=== PATIENT | male | born 1945 | race Caucasian/White ===

== ENCOUNTER 2019-03-24 15:24 | Outpatient (RCR) | payer MEDICAID, SELFPAY | END 2019-04-07 00:01 | LOC: WOUND 15:24 | PROVIDERS: Family Provider Family Medicine; Visit Provider Thoracic Surgery (Cardiothoracic Vascular Surgery) | DX: Z09 Encounter for follow-up examination after completed treatment for conditions other than malignant neoplasm (principal) | CPT/HCPCS: 29581; 99212 ×2 ==

== ENCOUNTER 2020-04-05 08:42 | Outpatient (CLI) | payer MEDICAID, SELFPAY | END 2020-04-05 08:43 | disposition home or self-care (01) | LOC: WOUND 08:43 | PROVIDERS: Visit Provider Nurse Practitioner Family | DX: I87.2 Venous insufficiency (chronic) (peripheral) (principal); L97.312 Non-pressure chronic ulcer of right ankle with fat layer exposed; L97.812 Non-pressure chronic ulcer of other part of right lower leg with fat layer exposed | CPT/HCPCS: 87070; 87077; 87176; 87186; 87205; 99214 ==

== ENCOUNTER 2020-04-07 13:03 | Outpatient (CLI) | payer MEDICAID, SELFPAY | END 2020-04-07 13:04 | disposition home or self-care (01) | LOC: WOUND 13:03 | PROVIDERS: Visit Provider Nurse Practitioner Family | DX: I87.2 Venous insufficiency (chronic) (peripheral) (principal); L97.822 Non-pressure chronic ulcer of other part of left lower leg with fat layer exposed; L97.312 Non-pressure chronic ulcer of right ankle with fat layer exposed | CPT/HCPCS: 29581 ==

== ENCOUNTER 2020-04-12 13:10 | Outpatient (CLI) | payer MEDICAID, SELFPAY | END 2020-04-12 13:11 | disposition home or self-care (01) | LOC: WOUND 13:10 | PROVIDERS: Visit Provider Thoracic Surgery (Cardiothoracic Vascular Surgery) | DX: I87.2 Venous insufficiency (chronic) (peripheral) (principal); L97.312 Non-pressure chronic ulcer of right ankle with fat layer exposed; L97.812 Non-pressure chronic ulcer of other part of right lower leg with fat layer exposed | CPT/HCPCS: 11042 ==

== ENCOUNTER 2020-04-13 13:35 | Outpatient (CLI) | payer MEDICAID, SELFPAY ==
--- NOTE | 2020-04-13 13:43 | USCV_ITS ---
Jose Weldon Age: 74 Gender: M : 1945 Exam Date: 04/13/2020 14:10 Ordering Phys: Nikolas Harris MD (Andy) ([email or web address]) Technologist: Luis Mast [place] [facility] [place]: SWELLING HISTORY: Lower extremity swelling. PROCEDURES: Venous duplex imaging was performed in only the right lower extremity. The following venous structures were evaluated: common femoral vein, profunda vein, proximal portion of the greater saphenous vein, superficial femoral vein, and the popliteal vein. In addition, the posterior tibial and peroneal trunk were evaluated. Serial compression, augmentation maneuvers, and spectral Doppler flow evaluation were performed. FINDINGS: Normal 2-D Doppler and augmentation and compressibility throughout the lower extremity venous structures. Additional imaging through the proximal calf veins also reveals no thrombus. Limited evaluation of the greater saphenous vein is patent with no thrombus. CONCLUSIONS No DVT right lower extremity. Dr. Elida Ruiz DO (Electronically Signed) Final Date: 14 April 2020 08:01 S
== END 2020-04-13 13:36 | disposition home or self-care (01) ==
LOC: RAD 13:37
PROVIDERS: Visit Provider Thoracic Surgery (Cardiothoracic Vascular Surgery)
DX: M79.89 Other specified soft tissue disorders (principal)
CPT/HCPCS: 93971

== ENCOUNTER 2020-04-13 14:54 | Outpatient (CLI) | payer MEDICAID, SELFPAY | END 2020-04-13 14:55 | disposition home or self-care (01) | LOC: WOUND 14:54 | PROVIDERS: Visit Provider Nurse Practitioner Family | DX: I87.2 Venous insufficiency (chronic) (peripheral) (principal); L97.312 Non-pressure chronic ulcer of right ankle with fat layer exposed; L97.822 Non-pressure chronic ulcer of other part of left lower leg with fat layer exposed | CPT/HCPCS: 29581 ==

== ENCOUNTER 2020-04-17 16:47 | Emergency (ER) | payer MEDICAID, SELFPAY ==
[2020-04-17 16:59] VITALS: BP 107/70; PULSE 75; RESP 14; TEMP 36.9; O2SAT 99; BMI 20.9
[2020-04-17 18:26] VITALS: BP 156/87; PULSE 82; RESP 18; O2SAT 100
--- NOTE | 2020-04-17 18:53 | CTR_ITS ---
PROCEDURE INFORMATION: Exam: CT Abdomen And Pelvis With Contrast Exam date and time: 04/17/2020 7:05 PM Age: 74 years old Clinical indication: Abdominal pain; Prior surgery; Surgery type: Hernia; Additional info: Rlq pain TECHNIQUE: Imaging protocol: Computed tomography of the abdomen and pelvis with intravenous contrast. Total images: 212 Radiation optimization: All CT scans at this facility use at least one of these dose optimization techniques: automated exposure control; mA and/or kV adjustment per patient size (includes targeted exams where dose is matched to clinical indication); or iterative reconstruction. Contrast material: OMNI 300; Contrast volume: 95 ml; Contrast route: INTRAVENOUS (IV); COMPARISON: No relevant prior studies available. RADIATION DOSE METRICS: Total DLP (mGy-cm): 328.91 FINDINGS: Lungs: Limited assessment of the lung bases fails to reveal evidence for active cardiopulmonary process. Liver: Rare hepatic calcified granuloma. No visible hepatic mass or cystic structure. Gallbladder and bile ducts: Gallbladder is partially contracted. No visible cholelithiasis. No visible intra or extrahepatic biliary ectasia. Pancreas: Unremarkable for age. No ductal dilation. Spleen: Normal. No splenomegaly. Adrenal glands: Unremarkable. No mass. Kidneys and ureters: Bilateral small simple renal cortical cysts. No follow-up recommended. No hydronephrosis or perinephric fluid. No visible nephrolithiasis. No visible ureterolithiasis. Stomach and bowel: Heavy fecal residue consistent with constipation. Nonobstructive bowel pattern. No visible significant adynamic or reactive ileus. Appendix: No evidence of appendicitis. Intraperitoneal space: No visible pneumoperitoneum. No visible intraperitoneal ascites. No visible evidence of mesenteric lymphadenitis or active mesenteritis/panniculitis. Vasculature: The abdominal aorta is nonaneurysmal. Mild arterial sclerotic disease. Lymph nodes: No current visible evidence of active mesenteric or retroperitoneal lymphadenopathy. Urinary bladder: Large right lateral bladder diverticulum measuring 51 mm x 31 mm x 49 mm. Within the diverticulum is a 5 mm bladder stone. Distended urinary bladder. Reproductive: Prostate hypertrophy. Bones/joints: No visible active or acute osseous abnormality. Degenerative disc disease L4/5 and L5/S1. Mild spondylosis deformans. Facet arthrosis. Dysplastic right hip. Soft tissues: Unremarkable. CT/CT abdomen pelvis w con* [id number] IMPRESSION: 1. Currently no visible evidence of acute abdominal or pelvic pathologic process. 2. Heavy fecal residue consistent with constipation. 3. Large right lateral bladder diverticulum containing a 5 mm bladder stone. 4. Other nonurgent, nonemergent, chronic, and age related findings as detailed in text above. COMMENTS: Consistent with the [employer]'s Incidental Findings Committee white paper (J Am Elizabeth Radiol 2018): Any incidental renal lesion less than 1 cm or classified as too small to characterize, or any incidental cystic renal lesion characterized as simple-appearing, is likely benign. No follow-up imaging is recommended for these lesions per consensus recommendations based on imaging criteria. Radiation Dose CTDIVOL = (mGy): DLP = 328.91 (mGy-cm)
[2020-04-17] MEDS: sodium chloride 0.9% 1,000 ML 999 ML IV (18:56)
[2020-04-17 19:08] VITALS: BP 150/72; PULSE 61; RESP 16; O2SAT 100
[2020-04-17 19:08] LABS: Add Urine Microscopic? NO
[2020-04-17 19:08] LABS: Basophils # 0.1 10^3/uL (0.0-0.1); Eosinophils # 0.5 10^3/uL (0.0-0.8); Hematocrit 41.1 % (42.0-52.0); Hemoglobin 13.3 g/dL (11.7-16.6); Lymphocytes # 1.7 10^3/uL (0.8-4.8); Lymphocytes % 24.2 %; Mean Corpuscular HGB Conc 32.4 g/dL (30.0-36.0); Mean Corpuscular Hemoglobin 31.4 pg (28.0-34.0); Mean Corpuscular Volume 96.9 fL (80-94); Mean Platelet Volume 10.2 fL (7.4-10.4); Monocytes # 0.7 10^3/uL (0.2-0.9); Monocytes % 9.8 %; Neutrophils # 4.15 10^3/uL (1.8-7.7); Neutrophils % 57.9 %; Nucleated Red Blood Cells % 0 %; Platelet Count 238 10^3/cmm (130-400); Red Blood Count 4.24 10^6/uL (4.1-5.3); Red Cell Distribution Width 13.9 % (12.1-15.1); White Blood Count 7.2 10^3/uL (4.0-10.0)
[2020-04-17 19:23] LABS: Bilirubin Urine Neg (Negative); Blood Urine Neg (Negative); Glucose Urine UA Norm (Normal); Ketones Urine Negative (Negative); Nitrate Urine Negative (Negative); Protein Urine Neg (Negative); Specific Gravity, Urine 1.015 (1.005-1.030); Urine Appearance Clear (CLEAR); Urine Color Yellow (Yellow); pH Urine 7 (5-7)
[2020-04-17 19:23] LABS: Lactate (Lactic Acid level) 1.1 mmol/L (0.5-2.2)
[2020-04-17 19:24] LABS: Alanine Aminotransferase 12 U/L (0-41); Albumin Level 3.7 g/dL (3.5-5.2); Alkaline Phosphatase 115 IU/L (40-130); Anion Gap 10.9 (5-19); Blood Urea Nitrogen 14 mg/dL (8-23); C Reactive Protein 2.2 mg/L (0.0-4.9); Calcium 8.4 mg/dL (8.5-10.5); Carbon Dioxide 29 mmol/L (22-29); Chloride 106 mmol/L (98-107); Globulin 2.6 g/dL (1.3-4.6); Glucose 99 mg/dL (65-115); Lipase 15 U/L (13-60); Osmolality Calculated 295 mOsm/kg (285-295); Potassium 3.9 mmol/L (3.5-5.1); Sodium 142 mmol/L (136-145); Total Bilirubin 0.5 mg/dL (0.15-1.2); Total Protein 6.3 g/dL (6.6-8.7)
[2020-04-17 19:24] LABS: Leukocyte Esterase Urine Negative (Negative); Urobilinogen Urine Norm (Negative)
[2020-04-17 19:33] LABS: Aspartate Amino Transferase 19 U/L (0-40)
[2020-04-17] MEDS: iohexol 300 mg/mL 100 mL Btl IV (19:49)
[2020-04-17 20:40] VITALS: BP 124/69; PULSE 66; RESP 16; O2SAT 98
[2020-04-17 22:12] VITALS: BP 121/67; PULSE 60; RESP 18; O2SAT 99
--- NOTE | 2020-04-18 00:07 | ED_ITS ---
HPI - Abdominal Pain General: Chief Complaint: Abdominal Pain Stated Complaint: Rt side pain Time Seen by Provider: 04/17/20 18:36 History of Present Illness: HPI narrative: He 4-year-old gentleman complains of right-sided belly pain for the past couple of days. No fever, no vomiting. The pain is a sharp stabbing pain that is intermittent. He notes that he has not had a bowel movement in a couple of days despite taking stool softeners. He also complains of a rash to his forearms, neck, and legs. He has been using a vinegar, and alcohol on the rash without improvement. He has been on antibiotics for cellulitis to his right lower extremity under wound care. He was first on cephalexin, and then has been on clindamycin for a couple of weeks. The rash started while on Keflex, but has continued on the clindamycin. He notes that he may have had contact with someone with a similar rash from home health. MD elicited complaint: abdominal pain Onset (ago): day(s) Pain Consistency: intermittent Location: RUQ and RLQ Severity: moderate Quality: sharp Relieving factors: nothing Associated Symptoms: Reports constipation; Denies diarrhea, dysuria, fever(s) and hematemesis Review of Systems Const: Denies: fever(s) Card: Denies: chest pain or palpitations Resp: Denies: dyspnea, productive cough, non-productive cough or wheezing GI: Reports: constipation; Denies: hematemesis or diarrhea : Denies: dysuria Neuro: Denies: headache(s) or confusion PFS ED PFSH: Social History (Updated 03/22/20 @ 12:02 by Juany Gutierrez LPN) Smoking and tobacco status: former smoker Second hand smoke exposure: Yes Alcohol intake: never Physical Exam Const: COMMON NORMALS: no acute distress, patient oriented x3 and alert Eye: COMMON NORMALS: Equal, round and reactive pupils present and EOMs intact bilaterally PUPIL: Yes Equal, round and reactive pupils present Chest: COMMONS NORMALS: normal inspection of the chest Resp: COMMON NORMALS: normal respiratory effort, No retractions, No use of accessory muscles and clear to auscultation bilaterally AUSCULTATION: clear to auscultation bilaterally Cardio: COMMON NORMALS: regular rate and regular rhythm RATE: regular rate RHYTHM: regular rhythm GI: COMMON NORMALS: Normal to inspection, nondistended, normoactive bowel soun ds present PALPATION: Yes Tenderness to palpation present (GI) (mild) Details: RLQ PERCUSSION: normal to percussion Neuro: COMMON NORMALS: patient oriented x3 SENSORIUM/ORIENTATION: Yes alert Skin: NARRATIVE SKIN EXAM: Micropapular rash to extremities and neck with plaques and some lichenification to the forearms. Likely folliculitis but in the differential would be scabies type rash. Course Vital Signs: Vital signs: Vital Signs Temperature 98.4 F 04/17/20 16:59 Pulse Rate 60 04/17/20 22:12 Respiratory Rate 18 04/17/20 22:12 Blood Pressure 121/67 04/17/20 22:12 Pulse Oximetry 99 04/17/20 22:12 MDM - Abdominal Pain MDM Narrative: Medical decision making narrative: White blood cell count 7.2. Electrolytes are normal. Hemoglobin 13.3. CT is remarkable for constipation without acute changes. Rash appears to be folliculitis versus scabies he will be prescribed magnesium citrate for constipation, triamcinolone ointment for the rash, and permethrin ointment because scabies is in the differential. Lab Data: Labs: Lab Results 04/17/20 04/17/20 04/17/20 Range/Units 18:52 18:52 18:52 WBC 7.2 (4.0-10.0) 10^3/ uL RBC 4.24 (4.1-5.3) 10^6/u L Hgb 13.3 (11.7-16.6) g/dL Hct 41.1 L (42.0-52.0) % MCV 96.9 H (80-94) fL MCH 31.4 (28.0-34.0) pg MCHC 32.4 (30.0-36.0) g/dL RDW 13.9 (12.1-15.1) % Plt Count 238 (130-400) 10^3/c mm MPV 10.2 (7.4-10.4) fL Neut % (Auto) 57.9 % Lymph % (Auto) 24.2 % [place] % (Auto) 9.8 % Eos % (Auto) 7.0 % Baso % (Auto) 1.0 % Neut # (Auto) 4.15 (1.8-7.7) 10^3/u L Lymph # (Auto) 1.7 (0.8-4.8) 10^3/u L [place] # (Auto) 0.7 (0.2-0.9) 10^3/u L Eos # (Auto) 0.5 (0.0-0.8) 10^3/u L Baso # (Auto) 0.1 (0.0-0.1) 10^3/u L Nucleated RBC % (a uto) 0 % Nucleated RBCs # 0.0 /100WBC Sodium 142 (136-145) mmol/L Potassium 3.9 (3.5-5.1) mmol/L Chloride 106 (98-107) mmol/L Carbon Dioxide 29 (22-29) mmol/L Anion Gap 10.9 (5-19) BUN 14 (8-23) mg/dL Creatinine 0.7 (0.7-1.2) mg/dL GFR Calculation Not Reportable Glucose 99 (65-115) mg/dL Calculated Osmolal ity 295 (285-295) mOsm/k g Lactate 1.1 (0.5-2.2) mmol/L Calcium 8.4 L (8.5-10.5) mg/dL Total Bilirubin 0.5 (0.15-1.2) mg/dL AST 19 (0-40) U/L ALT 12 (0-41) U/L Alkaline Phosphata se 115 (40-130) IU/L C-Reactive Protein 2.2 (0.0-4.9) mg/L Total Protein 6.3 L (6.6-8.7) g/dL Albumin 3.7 (3.5-5.2) g/dL Globulin 2.6 (1.3-4.6) g/dL Lipase 15 (13-60) U/L Urine Color (Yellow) Urine Appearance (CLEAR) Urine pH (5-7) Ur Specific Gravit y (1.005-1.030) Urine Protein (Negative) Urine Glucose (UA) (Normal) Urine Ketones (Negative) Urine Blood (Negative) Urine Nitrate (Negative) Urine Bilirubin (Negative) Urine Urobilinogen (Negative) mg/dL Ur Leukocyte Elena ase (Negative) 04/17/20 Range/Units 18:56 WBC (4.0-10.0) 10^3/ uL RBC (4.1-5.3) 10^6/u L Hgb (11.7-16.6) g/dL Hct (42.0-52.0) % MCV (80-94) fL MCH (28.0-34.0) pg MCHC (30.0-36.0) g/dL RDW (12.1-15.1) % Plt Count (130-400) 10^3/c mm MPV (7.4-10.4) fL Neut % (Auto) % Lymph % (Auto) % [place] % (Auto) % Eos % (Auto) % Baso % (Auto) % Neut # (Auto) (1.8-7.7) 10^3/u L Lymph # (Auto) (0.8-4.8) 10^3/u L [place] # (Auto) (0.2-0.9) 10^3/u L Eos # (Auto) (0.0-0.8) 10^3/u L Baso # (Auto) (0.0-0.1) 10^3/u L Nucleated RBC % (a uto) % Nucleated RBCs # /100WBC Sodium (136-145) mmol/L Potassium (3.5-5.1) mmol/L Chloride (98-107) mmol/L Carbon Dioxide (22-29) mmol/L Anion Gap (5-19) BUN (8-23) mg/dL Creatinine (0.7-1.2) mg/dL GFR Calculation Glucose (65-115) mg/dL Calculated Osmolal ity (285-295) mOsm/k g Lactate (0.5-2.2) mmol/L Calcium (8.5-10.5) mg/dL Total Bilirubin (0.15-1.2) mg/dL AST (0-40) U/L ALT (0-41) U/L Alkaline Phosphata se (40-130) IU/L C-Reactive Protein (0.0-4.9) mg/L Total Protein (6.6-8.7) g/dL Albumin (3.5-5.2) g/dL Globulin (1.3-4.6) g/dL Lipase (13-60) U/L Urine Color Yellow (Yellow) Urine Appearance Clear (CLEAR) Urine pH 7 (5-7) Ur Specific Gravit y 1.015 (1.005-1.030) Urine Protein Neg (Negative) Urine Glucose (UA) Norm (Normal) Urine Ketones Negative (Negative) Urine Blood Neg (Negative) Urine Nitrate Negative (Negative) Urine Bilirubin Neg (Negative) Urine Urobilinogen Norm (Negative) mg/dL Ur Leukocyte Elena ase Negative (Negative) Discharge Plan Discharge Patient Disposition: Home Clinical Impression: Folliculitis Constipation Qualifiers: Constipation type: slow transit constipation Qualified Code(s): K59.01 - Slow transit constipation Condition: Stable Prescriptions: New triamcinolone acetonide 0.1 % ointment 1 applic topical BID Qty: 80 RF: 0 permethrin 5 % cream 1 applic topical Q14D Qty: 60 RF: 1 No Action aspirin 81 mg tablet,delayed release (DR/EC) 81 mg PO DAILY PRNRF: 0 cephalexin 500 mg capsule 500 mg PO QID 7 Days Qty: 28 RF: 0 mupirocin 2 % ointment 1 applic topical TID 7 Days Qty: 15 RF: 0 Discharge Orders: Discharge ED (Routine); Ordered 04/17/20 Ordered By: Bhupendra Forde Discharge Diet: Advance as tolerated Discharge Activity: Increase activity as tolerated Patient Instructions: Constipation (ED), Scabies (ED), Folliculitis (ED) Coding Level of 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
== END 2020-04-17 22:14 | disposition home or self-care (01) ==
PROVIDERS: Emergency Provider Emergency Medicine
DX: K59.01 Slow transit constipation (principal); L73.9 Follicular disorder, unspecified; Z79.82 Long term (current) use of aspirin; Z77.22 Contact with and (suspected) exposure to environmental tobacco smoke (acute) (chronic)
CPT/HCPCS: 12345; 74177; 80053; 81003; 83605; 83690; 85025; 86140; 96360; 99283; J7030; Q9967

== ENCOUNTER 2020-04-19 09:54 | Outpatient (CLI) | payer MEDICAID, SELFPAY | END 2020-04-19 09:55 | disposition home or self-care (01) | LOC: WOUND 09:55 | PROVIDERS: Visit Provider Thoracic Surgery (Cardiothoracic Vascular Surgery) | DX: I87.2 Venous insufficiency (chronic) (peripheral) (principal); L97.312 Non-pressure chronic ulcer of right ankle with fat layer exposed; L97.812 Non-pressure chronic ulcer of other part of right lower leg with fat layer exposed | CPT/HCPCS: 11042 ==

== ENCOUNTER 2020-04-26 13:33 | Outpatient (CLI) | payer MEDICAID, SELFPAY | END 2020-04-26 13:34 | disposition home or self-care (01) | LOC: WOUND 13:34 | PROVIDERS: Visit Provider Thoracic Surgery (Cardiothoracic Vascular Surgery) | DX: I87.2 Venous insufficiency (chronic) (peripheral) (principal); L97.312 Non-pressure chronic ulcer of right ankle with fat layer exposed | CPT/HCPCS: 11042 ==

== ENCOUNTER 2020-05-03 13:30 | Outpatient (CLI) | payer MEDICAID, SELFPAY | END 2020-05-03 13:31 | disposition home or self-care (01) | LOC: WOUND 13:31 | PROVIDERS: Visit Provider Thoracic Surgery (Cardiothoracic Vascular Surgery) | DX: I87.2 Venous insufficiency (chronic) (peripheral) (principal); L97.312 Non-pressure chronic ulcer of right ankle with fat layer exposed; E11.622 Type 2 diabetes mellitus with other skin ulcer | CPT/HCPCS: 11042 ==

== ENCOUNTER 2020-05-10 13:38 | Outpatient (CLI) | payer MEDICAID, SELFPAY | END 2020-05-10 13:39 | disposition home or self-care (01) | LOC: WOUND 13:38 | PROVIDERS: PCP Nurse Practitioner Family; Visit Provider Thoracic Surgery (Cardiothoracic Vascular Surgery) | DX: Z09 Encounter for follow-up examination after completed treatment for conditions other than malignant neoplasm (principal) | CPT/HCPCS: 99212; A6530; A6545 ==

== ENCOUNTER 2020-05-11 11:53 | Outpatient (CLI) | payer MEDICAID, SELFPAY ==
--- NOTE | 2020-05-11 12:06 | XR_ITS ---
WS: [id number] KUB, AP view, 05/11/2020 Clinical Data: Stones Comparison: CT abdomen and pelvis, 04/17/2020 Findings: No abnormal intraabdominal masses are seen. There is no dilatated small bowel or evidence of obstruct ion. There is air and fecal material obscuring detail over both kidneys. There are phleboliths in the true pelvis. There is a calcification on the right side of the true pelvis which may represent the calcul us in the bladder diverticulum. XR/XR KUB [id number] Impression: Possible right true pelvic calcification in a bladder diverticulum.
== END 2020-05-11 11:54 | disposition home or self-care (01) ==
PROVIDERS: PCP Nurse Practitioner Family; Visit Provider Urology
DX: N21.0 Calculus in bladder (principal)
CPT/HCPCS: 74018; 81003

== ENCOUNTER → 2020-05-24 12:45 | Outpatient (BNVA) | payer MEDICAID, SELFPAY | PROVIDERS: PCP Nurse Practitioner Family; Visit Provider Urology | DX: N40.1 Benign prostatic hyperplasia with lower urinary tract symptoms (principal) | CPT/HCPCS: 87635 ==

== ENCOUNTER 2020-05-30 15:44 | Observation (INO) | payer MEDICAID, SELFPAY ==
[2020-05-27 10:44] VITALS: BMI 21.4
[2020-05-30] VITALS (13 sets, daily range): BP systolic 111–157; BP diastolic 50–91; PULSE 69–84; RESP 15–20; TEMP 36.2–37; O2SAT 94–99
--- NOTE | 2020-05-30 12:18 | XR_ITS ---
WS: [id number] Exam: XR chest 2V* [id number] Date/Time of Exam: 05/30/2020 12:25 PM Reason For Exam: TURP. Comparison 11/18/2018. The lungs are hyperinflated and clear. Several small calcified pleural plaques on the left. Normal ca rdiomediastinal structures. Bilateral apical pleural thickening. XR/XR chest 2V* [id number] IMPRESSION: 1. Pulmonary hyperinflation which might indicate COPD. No acute cardiopulmonary process.
[2020-05-30] MEDS: sodium chloride 0.9% 1,000 ML 30 ML IV ×2 (13:13→18:33)
--- NOTE | 2020-05-30 13:26 | ANES.PREANE2 ---
Pre-Anesthetic Assessment Pre-Anesthetic Assessment: Height/Weight: Height 1.83 m Weight 71.668 kg Temp Pulse Resp BP Pulse Ox 98.6 F 69 18 144/91 98 05/30/20 12:33 05/30/20 12:33 05/30/20 12:33 05/30/20 12:33 05/30/20 12:33 Preop Diagnosis: Urinary retention secondary to BPHRefractory Proposed Procedure: Operation Date: 05/30/20 13:10 Proposed Procedures p TRANSURETHRAL RESECTION/VAPORIZATION OF PROSTATE 75509 n40.1(Not Applicable) - Major Wilder MD s Cystoscopy(Not Applicable) - Major Wilder MD Was Beta Andres taken within 24 hours: N/A Last intake: Intake Last Liquid Date 05/30/20 Last Liquid Time 08:00 Last Solid Date 05/29/20 Last Solid Time 11:30 Social: Social History: No alcohol (h/o smoking quit 20yrs/ago) and No tobacco Exam: Pre-Anes Outpt Exam: alert, oriented x 3 and regular rate & rhythm Airway: Submandibular: WNL Cervical ROM: WNL MP: 2 Dentition: False Pulmonary: Pulmonary: COPD CV/HEM: CV/HEM: CAD and HTN Anesthetic Plan: ASA status: 3 Anesthesia: General Risk of > 500 ml blood loss (7ml/kg in children): No Meds/Allergies Current Medications: Current Medications Generic Name Dose Route Start Last Admin Trade Name Freq PRN Reason Stop Dose Admin Sodium Chloride 1,000 mls @ 30 ml s/hr 05/30/20 12:30 05/30/20 13:13 Sodium Chloride 0.9% IV 05/31/20 12:29 30 mls/hr .Q24H GITA Administration PFSH Anesthesia PFSH: Medical History Bladder diverticulum Bladder stone Venous stasis of both lower extremities Family History Mother Cancer Father Cancer Other CAD (coronary artery disease) Diabetes Social History Smoking and tobacco status: former smoker Second hand smoke exposure: Yes Alcohol intake: never Data Anesthesia CBC & Chem 7: 05/30/20 13:09 Cardiac Studies: No Data to Display
[2020-05-30 13:35] LABS: Basophils # 0.1 10^3/uL (0.0-0.1); Basophils % 1.2 %; Eosinophils # 0.2 10^3/uL (0.0-0.8); Eosinophils % 3.2 %; Hematocrit 39.1 % (42.0-52.0); Hemoglobin 12.4 g/dL (11.7-16.6); Lymphocytes # 1.3 10^3/uL (0.8-4.8); Lymphocytes % 22.8 %; Mean Corpuscular HGB Conc 31.7 g/dL (30.0-36.0); Mean Corpuscular Hemoglobin 30.5 pg (28.0-34.0); Mean Corpuscular Volume 96.3 fL (80-94); Mean Platelet Volume 9.6 fL (7.4-10.4); Monocytes # 0.7 10^3/uL (0.2-0.9); Monocytes % 12.2 %; Neutrophils # 3.54 10^3/uL (1.8-7.7); Neutrophils % 60.3 %; Nucleated Red Blood Cells % 0 %; Platelet Count 299 10^3/cmm (130-400); Red Blood Count 4.06 10^6/uL (4.1-5.3); Red Cell Distribution Width 13.3 % (12.1-15.1); White Blood Count 5.9 10^3/uL (4.0-10.0)
--- NOTE | 2020-05-30 14:12 | P.OP_ITS ---
Operative Report Date of procedure: May 30, 2020 Pre-op Diagnosis: Urinary retention secondary to BPH, Refractory Post-op diagnosis: same Procedure Done: Cystoscopy, transurethral resection/vaporization of the prostate Pathology: none sent Surgeon: Tina Anesthesia: General Urine output: Not measured Complications: None Findings: Trilobar enlargement of the prostate. Large intravesically protruding median lobe. Moderate to severe trabeculation. Condition: stable Disposition: PACU Brief History: 74-year-old white male with chronic progressive lower urinary tract symptoms consistent with BPH/obstruction and corresponding cystoscopic findings including trilobar enlargement of the prostate with a large intravesically protruding median lobe acting as a ball-valve type effect. Severely trabeculated bladder with multiple cellules and diverticuli. Overall some decline in cognitive function making a trial of intermittent catheterization not a good choice and based on the chronic findings it was elected to proceed with TURP/TUVP. Procedure: After routine preoperative evaluation examination and obtaining of informed consent he was taken to the operating suite on 05/30/2020 where general anesthesia was administered without difficulty after appropriate timeout was performed, SCDs confirmed to be functioning, preoperative antibiotics administered, beta-pham protocol confirmed. Prepped and draped in usual sterile fashion in dorsolithotomy position paying careful attention to avoiding pressure points. 21 Italian cystoscope with 30 degree lens was introduced into urethral meatus and advanced into the bladder under videoscopy. Trilobar enlargement of the prostate with a very large intravesically protruding median lobe acting as a ball valve was identified. Bladder was carefully inspected. No mucosal abnormalities were identified. He did have severe trabeculation and multiple diverticuli. Urethra was then calibrated with Daly sounds and easily accommodated 30 Italian. 2% lidocaine jelly was instilled into the urethra then a 25 Italian continuous- flow resectoscope sheath with visual obturator in place was advanced into the bladder without difficulty. The bipolar gyrus system was utilized with supersect for resection and button probe for vaporization. Based on the friability of the bladder neck intravesically protruding median lobe it was decided to begin the procedure with the button probe. A large bulk of the median lobe was vaporized down to about half of its total mass and then at that point resection was conducted with the supersect extending the incision all the way down to the bladder wall and in through the bladder neck. Prior to completing this portion of the resection the orifices were identified and thankfully well away from the area of resection they were spared throughout. Attention was then directed to the left lateral lobe with initial resection with the supersect at the 12 o'clock position extending down to the 5 o'clock position and then the right lateral lobe and the same fashion from the 12:00 to the 7 o'clock position. There was a large portion of the posterior floor that remained with bulky adenoma and this was vaporized with the button probe. The resection was extended from the bladder neck out to the verumontanum but not distal to it. It is estimated that about 70% of the prostate was vaporized and the other 30% of treatment was with resection with a supersect loop. All chips were evacuated out of the bladder. The diverticuli were inspected to confirm no chips within them. The tissue distal to the verumontanum was undisturbed and the orifices were confirmed at the completion of the procedure to be not involved anywhere close to the resection. Hemostasis was visually confirmed. The bladder was then drained with a 22 Italian three-way Khan catheter with 40 cc placed in the balloon. The catheter was irrigated with clear reflux. It was placed to very slow flow CBI with normal saline. He tolerated the procedure well without complications and was awakened in the operating room and returned to the recovery in stable condition. PLANS: 1. Maintain overnight on observation status 2. Consider voiding trial tomorrow and if doing well consider discharge without catheter. If fails voiding trial replace catheter and consider voiding trial on follow-up in the clinic.
--- NOTE | 2020-05-30 14:12 | P.HPUD_ITS ---
Surgery/Procedure H&P Update DATE OF PROCEDURE: May 30, 2020 DATE H&P PERFORMED: 05/24/20 H&P UPDATE INFORMATION: I have reviewed H&P completed within last 30 days, I have examined patient prior to procedure, No changes to prior documentation and H&P is in [facility] [place] EMR on date indicated PREOP DIAGNOSIS: Urinary retention secondary to BPHRefractory PLANNED PROCEDURE: Operation Date: 05/30/20 13:10 Proposed Procedures p TRANSURETHRAL RESECTION/VAPORIZATION OF PROSTATE 85912 n40.1(Not Applicable) - Major Wilder MD s Cystoscopy(Not Applicable) - Major Wilder MD
[2020-05-30] MEDS: levofloxacin-dextrose 5 % 500 MG/100 ML PREMIX 100 MG IV (14:21)
[2020-05-30] MEDS: lidocaine 2% Urojet 20 mL TOPICAL (14:47)
--- NOTE | 2020-05-30 16:31 | SUR.PHASEI ---
PT AWAKE ALERT , ORAL AIRWAYOUT AT 1622 PT TAKING OCC ICE CHIPS WARM BLANKETS X 3 TO PT PER PT VERBAL REQUEST, PT HAS CAZARES CATH [address] WITH NS CBI AT SLOW RATE, CAZARES TO DD URINE CLEAR YELLOW. PT REQUESTS DR MONTOYA TO SIP ON, PT AWAKE ALERT ORIENTED X 3
--- NOTE | 2020-05-30 16:36 | ANE.PACU2 ---
Inpatient post-anesthesia follow up: Airway intact: Yes Vital signs: Temperature 97.2 F Pulse Rate 84 Respiratory Rate 20 Blood Pressure 148/66 Pulse Oximetry 99 Oxygen Delivery Me thod Room Air Oxygen Flow Rate 8 Fraction of Inspir ed Oxygen Hydration adequate: Yes Nausea and vomiting: No Pain level: 1 Mental status: Baseline
[2020-05-30] MEDS: tamsulosin 0.4 mg Capsule PO (18:33)
[2020-05-31] VITALS (7 sets, daily range): BP systolic 94–116; BP diastolic 52–65; PULSE 65–82; RESP 17–20; TEMP 36.6–37.8; O2SAT 94–97
[2020-05-31] MEDS: levoFLOXacin 250 mg Tablet PO (06:07)
[2020-05-31] MEDS: docusate sodium 100 mg Capsule PO (08:49)
--- NOTE | 2020-05-31 09:57 | PC.CHAP ---
Pastoral Care Encounter/Spiritual Assessment Type of Contact [] Declined guidance adviser visit [] Patient/Family/Request visit [] Outpatient visit [] Follow-up visit [] Physician referral [] Code/Alert [x] Routine visit [] Staff referral [] Actively dying [] Patient sleeping [] Family support [] [] Out of room [] Palliative care [] [] Receiving care in room [] Pre-surgical visit [] Trauma [] Long length of stay [] ICU visit [] Other: Relational/Emotional Strength [x] Patient feels connected with others/family/visitors/staff [] Distress [] Loneliness/isolation [] Abandonment Spirituality of Patient [x] Person of Hilda [x] Attends Religious of their Hilda [] Believes in Prayer [] Reads Bible or Restoration materials [] There are Spiritual issues to be addressed Nail Professional Interventions [x]x Prayer [x] Active listening [x] Non-anxious presence [] Spiritual/emotional support [] Crisis/trauma care [] Spiritual counseling [] Bereavement support [] Provided bereavement packet [] Provided Bible/devotional materials [] Provided toy/stuffed animal, coloring book to patient or family member [] Provided Communion [] Anointing/[place] [] Salvation [x] Completed spiritual assessment [] Other: Impact on Illness or Injury [] Angry [] Fearful [] Anxious [] Often cries [] Exhaustion [] Unable to work [] Unable to attend moravian [] Unable to walk/stand [] Unable to read [] Unable to drive [] Unable to eat/drink [] Unable to sleep [] Unable to be with family [] Patient intubated [] Other: Summary patient still little sore but says better Time spent with patient 10 min
[2020-05-31] MEDS: tamsulosin 0.4 mg Capsule PO (17:00)
--- NOTE | 2020-05-31 18:29 | PM.PN ---
Subjective Subjective: Interval history: Urology follow-up: Postop day #1 TURP Urine was clear this morning. Khan catheter was removed. Had delayed recovery of voiding but it appeared that he was emptying reasonably well. Over the day his urine has become slightly more bloody. Have recommended based on his rather frail status to change him to admit status for second overnight stay. We will check and out cath PVRs tonight to confirm adequate emptying and if he does well with that and his urine clears appropriately can be discharged tomorrow. Denies chest pain shortness of breath fever or chills. Vitals/I&O/Wt Last Vital Signs Temp 97.9 F 05/31/20 15:54 Pulse 82 05/31/20 15:54 Resp 18 05/31/20 15:54 BP 108/65 05/31/20 15:54 Pulse Ox 95 05/31/20 15:54 05/31/20 05/31/20 05/31/20 06:59 14:59 22:59 Intake Total 8392.5 / 8492.5 360 / 360 481.5 / 841.5 Output Total 300 / 1400 335 / 335 110 / 445 Balance 8092.5 / 7092.5 25 / 25 371.5 / 396.5 Physical Exam Const: COMMON NORMALS: no acute distress, alert and well nourished GENERAL APPEARANCE: well kempt and well developed ORIENTATION/CONSCIOUSNESS: not confused Resp: COMMON NORMALS: normal respiratory effort EFFORT & INSPECTION: No labored and No Actively coughing Extremity: COMMON NORMALS: no clubbing, cyanosis or edema Neuro: COMMON NORMALS: no focal motor deficits SENSORIUM/ORIENTATION: Yes alert Psych: APPEARANCE: Yes grossly normal and Yes well kempt ATTITUDE: Yes calm and Yes engaged Skin: COMMON NORMALS: no rashes or lesions noted and no jaundice GENERAL SKIN EXAM: no rashes or lesions noted Urinary Catheter Management^: Khan: Cath Placed During This Visit: yes, but has since been removed by the nurse Reason for Continuing Indwelling Catheter: Decision to DC Catheter Urinary Catheter Date of Insertion: 05/30/20 Urinary Catheter Time of Insertion: 16:08 Date Urinary Catheter Removed: 05/31/20 Time Urinary Catheter Discontinued: 10:01 Data : 05/30/20 13:09 A&P Assessment and plan (1) BPH loc w urin obs/LUTS: Status: Acute Attestations Medical Necessity Statement*: Maintain and house care overnight. Confirm adequate emptying. Watch closely for significant bleeding. Coding Level of Care Code Acute Transfer And Pumphouse Operator Chief for [facility] Fwd Diagnoses BPH loc w urin obs/LUTS N40.1
[2020-05-31] MEDS: sodium chloride 0.9% 1,000 ML 30 ML IV (18:32)
--- NOTE | 2020-05-31 23:09 | PC.NURSE ---
pt has been educated multiple times of the importance of straight cathing when he feels the urge to void. He has forgotten at his first void at beginning of shift. Will attempt to catch his second void by checking with the patient periodically.
[2020-06-01] VITALS: BP 128/73; PULSE 86; RESP 18; TEMP 37.2; O2SAT 95
--- NOTE | 2020-06-01 00:16 | PC.NURSE ---
was able to straight cath patient and 400ml light tanna urine was evacuated from bladder. Pt previous void was 100ml out. Pt tolerated catheter insertion well with mild discomfort and minimal bleeding. Pt abdomen still distended to sight and touch, without noted change after cath. Pt also states he has not had a bowel movement recently and feels he is stopped up .
[2020-06-01 03:45] VITALS: BP 123/68; PULSE 74; RESP 20; TEMP 37.8; O2SAT 96
[2020-06-01] MEDS: levoFLOXacin 250 mg Tablet PO (06:03)
--- NOTE | 2020-06-01 07:27 | PM.PN ---
Subjective Subjective: Interval history: Urology follow-up: Postop day #3 1 post void residual cath last night was about 400 cc. Has voided multiple times since that time and at times large volumes. We will check again with post void bladder scan and intermittent cath to confirm adequate emptying or replace the catheter. Complaining of left-sided hemiscrotal pain. Physical exam reveals evidence of epididymitis. He had a catheter in for prolonged period of time before the procedure I expect he had developed epididymitis. The symptoms have worsened while on LEVAQUIN so I will change that BACTRIM DS. We will send urine for culture via cath specimen from checking PVR with in and out cath Plan: 1. Observe over the morning. Reassess at noon to see if safe to go home. He did have a low-grade temperature this morning. We will need to make sure that that is not progressing. Vitals/I&O/Wt Last Vital Signs Temp 100.1 F H 06/01/20 03:45 Pulse 74 06/01/20 03:45 Resp 20 H 06/01/20 03:45 BP 123/68 06/01/20 03:45 Pulse Ox 96 06/01/20 03:45 05/31/20 06/01/20 06/01/20 22:59 06:59 14:59 Intake Total 527.0 / 887.0 100 / 987.0 Output Total 210 / 545 1000 / 1545 Balance 317.0 / 342.0 -900 / -558.0 Physical Exam GI: COMMON NORMALS: Soft to palpation and non-tender PALPATION: Yes Soft to palpation : MALE GROIN/PERINEUM EXAM: No ecchymosis and No hernia PENIS: normal penis MEATUS: meatus normal, no meatla discharge and No Blood at meatus present SCROTUM: Yes testes descended bilaterally TESTES: No absent testicle, No testicular tenderness, No testicular mass and Yes epididymal tenderness (Left consistent with epididymitis) Urinary Catheter Management^: Khan: Cath Placed During This Visit: yes, but has since been removed by the nurse Reason for Continuing Indwelling Catheter: Decision to DC Catheter Urinary Catheter Date of Insertion: 05/30/20 Urinary Catheter Time of Insertion: 16:08 Date Urinary Catheter Removed: 05/31/20 Time Urinary Catheter Discontinued: 10:01 Data : 05/30/20 13:09 A&P Assessment and plan (1) Left epididymitis: Presented to the hospital with indwelling Khan catheter. Likely source of epididymitis. Worsening on LEVAQUIN. We will stop it and start BACTRIM DS and send culture. Low-grade temperature last night. We will watch closely before making decision for discharge. Status: Acute (2) BPH loc w urin obs/LUTS: Status: Acute (3) Incomplete bladder emptyin PVR check with in and out cath last night was about 400 cc. Will confirm today by in and out cath where we stand now. Replace Khan catheter if persistently elevated. Status: Acute Attestations Medical Necessity Statement*: See above. Low-grade temperature, worsening of epididymitis, need to confirm bladder status as well as epididymitis status before discharge. Still may go home later today. Coding Level of Care Code Acute Computer Numerical Control Grinder for [facility] Fwd Diagnoses Left epididymitis N45.1 BPH loc w urin obs/LUTS N40.1 Incomplete bladder emptying R33.9
--- NOTE | 2020-06-01 07:48 | PC.NURSE ---
PATIENT VOIDED 250ML OF CLEAR URINE. THIS NURSE BLADDER SCANNED PATIENT AND PVR WAS 399ML THIS NURSE INSERTED AN IN AND OUT CATHETER AND RECEIVED 250ML. DR. SOTOMAYOR NOTIFIED.
[2020-06-01] MEDS: sulfamethoxazole-trimeth DS 160-800 mg Tablet 1 TAB PO (07:54)
[2020-06-01] MEDS: docusate sodium 100 mg Capsule PO (07:54)
[2020-06-01 08:00] VITALS: BP 131/73; PULSE 66; RESP 17; TEMP 36.8; O2SAT 95
[2020-06-01] MEDS: bisacodyl 10 mg Supp PR (10:06)
[2020-06-01 12:00] VITALS: BP 116/70; PULSE 80; RESP 18; TEMP 37; O2SAT 95
--- NOTE | 2020-06-01 12:41 | PM.DCS ---
Discharge Providers Date of Admission: 05/31/20 18:28 Date of Discharge: June 01, 2020 Attending Provider at Admission: Major Wilder MD Attending Provider at Discharge: Major Wilder MD Primary Care Provider: BLAKE Burgos Diagnoses at Discharge Discharge Diagnosis (1) BPH loc w urin obs/LUTS: Status: Acute (2) Incomplete bladder emptying: Status: Acute (3) Left epididymitis: Status: Acute Reason for Visit Reason for Visit: TRANSURETHRAL RESECTION/VAPORIZATION OF PROSTATE Hospital Course Hospital Course He was admitted on the day of the procedure. Catheter was removed and TURP/TUVP was performed. He did very well. On postoperative day #1 his Khan catheter was removed and he voided spontaneously with clearing urine. He was not emptying adequately for discharge on the evening of postoperative day #1 therefore he was admitted and observed overnight. Initially post void residual and out catheterization showed elevated PVRs but that improved over the next day and by postoperative day #2 he was deemed a good candidate for further convalescence at home. Did not require intermittent catheterization. Was noted to have epididymitis. Preoperatively he had had a catheter in for a while which probably was the source of that. Because his epididymitis got worse while taking Levaquin his antibiotic was switched to Bactrim DS. He had 1 mild temperature elevation on the evening of postoperative day #1 but had normalized by discharge. Pain was improving at time of discharge. Discharge on postoperative day #2 in stable condition. Physical Exam Const: COMMON NORMALS: no acute distress, alert and well nourished GENERAL APPEARANCE: well kempt and well developed ORIENTATION/CONSCIOUSNESS: not confused HENMT: COMMON NORMALS: normocephalic and atraumatic HEAD & SCALP: normocephalic and atraumatic Eye: COMMON NORMALS: conjunctivae normal and no scleral icterus CONJUNCTIVA: Yes conjunctivae normal Neck/C-Spine: COMMON NORMALS: full ROM GENERAL: Yes normal visual inspection Resp: COMMON NORMALS: normal respiratory effort EFFORT & INSPECTION: No labored and No Actively coughing : OTHER: Evidence of left epididymitis. No cellulitis. No abscess. Tender on exam. Neuro: COMMON NORMALS: no focal motor deficits SENSORIUM/ORIENTATION: Yes alert Psych: APPEARANCE: Yes grossly normal and Yes well kempt ATTITUDE: Yes calm and Yes engaged Skin: COMMON NORMALS: no rashes or lesions noted and no jaundice GENERAL SKIN EXAM: no rashes or lesions noted Urinary Catheter Management^: Khan: Cath Placed During This Visit: yes, but has since been removed by the nurse Reason for Continuing Indwelling Catheter: Decision to DC Catheter Urinary Catheter Date of Insertion: 05/30/20 Urinary Catheter Time of Insertion: 16:08 Date Urinary Catheter Removed: 05/31/20 Time Urinary Catheter Discontinued: 10:01 Discharge Data Data Completed and Pending: Completed Studies During Hospitalization Category Date Time Status XR chest 2V* 7104 6 Routine Exams 05/30/20 12:18 Completed Pending at discharge Category Date Time Status Urine Culture [facility] 06/01/20 07:45 Received Pathology: Surgic al [PTH] Routine Pth 05/30/20 16:28 Received Vitals: Last Vital Signs Temp 98.6 F 06/01/20 12:00 Pulse 80 06/01/20 12:00 Resp 18 06/01/20 12:00 BP 116/70 06/01/20 12:00 Pulse Ox 95 06/01/20 12:00 Discharge Plan Discharge Patient Disposition: Home Condition: Stable Prescriptions: [place] 5-325 mg tablet 1 tab PO Q8H PRN (Reason: pain) Qty: 8 RF: 0 sulfamethoxazole-trimethoprim 800-160 mg tablet 1 tab PO BID 14 Days Qty: 28 RF: 1 Continued mupirocin 2 % ointment 1 applic topical TID 7 Days Qty: 15 RF: 0 Complete Multivitamin Tablet 1 tab PO DAILY RF: 0 biotin 2,500 mcg capsule 2,500 mcg PO DAILY RF: 0 mecobalamin (vitamin B12) 5,000 mcg tablet,disintegrating 5,000 mcg PO DAILY RF: 0 acetaminophen [Tylenol Arthritis Pain] 650 mg tablet extended release 650 mg PO Q12H RF: 0 ascorbic acid (vitamin C) 1,000 mg tablet extended release 1,000 mg PO Q12H RF: 0 docusate sodium [Stool Softener] 100 mg capsule 100 mg PO DAILY RF: 0 omega-3 fatty acids [Fish Oil Concentrate] 1,000 mg capsule 1,000 mg PO BID RF: 0 tamsulosin 0.4 mg capsule 0.4 mg PO QDAY Qty: 30 RF: 12 triamcinolone acetonide 0.1 % ointment 1 applic topical BID Qty: 80 RF: 0 permethrin 5 % cream 1 applic topical Q14D Qty: 60 RF: 1 Held aspirin 81 mg tablet,delayed release (DR/EC) 81 mg PO DAILY RF: 0 Hold Instructions: Resume on 06/10/20. Discharge Orders: Discharge Order (Routine); Ordered 06/01/20 Ordered By: Major Wilder Referrals: Major Wilder MD [Physician] - 4-7 days (Flow rate PVR AUA symptom score.) Discharge Diet: Usual diet Discharge Activity: Limit activity as instructed Activity Restrictions/Additional Instructions: 1. No lifting >10 pounds for 3+ weeks. 2. We have changed your antibiotic. Stop taking the LEVAQUIN and begin SULFAMETHOXAZOLE trimethoprim. Prescription was called to [facility]. 3. Another prescription was also called in for pain medicine if needed. Discharge Attestations Time Spent in Discharge Care*: greater than 30 min Quality Metrics Clinical Quality Measures During this hospital stay, did patient experience: None Coding Level of Care Code Acute Senior Java Web Developer for [facility] Fwd Diagnoses BPH loc w urin obs/LUTS N40.1 Incomplete bladder emptying R33.9 Left epididymitis N45.1
[2020-06-01 13:58] VITALS: BP 116/70; PULSE 80; RESP 18; TEMP 37; O2SAT 95
== END 2020-06-01 13:59 | disposition home or self-care (01) ==
LOC: MEDSURG 15:45
PROVIDERS: Admitting Provider Urology; PCP Nurse Practitioner Family; Visit Provider Urology
PROC: 0VT08ZZ Resection of Prostate, Via Natural or Artificial Opening Endoscopic (ICD-10-PCS; CPT 52601; principal; 2020-05-30 13:10)
PROC: 0TJB8ZZ Inspection of Bladder, Via Natural or Artificial Opening Endoscopic (ICD-10-PCS; CPT 52000; 2020-05-30 13:10)
DX: N40.1 Benign prostatic hyperplasia with lower urinary tract symptoms (principal); R33.8 Other retention of urine; N45.1 Epididymitis; J44.9 Chronic obstructive pulmonary disease, unspecified; I25.10 Atherosclerotic heart disease of native coronary artery without angina pectoris; I10 Essential (primary) hypertension; Z87.891 Personal history of nicotine dependence
CPT/HCPCS: 52601; 36415; 51702; 51798; 71046; 85025; 87086; 88305; 96361; 96365; G0378; J1100; J1956; J2405; J2704; J3010; J3490; J7030

== ENCOUNTER → 2020-06-08 07:44 | Outpatient (BNVA) | payer MEDICAID, SELFPAY | PROVIDERS: PCP Nurse Practitioner Family; Visit Provider Urology | DX: R33.9 Retention of urine, unspecified (principal); N30.80 Other cystitis without hematuria; N39.9 Disorder of urinary system, unspecified; N45.1 Epididymitis | CPT/HCPCS: 81003; 87077; 87086; 87184 ==

== ENCOUNTER 2020-06-10 11:00 | Outpatient (CLI) | payer MEDICAID, SELFPAY | END 2020-06-10 11:01 | disposition home or self-care (01) | LOC: LAB 11:03 | PROVIDERS: PCP Nurse Practitioner Family; Visit Provider Urology | DX: N45.1 Epididymitis (principal) | CPT/HCPCS: 36415; 81003; 85025 ==

== ENCOUNTER 2020-06-17 10:06 | Outpatient (CLI) | payer MEDICAID, SELFPAY ==
--- NOTE | 2020-06-17 08:00 | US_ITS ---
WS: [id number] SCROTAL ULTRASOUND EXAMINATION CLINICAL INFORMATION: LEFT EPIDIDYMITIS COMPARISON: None. FINDINGS: TESTES Large cystic area in the left scrotum with marked vascularity likely represents a large cystic varico tan with hydrocele. Adjacent eccentric compressed left testicle measuring 5.0 x 1.8 x 2.6 CM. Suspec summer cystic varicocele measures 6.6 x 3.3 x 6.4 CCM with a few septations Right testicle is normal in appearance. Small right hydrocele. Incidental small right testicular cyst measuring 5 mm. Right testes size: 3.8 cm x 3.3 cm x 2.7 cm. Left testes size: 5.0 cm x 2.6 cm x 1.8 cm. EPIDIDYMIDES Normal in size and echotexture, without focal lesion. Color Doppler: Normal color Doppler flow pattern. Right epididymis size: 1.8 cm x cm x cm. Left epididymitis size: 1.6 cm x cm x cm. US/US scrotum [id number] IMPRESSION: 1. Large cystic area in the left scrotum with compression of the left testicle measuring 6.6 x 3.3 x 6.4 CM with a few internal septations. Marked increased internal venous flow. 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 Recommend urology consultation. 2. Incidental 5 mm cyst right testicle. 3. Compressed left testicle measures approximately 5.0 x 1.8 x 2.6 CM.
== END 2020-06-17 10:07 | disposition home or self-care (01) ==
PROVIDERS: PCP Nurse Practitioner Family; Visit Provider Urology
DX: N45.1 Epididymitis (principal); N44.2 Benign cyst of testis
CPT/HCPCS: 76870; 81003

== ENCOUNTER → 2020-07-05 15:38 | Outpatient (BNVA) | payer MEDICAID, SELFPAY | PROVIDERS: PCP Nurse Practitioner Family; Visit Provider Urology | DX: N45.1 Epididymitis (principal); R33.9 Retention of urine, unspecified | CPT/HCPCS: 81003 ==

== ENCOUNTER → 2020-08-04 10:27 | Outpatient (BNVA) | payer MEDICAID, SELFPAY | PROVIDERS: PCP Nurse Practitioner Family; Visit Provider Urology | DX: N45.1 Epididymitis (principal); R33.9 Retention of urine, unspecified | CPT/HCPCS: 81003 ==

== ENCOUNTER 2020-09-15 13:34 | Outpatient (CLI) | payer MEDICAID, SELFPAY | END 2020-09-15 13:35 | disposition home or self-care (01) | LOC: WOUND 13:35 | PROVIDERS: PCP Nurse Practitioner Family; Visit Provider Thoracic Surgery (Cardiothoracic Vascular Surgery) | DX: I87.2 Venous insufficiency (chronic) (peripheral) (principal); L97.822 Non-pressure chronic ulcer of other part of left lower leg with fat layer exposed | CPT/HCPCS: 11042; 11045; G0463 ==

== ENCOUNTER 2020-09-19 13:32 | Outpatient (CLI) | payer MEDICAID, SELFPAY | END 2020-09-19 13:33 | disposition home or self-care (01) | LOC: WOUND 13:34 | PROVIDERS: PCP Nurse Practitioner Family; Visit Provider Thoracic Surgery (Cardiothoracic Vascular Surgery) | DX: I87.2 Venous insufficiency (chronic) (peripheral) (principal); L97.822 Non-pressure chronic ulcer of other part of left lower leg with fat layer exposed | CPT/HCPCS: 29581 ==

== ENCOUNTER 2020-09-22 14:00 | Outpatient (CLI) | payer MEDICAID, SELFPAY | END 2020-09-22 14:01 | disposition home or self-care (01) | LOC: WOUND 09-26 11:45 | PROVIDERS: PCP Nurse Practitioner Family; Visit Provider Thoracic Surgery (Cardiothoracic Vascular Surgery) | DX: I87.2 Venous insufficiency (chronic) (peripheral) (principal); L97.822 Non-pressure chronic ulcer of other part of left lower leg with fat layer exposed | CPT/HCPCS: 11042; 11045 ==

== ENCOUNTER 2020-09-26 10:55 | Outpatient (CLI) | payer MEDICAID, SELFPAY | END 2020-09-26 10:56 | disposition home or self-care (01) | LOC: WOUND 10:58 | PROVIDERS: PCP Nurse Practitioner Family; Visit Provider Nurse Practitioner Family | DX: I87.2 Venous insufficiency (chronic) (peripheral) (principal); L97.822 Non-pressure chronic ulcer of other part of left lower leg with fat layer exposed | CPT/HCPCS: 11042; 11045; 87070; 87077; 87176; 87186; 87205 ==

== ENCOUNTER → 2020-09-27 16:45 | Outpatient (BNVA) | payer MEDICAID, SELFPAY | PROVIDERS: PCP Nurse Practitioner Family; Visit Provider Urology | DX: R33.9 Retention of urine, unspecified (principal); N45.1 Epididymitis; R39.15 Urgency of urination | CPT/HCPCS: 81003 ==

== ENCOUNTER 2020-09-28 14:30 | Outpatient (CLI) | payer MEDICAID, SELFPAY | END 2020-09-28 14:31 | disposition home or self-care (01) | LOC: WOUND 14:31 | PROVIDERS: PCP Nurse Practitioner Family; Visit Provider Thoracic Surgery (Cardiothoracic Vascular Surgery) | DX: I87.2 Venous insufficiency (chronic) (peripheral) (principal); L97.822 Non-pressure chronic ulcer of other part of left lower leg with fat layer exposed | CPT/HCPCS: 29581 ==

== ENCOUNTER 2020-09-30 15:50 | Outpatient (CLI) | payer MEDICAID, SELFPAY | END 2020-09-30 15:51 | disposition home or self-care (01) | LOC: WOUND 15:51 | PROVIDERS: PCP Nurse Practitioner Family; Visit Provider Surgery | DX: I87.2 Venous insufficiency (chronic) (peripheral) (principal); L97.822 Non-pressure chronic ulcer of other part of left lower leg with fat layer exposed | CPT/HCPCS: 29581 ==

== ENCOUNTER 2020-10-03 15:28 | Outpatient (CLI) | payer MEDICAID, SELFPAY | END 2020-10-03 15:29 | disposition home or self-care (01) | LOC: WOUND 15:32 | PROVIDERS: PCP Nurse Practitioner Family; Visit Provider Nurse Practitioner Family | DX: I87.2 Venous insufficiency (chronic) (peripheral) (principal); L97.822 Non-pressure chronic ulcer of other part of left lower leg with fat layer exposed | CPT/HCPCS: 11042; 11045 ==

== ENCOUNTER 2020-10-06 07:55 | Outpatient (CLI) | payer MEDICAID, SELFPAY | END 2020-10-06 07:56 | disposition home or self-care (01) | LOC: WOUND 07:56 | PROVIDERS: PCP Nurse Practitioner Family; Visit Provider Nurse Practitioner Family | DX: I87.2 Venous insufficiency (chronic) (peripheral) (principal); L97.822 Non-pressure chronic ulcer of other part of left lower leg with fat layer exposed | CPT/HCPCS: 29581 ==

== ENCOUNTER 2020-10-11 13:05 | Outpatient (CLI) | payer MEDICAID, SELFPAY | END 2020-10-11 13:06 | disposition home or self-care (01) | LOC: WOUND 13:06 | PROVIDERS: PCP Nurse Practitioner Family; Visit Provider Thoracic Surgery (Cardiothoracic Vascular Surgery) | DX: I87.2 Venous insufficiency (chronic) (peripheral) (principal); L97.822 Non-pressure chronic ulcer of other part of left lower leg with fat layer exposed | CPT/HCPCS: 11042; 11045 ==

== ENCOUNTER 2020-10-14 15:22 | Outpatient (CLI) | payer MEDICAID, SELFPAY | END 2020-10-14 15:23 | disposition home or self-care (01) | LOC: WOUND 15:23 | PROVIDERS: PCP Nurse Practitioner Family; Visit Provider Thoracic Surgery (Cardiothoracic Vascular Surgery) | DX: I87.2 Venous insufficiency (chronic) (peripheral) (principal); L97.822 Non-pressure chronic ulcer of other part of left lower leg with fat layer exposed | CPT/HCPCS: 29581 ==

== ENCOUNTER 2020-10-17 08:28 | Outpatient (CLI) | payer MEDICAID, SELFPAY | END 2020-10-17 08:29 | disposition home or self-care (01) | LOC: WOUND 08:29 | PROVIDERS: PCP Nurse Practitioner Family; Visit Provider Thoracic Surgery (Cardiothoracic Vascular Surgery) | DX: I87.2 Venous insufficiency (chronic) (peripheral) (principal); L97.822 Non-pressure chronic ulcer of other part of left lower leg with fat layer exposed | CPT/HCPCS: 11042; 11045 ==

== ENCOUNTER 2020-10-19 14:39 | Outpatient (CLI) | payer MEDICAID, SELFPAY | END 2020-10-19 14:40 | disposition home or self-care (01) | LOC: WOUND 14:39 | PROVIDERS: PCP Nurse Practitioner Family; Visit Provider Surgery | DX: I87.2 Venous insufficiency (chronic) (peripheral) (principal); L97.822 Non-pressure chronic ulcer of other part of left lower leg with fat layer exposed | CPT/HCPCS: 29581 ==

== ENCOUNTER 2020-10-21 15:20 | Outpatient (CLI) | payer MEDICAID, SELFPAY | END 2020-10-21 15:21 | disposition home or self-care (01) | LOC: WOUND 15:21 | PROVIDERS: PCP Nurse Practitioner Family; Visit Provider Surgery | DX: I87.2 Venous insufficiency (chronic) (peripheral) (principal); L97.822 Non-pressure chronic ulcer of other part of left lower leg with fat layer exposed | CPT/HCPCS: 29581 ==

== ENCOUNTER 2020-10-25 14:28 | Outpatient (CLI) | payer MEDICAID, SELFPAY | END 2020-10-25 14:29 | disposition home or self-care (01) | LOC: WOUND 14:29 | PROVIDERS: PCP Nurse Practitioner Family; Visit Provider Thoracic Surgery (Cardiothoracic Vascular Surgery) | DX: I87.2 Venous insufficiency (chronic) (peripheral) (principal); L97.822 Non-pressure chronic ulcer of other part of left lower leg with fat layer exposed | CPT/HCPCS: 11042; 11045 ==

== ENCOUNTER 2020-10-28 15:41 | Outpatient (CLI) | payer MEDICAID, SELFPAY | END 2020-10-28 15:42 | disposition home or self-care (01) | LOC: WOUND 15:42 | PROVIDERS: PCP Nurse Practitioner Family; Visit Provider Surgery | DX: I87.2 Venous insufficiency (chronic) (peripheral) (principal); L97.822 Non-pressure chronic ulcer of other part of left lower leg with fat layer exposed | CPT/HCPCS: 29581 ==

== ENCOUNTER 2020-11-01 14:28 | Outpatient (CLI) | payer MEDICAID, SELFPAY | END 2020-11-01 14:29 | disposition home or self-care (01) | LOC: WOUND 14:28 | PROVIDERS: PCP Nurse Practitioner Family; Visit Provider Nurse Practitioner Family | DX: I87.2 Venous insufficiency (chronic) (peripheral) (principal); L97.822 Non-pressure chronic ulcer of other part of left lower leg with fat layer exposed; L97.522 Non-pressure chronic ulcer of other part of left foot with fat layer exposed | CPT/HCPCS: 11042; 11045; 87070; 87077; 87176; 87186; 87205 ==

== ENCOUNTER 2020-11-08 13:39 | Outpatient (CLI) | payer MEDICAID, SELFPAY | END 2020-11-08 13:40 | disposition home or self-care (01) | LOC: WOUND 13:41 | PROVIDERS: PCP Nurse Practitioner Family; Visit Provider Thoracic Surgery (Cardiothoracic Vascular Surgery) | DX: I87.2 Venous insufficiency (chronic) (peripheral) (principal); L97.822 Non-pressure chronic ulcer of other part of left lower leg with fat layer exposed; Z87.891 Personal history of nicotine dependence | CPT/HCPCS: 11042; 11045 ==

== ENCOUNTER 2020-11-11 14:25 | Outpatient (CLI) | payer MEDICAID, SELFPAY | END 2020-11-11 14:26 | disposition home or self-care (01) | LOC: WOUND 14:25 | PROVIDERS: PCP Nurse Practitioner Family; Visit Provider Surgery | DX: I87.2 Venous insufficiency (chronic) (peripheral) (principal); L97.822 Non-pressure chronic ulcer of other part of left lower leg with fat layer exposed | CPT/HCPCS: 29581 ==

== ENCOUNTER 2020-11-15 11:14 | Outpatient (CLI) | payer MEDICAID, SELFPAY | END 2020-11-15 11:15 | disposition home or self-care (01) | LOC: WOUND 11:15 | PROVIDERS: PCP Nurse Practitioner Family; Visit Provider Emergency Medicine | DX: I87.2 Venous insufficiency (chronic) (peripheral) (principal); L97.822 Non-pressure chronic ulcer of other part of left lower leg with fat layer exposed; Z87.891 Personal history of nicotine dependence | CPT/HCPCS: 11042; 11045 ==

== ENCOUNTER 2020-11-22 13:42 | Outpatient (CLI) | payer MEDICAID, SELFPAY | END 2020-11-22 13:43 | disposition home or self-care (01) | LOC: WOUND 13:42 | PROVIDERS: PCP Nurse Practitioner Family; Visit Provider Thoracic Surgery (Cardiothoracic Vascular Surgery) | DX: I87.2 Venous insufficiency (chronic) (peripheral) (principal); L97.822 Non-pressure chronic ulcer of other part of left lower leg with fat layer exposed; Z87.891 Personal history of nicotine dependence | CPT/HCPCS: 11042; 11045 ==

== ENCOUNTER 2020-11-25 14:12 | Outpatient (CLI) | payer MEDICAID, SELFPAY | END 2020-11-25 14:13 | disposition home or self-care (01) | LOC: WOUND 14:14 | PROVIDERS: PCP Nurse Practitioner Family; Visit Provider Surgery | DX: I87.2 Venous insufficiency (chronic) (peripheral) (principal); L97.822 Non-pressure chronic ulcer of other part of left lower leg with fat layer exposed | CPT/HCPCS: 29581 ==

== ENCOUNTER 2020-11-28 13:40 | Outpatient (CLI) | payer MEDICAID, SELFPAY | END 2020-11-28 13:41 | disposition home or self-care (01) | LOC: WOUND 13:41 | PROVIDERS: PCP Nurse Practitioner Family; Visit Provider Thoracic Surgery (Cardiothoracic Vascular Surgery) | DX: I87.2 Venous insufficiency (chronic) (peripheral) (principal); L97.822 Non-pressure chronic ulcer of other part of left lower leg with fat layer exposed | CPT/HCPCS: 29581 ==

== ENCOUNTER 2020-11-30 13:44 | Outpatient (CLI) | payer MEDICAID, SELFPAY | END 2020-11-30 13:45 | disposition home or self-care (01) | LOC: WOUND 13:46 | PROVIDERS: PCP Nurse Practitioner Family; Visit Provider Nurse Practitioner Family | DX: I87.2 Venous insufficiency (chronic) (peripheral) (principal); L97.822 Non-pressure chronic ulcer of other part of left lower leg with fat layer exposed; Z87.891 Personal history of nicotine dependence | CPT/HCPCS: 11042; 11045 ==

== ENCOUNTER 2020-12-07 14:32 | Outpatient (CLI) | payer MEDICAID, SELFPAY | END 2020-12-07 14:33 | disposition home or self-care (01) | LOC: WOUND 14:32 | PROVIDERS: PCP Nurse Practitioner Family; Visit Provider Thoracic Surgery (Cardiothoracic Vascular Surgery) | DX: I87.2 Venous insufficiency (chronic) (peripheral) (principal); L97.822 Non-pressure chronic ulcer of other part of left lower leg with fat layer exposed; Z87.891 Personal history of nicotine dependence | CPT/HCPCS: 11042; 11045; 87070; 87077; 87176; 87186; 87205 ==

== ENCOUNTER 2020-12-14 13:43 | Outpatient (CLI) | payer MEDICAID, SELFPAY | END 2020-12-14 13:44 | disposition home or self-care (01) | LOC: WOUND 13:44 | PROVIDERS: PCP Nurse Practitioner Family; Visit Provider Thoracic Surgery (Cardiothoracic Vascular Surgery) | DX: I87.2 Venous insufficiency (chronic) (peripheral) (principal); L97.822 Non-pressure chronic ulcer of other part of left lower leg with fat layer exposed; Z87.891 Personal history of nicotine dependence | CPT/HCPCS: 11042; 11045 ==

== ENCOUNTER 2020-12-28 13:25 | Outpatient (CLI) | payer MEDICAID, SELFPAY | END 2020-12-28 13:26 | disposition home or self-care (01) | LOC: WOUND 13:25 | PROVIDERS: PCP Nurse Practitioner Family; Visit Provider Thoracic Surgery (Cardiothoracic Vascular Surgery) | DX: I87.2 Venous insufficiency (chronic) (peripheral) (principal); L97.822 Non-pressure chronic ulcer of other part of left lower leg with fat layer exposed; Z87.891 Personal history of nicotine dependence | CPT/HCPCS: 11042; 11045 ==

== ENCOUNTER 2021-01-04 13:25 | Outpatient (CLI) | payer MEDICAID, SELFPAY | END 2021-01-04 13:26 | disposition home or self-care (01) | LOC: WOUND 13:25 | PROVIDERS: PCP Nurse Practitioner Family; Visit Provider Thoracic Surgery (Cardiothoracic Vascular Surgery) | DX: I96 Gangrene, not elsewhere classified (principal); I87.2 Venous insufficiency (chronic) (peripheral); L97.822 Non-pressure chronic ulcer of other part of left lower leg with fat layer exposed; Z87.891 Personal history of nicotine dependence | CPT/HCPCS: 97597; 97598 ==

== ENCOUNTER 2021-01-11 13:04 | Outpatient (CLI) | payer MEDICAID, SELFPAY | END 2021-01-11 13:05 | disposition home or self-care (01) | LOC: WOUND 13:04 | PROVIDERS: PCP Nurse Practitioner Family; Visit Provider Thoracic Surgery (Cardiothoracic Vascular Surgery) | DX: I87.2 Venous insufficiency (chronic) (peripheral) (principal); L97.322 Non-pressure chronic ulcer of left ankle with fat layer exposed; Z87.891 Personal history of nicotine dependence | CPT/HCPCS: 11042; 11045 ==

== ENCOUNTER 2021-01-18 13:05 | Outpatient (CLI) | payer MEDICAID, SELFPAY | END 2021-01-18 13:06 | disposition home or self-care (01) | LOC: WOUND 13:05 | PROVIDERS: PCP Nurse Practitioner Family; Visit Provider Thoracic Surgery (Cardiothoracic Vascular Surgery) | DX: I87.2 Venous insufficiency (chronic) (peripheral) (principal); L97.822 Non-pressure chronic ulcer of other part of left lower leg with fat layer exposed; Z87.891 Personal history of nicotine dependence | CPT/HCPCS: 15271; 15272; A6250; Q4186 ==

== ENCOUNTER 2021-01-25 13:20 | Outpatient (CLI) | payer MEDICAID, SELFPAY | END 2021-01-25 13:21 | disposition home or self-care (01) | LOC: WOUND 13:21 | PROVIDERS: PCP Nurse Practitioner Family; Visit Provider Nurse Practitioner Family | DX: I87.2 Venous insufficiency (chronic) (peripheral) (principal); L97.822 Non-pressure chronic ulcer of other part of left lower leg with fat layer exposed; Z87.891 Personal history of nicotine dependence | CPT/HCPCS: 15271; 15272; A6250; A6253; Q4186 ==

== ENCOUNTER → 2021-01-31 16:17 | Outpatient (BNVA) | payer MEDICAID, SELFPAY | PROVIDERS: PCP Nurse Practitioner Family; Visit Provider Urology | DX: R39.15 Urgency of urination (principal) | CPT/HCPCS: 81003; 87086 ==

== ENCOUNTER 2021-02-01 13:09 | Outpatient (CLI) | payer MEDICAID, SELFPAY | END 2021-02-01 13:10 | disposition home or self-care (01) | LOC: WOUND 13:09 | PROVIDERS: PCP Nurse Practitioner Family; Visit Provider Thoracic Surgery (Cardiothoracic Vascular Surgery) | DX: I87.2 Venous insufficiency (chronic) (peripheral) (principal); L97.822 Non-pressure chronic ulcer of other part of left lower leg with fat layer exposed; Z87.891 Personal history of nicotine dependence | CPT/HCPCS: 15271; 15272; A6250; A6253; Q4186 ==

== ENCOUNTER 2021-02-08 13:14 | Outpatient (CLI) | payer MEDICAID, SELFPAY | END 2021-02-08 13:15 | disposition home or self-care (01) | LOC: WOUND 13:15 | PROVIDERS: PCP Nurse Practitioner Family; Visit Provider Thoracic Surgery (Cardiothoracic Vascular Surgery) | DX: I96 Gangrene, not elsewhere classified (principal); I87.2 Venous insufficiency (chronic) (peripheral); L97.822 Non-pressure chronic ulcer of other part of left lower leg with fat layer exposed; I10 Essential (primary) hypertension; Z87.891 Personal history of nicotine dependence | CPT/HCPCS: 97597; 97598; A6253 ==

== ENCOUNTER 2021-02-15 13:14 | Outpatient (CLI) | payer MEDICAID, SELFPAY | END 2021-02-15 13:15 | disposition home or self-care (01) | LOC: WOUND 13:15 | PROVIDERS: PCP Nurse Practitioner Family; Visit Provider Thoracic Surgery (Cardiothoracic Vascular Surgery) | DX: I87.2 Venous insufficiency (chronic) (peripheral) (principal); L97.822 Non-pressure chronic ulcer of other part of left lower leg with fat layer exposed; Z87.891 Personal history of nicotine dependence | CPT/HCPCS: 11042; 11045; A6253 ==

== ENCOUNTER 2021-02-22 13:05 | Outpatient (CLI) | payer MEDICAID, SELFPAY | END 2021-02-22 13:06 | disposition home or self-care (01) | LOC: WOUND 13:06 | PROVIDERS: PCP Nurse Practitioner Family; Visit Provider Nurse Practitioner Family | DX: I96 Gangrene, not elsewhere classified (principal); I87.2 Venous insufficiency (chronic) (peripheral); L97.822 Non-pressure chronic ulcer of other part of left lower leg with fat layer exposed; I10 Essential (primary) hypertension; Z87.891 Personal history of nicotine dependence | CPT/HCPCS: 11042; 11045; A6253 ==

== ENCOUNTER 2021-03-01 13:06 | Outpatient (CLI) | payer MEDICAID, SELFPAY | END 2021-03-01 13:07 | disposition home or self-care (01) | LOC: WOUND 13:06 | PROVIDERS: PCP Nurse Practitioner Family; Visit Provider Nurse Practitioner Family | DX: I87.2 Venous insufficiency (chronic) (peripheral) (principal); L97.822 Non-pressure chronic ulcer of other part of left lower leg with fat layer exposed; I10 Essential (primary) hypertension; Z87.891 Personal history of nicotine dependence | CPT/HCPCS: 11042; A6253 ==

== ENCOUNTER 2021-03-08 13:31 | Outpatient (CLI) | payer MEDICAID, SELFPAY | END 2021-03-08 13:32 | disposition home or self-care (01) | LOC: WOUND 13:32 | PROVIDERS: PCP Nurse Practitioner Family; Visit Provider Nurse Practitioner Family | DX: I87.2 Venous insufficiency (chronic) (peripheral) (principal); L97.822 Non-pressure chronic ulcer of other part of left lower leg with fat layer exposed; I10 Essential (primary) hypertension; Z87.891 Personal history of nicotine dependence | CPT/HCPCS: 11042 ==

== ENCOUNTER 2021-03-15 15:08 | Outpatient (CLI) | payer MEDICAID, SELFPAY | END 2021-03-15 15:09 | disposition home or self-care (01) | LOC: WOUND 15:09 | PROVIDERS: PCP Nurse Practitioner Family; Visit Provider Thoracic Surgery (Cardiothoracic Vascular Surgery) | DX: I96 Gangrene, not elsewhere classified (principal); I87.2 Venous insufficiency (chronic) (peripheral); L97.822 Non-pressure chronic ulcer of other part of left lower leg with fat layer exposed; Z87.891 Personal history of nicotine dependence | CPT/HCPCS: 11042; A6253 ==

== ENCOUNTER 2021-03-22 13:39 | Outpatient (CLI) | payer MEDICAID, SELFPAY | END 2021-03-22 13:40 | disposition home or self-care (01) | LOC: WOUND 13:40 | PROVIDERS: PCP Nurse Practitioner Family; Visit Provider Thoracic Surgery (Cardiothoracic Vascular Surgery) | DX: I87.2 Venous insufficiency (chronic) (peripheral) (principal); L97.822 Non-pressure chronic ulcer of other part of left lower leg with fat layer exposed; Z87.891 Personal history of nicotine dependence | CPT/HCPCS: 97597; 97598; A6253 ==

== ENCOUNTER 2021-03-29 13:29 | Outpatient (CLI) | payer MEDICAID, SELFPAY | END 2021-03-29 13:30 | disposition home or self-care (01) | LOC: WOUND 13:30 | PROVIDERS: PCP Nurse Practitioner Family; Visit Provider Nurse Practitioner Family | DX: I96 Gangrene, not elsewhere classified (principal); I87.2 Venous insufficiency (chronic) (peripheral); L97.822 Non-pressure chronic ulcer of other part of left lower leg with fat layer exposed; Z87.891 Personal history of nicotine dependence | CPT/HCPCS: 11042; 11045; A6252 ==

== ENCOUNTER 2021-04-05 13:19 | Outpatient (CLI) | payer MEDICAID, SELFPAY | END 2021-04-05 13:20 | disposition home or self-care (01) | LOC: WOUND 13:22 | PROVIDERS: PCP Nurse Practitioner Family; Visit Provider Nurse Practitioner Family | DX: I96 Gangrene, not elsewhere classified (principal); I87.2 Venous insufficiency (chronic) (peripheral); L97.822 Non-pressure chronic ulcer of other part of left lower leg with fat layer exposed; Z87.891 Personal history of nicotine dependence | CPT/HCPCS: 11042; 11045; A6252 ==

== ENCOUNTER 2021-04-19 13:22 | Outpatient (CLI) | payer MEDICAID, SELFPAY | END 2021-04-19 13:23 | disposition home or self-care (01) | LOC: WOUND 13:22 | PROVIDERS: PCP Nurse Practitioner Family; Visit Provider Thoracic Surgery (Cardiothoracic Vascular Surgery) | DX: I96 Gangrene, not elsewhere classified (principal); I87.2 Venous insufficiency (chronic) (peripheral); L97.822 Non-pressure chronic ulcer of other part of left lower leg with fat layer exposed; Z87.891 Personal history of nicotine dependence | CPT/HCPCS: 97597; A6253 ==

== ENCOUNTER 2021-04-26 13:29 | Outpatient (CLI) | payer MEDICAID, SELFPAY | END 2021-04-26 13:30 | disposition home or self-care (01) | LOC: WOUND 13:29 | PROVIDERS: PCP Nurse Practitioner Family; Visit Provider Nurse Practitioner Family | DX: I96 Gangrene, not elsewhere classified (principal); I87.2 Venous insufficiency (chronic) (peripheral); L97.822 Non-pressure chronic ulcer of other part of left lower leg with fat layer exposed; Z87.891 Personal history of nicotine dependence | CPT/HCPCS: 11042; A6253 ==

== ENCOUNTER 2021-05-03 14:15 | Outpatient (CLI) | payer MEDICAID, SELFPAY | END 2021-05-03 14:16 | disposition home or self-care (01) | LOC: WOUND 14:16 | PROVIDERS: PCP Nurse Practitioner Family; Visit Provider Thoracic Surgery (Cardiothoracic Vascular Surgery) | DX: I96 Gangrene, not elsewhere classified (principal); I87.2 Venous insufficiency (chronic) (peripheral); L97.822 Non-pressure chronic ulcer of other part of left lower leg with fat layer exposed; Z87.891 Personal history of nicotine dependence | CPT/HCPCS: 97597; A6252 ==

== ENCOUNTER → 2021-05-09 16:10 | Outpatient (BNVA) | payer MEDICAID, SELFPAY | PROVIDERS: PCP Nurse Practitioner Family; Visit Provider Urology | DX: R39.15 Urgency of urination (principal); R33.9 Retention of urine, unspecified | CPT/HCPCS: 81003 ==

== ENCOUNTER 2021-05-10 11:07 | Outpatient (CLI) | payer MEDICAID, SELFPAY | END 2021-05-10 11:08 | disposition home or self-care (01) | LOC: WOUND 11:08 | PROVIDERS: PCP Nurse Practitioner Family; Visit Provider Thoracic Surgery (Cardiothoracic Vascular Surgery) | DX: I96 Gangrene, not elsewhere classified (principal); I87.2 Venous insufficiency (chronic) (peripheral); L97.822 Non-pressure chronic ulcer of other part of left lower leg with fat layer exposed; Z87.891 Personal history of nicotine dependence | CPT/HCPCS: 29581; 97597; A6253 ==

== ENCOUNTER 2021-05-17 15:02 | Outpatient (CLI) | payer MEDICAID, SELFPAY | END 2021-05-17 15:03 | disposition home or self-care (01) | LOC: WOUND 15:03 | PROVIDERS: PCP Nurse Practitioner Family; Visit Provider Thoracic Surgery (Cardiothoracic Vascular Surgery) | DX: I96 Gangrene, not elsewhere classified (principal); I87.2 Venous insufficiency (chronic) (peripheral); L97.822 Non-pressure chronic ulcer of other part of left lower leg with fat layer exposed; Z87.891 Personal history of nicotine dependence | CPT/HCPCS: 97597 ==

== ENCOUNTER 2021-05-31 11:01 | Outpatient (CLI) | payer MEDICAID, SELFPAY | END 2021-05-31 11:02 | disposition home or self-care (01) | LOC: WOUND 11:02 | PROVIDERS: PCP Nurse Practitioner Family; Visit Provider Thoracic Surgery (Cardiothoracic Vascular Surgery) | DX: I96 Gangrene, not elsewhere classified (principal); I87.2 Venous insufficiency (chronic) (peripheral); L97.822 Non-pressure chronic ulcer of other part of left lower leg with fat layer exposed; Z87.891 Personal history of nicotine dependence | CPT/HCPCS: 97597; A6252 ==

== ENCOUNTER 2021-06-07 13:40 | Outpatient (CLI) | payer MEDICAID, SELFPAY | END 2021-06-07 13:41 | disposition home or self-care (01) | LOC: WOUND 13:40 | PROVIDERS: PCP Nurse Practitioner Family; Visit Provider Thoracic Surgery (Cardiothoracic Vascular Surgery) | DX: I96 Gangrene, not elsewhere classified (principal); L97.822 Non-pressure chronic ulcer of other part of left lower leg with fat layer exposed; I87.2 Venous insufficiency (chronic) (peripheral); Z87.891 Personal history of nicotine dependence | CPT/HCPCS: 97597; A6252 ==

== ENCOUNTER 2021-06-14 14:36 | Outpatient (CLI) | payer MEDICAID, SELFPAY | END 2021-06-14 14:37 | disposition home or self-care (01) | LOC: WOUND 14:36 | PROVIDERS: PCP Nurse Practitioner Family; Visit Provider Thoracic Surgery (Cardiothoracic Vascular Surgery) | DX: I87.2 Venous insufficiency (chronic) (peripheral) (principal); I96 Gangrene, not elsewhere classified; L97.822 Non-pressure chronic ulcer of other part of left lower leg with fat layer exposed; Z87.891 Personal history of nicotine dependence | CPT/HCPCS: 97597; A6251 ==

== ENCOUNTER 2021-06-21 14:35 | Outpatient (CLI) | payer MEDICAID, SELFPAY | END 2021-06-21 14:36 | disposition home or self-care (01) | LOC: WOUND 14:36 | PROVIDERS: PCP Nurse Practitioner Family; Visit Provider Thoracic Surgery (Cardiothoracic Vascular Surgery) | DX: I87.2 Venous insufficiency (chronic) (peripheral) (principal); L97.822 Non-pressure chronic ulcer of other part of left lower leg with fat layer exposed; I96 Gangrene, not elsewhere classified; Z87.891 Personal history of nicotine dependence | CPT/HCPCS: 97597 ==

== ENCOUNTER → 2021-06-28 15:26 | Outpatient (BNVA) | payer MEDICAID, SELFPAY | PROVIDERS: PCP Nurse Practitioner Family; Visit Provider Thoracic Surgery (Cardiothoracic Vascular Surgery) | DX: I87.2 Venous insufficiency (chronic) (peripheral) (principal); I96 Gangrene, not elsewhere classified; L97.822 Non-pressure chronic ulcer of other part of left lower leg with fat layer exposed; Z87.891 Personal history of nicotine dependence | CPT/HCPCS: 97597; A6252 ==

== ENCOUNTER → 2021-07-03 13:00 | Outpatient (BNVA) | payer MEDICAID, SELFPAY | PROVIDERS: PCP Nurse Practitioner Family; Visit Provider Nurse Practitioner Family | DX: I87.2 Venous insufficiency (chronic) (peripheral) (principal); I96 Gangrene, not elsewhere classified; L97.822 Non-pressure chronic ulcer of other part of left lower leg with fat layer exposed; Z87.891 Personal history of nicotine dependence | CPT/HCPCS: 11042; A6252 ==

== ENCOUNTER → 2021-07-10 10:12 | Outpatient (BNVA) | payer MEDICAID, SELFPAY | PROVIDERS: PCP Nurse Practitioner Family; Visit Provider Thoracic Surgery (Cardiothoracic Vascular Surgery) | DX: I87.2 Venous insufficiency (chronic) (peripheral) (principal); I96 Gangrene, not elsewhere classified; L97.822 Non-pressure chronic ulcer of other part of left lower leg with fat layer exposed; Z87.891 Personal history of nicotine dependence | CPT/HCPCS: 15271; 29581; A6250; A6252; Q4186 ==

== ENCOUNTER → 2021-07-17 14:07 | Outpatient (BNVA) | payer MEDICAID, SELFPAY | PROVIDERS: PCP Nurse Practitioner Family; Visit Provider Thoracic Surgery (Cardiothoracic Vascular Surgery) | DX: I96 Gangrene, not elsewhere classified (principal); L97.822 Non-pressure chronic ulcer of other part of left lower leg with fat layer exposed; Z87.891 Personal history of nicotine dependence; I87.2 Venous insufficiency (chronic) (peripheral) | CPT/HCPCS: 15271; A6250; A6251; Q4186 ==

== ENCOUNTER → 2021-07-24 15:28 | Outpatient (BNVA) | payer MEDICAID, SELFPAY | PROVIDERS: PCP Nurse Practitioner Family; Visit Provider Thoracic Surgery (Cardiothoracic Vascular Surgery) | DX: I87.2 Venous insufficiency (chronic) (peripheral) (principal); I96 Gangrene, not elsewhere classified; L97.822 Non-pressure chronic ulcer of other part of left lower leg with fat layer exposed; Z87.891 Personal history of nicotine dependence | CPT/HCPCS: 15275; A6252; Q4186 ==

== ENCOUNTER → 2021-07-31 15:08 | Outpatient (BNVA) | payer MEDICAID, SELFPAY | PROVIDERS: PCP Nurse Practitioner Family; Visit Provider Thoracic Surgery (Cardiothoracic Vascular Surgery) | DX: I87.2 Venous insufficiency (chronic) (peripheral) (principal); L97.822 Non-pressure chronic ulcer of other part of left lower leg with fat layer exposed; I96 Gangrene, not elsewhere classified; Z87.891 Personal history of nicotine dependence | CPT/HCPCS: 97597; A6252 ==

== ENCOUNTER → 2021-08-07 15:34 | Outpatient (BNVA) | payer MEDICAID, SELFPAY | PROVIDERS: PCP Nurse Practitioner Family; Visit Provider Thoracic Surgery (Cardiothoracic Vascular Surgery) | DX: I87.2 Venous insufficiency (chronic) (peripheral) (principal); Z87.891 Personal history of nicotine dependence; L97.822 Non-pressure chronic ulcer of other part of left lower leg with fat layer exposed; I96 Gangrene, not elsewhere classified | CPT/HCPCS: 97597 ==

== ENCOUNTER → 2021-08-14 15:15 | Outpatient (BNVA) | payer MEDICAID, SELFPAY | PROVIDERS: PCP Nurse Practitioner Family; Visit Provider Thoracic Surgery (Cardiothoracic Vascular Surgery) | DX: I87.2 Venous insufficiency (chronic) (peripheral) (principal); L97.822 Non-pressure chronic ulcer of other part of left lower leg with fat layer exposed; I96 Gangrene, not elsewhere classified | CPT/HCPCS: 97597; A6252 ==

== ENCOUNTER → 2021-08-21 15:26 | Outpatient (BNVA) | payer MEDICAID, SELFPAY | PROVIDERS: PCP Nurse Practitioner Family; Visit Provider Thoracic Surgery (Cardiothoracic Vascular Surgery) | DX: I87.2 Venous insufficiency (chronic) (peripheral) (principal); L97.822 Non-pressure chronic ulcer of other part of left lower leg with fat layer exposed; I96 Gangrene, not elsewhere classified | CPT/HCPCS: 97597; A6252 ==

== ENCOUNTER → 2021-08-28 15:24 | Outpatient (BNVA) | payer MEDICAID, SELFPAY | PROVIDERS: PCP Nurse Practitioner Family; Visit Provider Thoracic Surgery (Cardiothoracic Vascular Surgery) | DX: I87.2 Venous insufficiency (chronic) (peripheral) (principal); L97.822 Non-pressure chronic ulcer of other part of left lower leg with fat layer exposed; I96 Gangrene, not elsewhere classified | CPT/HCPCS: 97597; A6252 ==

== ENCOUNTER → 2021-09-05 14:27 | Outpatient (BNVA) | payer MEDICAID, SELFPAY | PROVIDERS: PCP Nurse Practitioner Family; Visit Provider Nurse Practitioner Family | DX: I87.2 Venous insufficiency (chronic) (peripheral) (principal); L97.822 Non-pressure chronic ulcer of other part of left lower leg with fat layer exposed; I96 Gangrene, not elsewhere classified | CPT/HCPCS: 11042 ==

== ENCOUNTER → 2021-09-11 14:22 | Outpatient (BNVA) | payer MEDICAID, SELFPAY | PROVIDERS: PCP Nurse Practitioner Family; Visit Provider Thoracic Surgery (Cardiothoracic Vascular Surgery) | DX: I87.2 Venous insufficiency (chronic) (peripheral) (principal); L97.822 Non-pressure chronic ulcer of other part of left lower leg with fat layer exposed; I96 Gangrene, not elsewhere classified | CPT/HCPCS: 97597; A6252 ==

== ENCOUNTER → 2021-09-18 13:38 | Outpatient (BNVA) | payer MEDICAID, SELFPAY | PROVIDERS: PCP Nurse Practitioner Family; Visit Provider Thoracic Surgery (Cardiothoracic Vascular Surgery) | DX: I87.2 Venous insufficiency (chronic) (peripheral) (principal); L97.822 Non-pressure chronic ulcer of other part of left lower leg with fat layer exposed; I96 Gangrene, not elsewhere classified | CPT/HCPCS: 97597 ==

== ENCOUNTER → 2021-09-25 14:00 | Outpatient (BNVA) | payer MEDICAID, SELFPAY | PROVIDERS: PCP Nurse Practitioner Family; Visit Provider Nurse Practitioner Family | DX: I87.2 Venous insufficiency (chronic) (peripheral) (principal); L97.822 Non-pressure chronic ulcer of other part of left lower leg with fat layer exposed; I96 Gangrene, not elsewhere classified | CPT/HCPCS: 11042; 29581; A6252 ==

== ENCOUNTER → 2021-10-02 15:08 | Outpatient (BNVA) | payer MEDICAID, SELFPAY | PROVIDERS: PCP Nurse Practitioner Family; Visit Provider Thoracic Surgery (Cardiothoracic Vascular Surgery) | DX: I96 Gangrene, not elsewhere classified (principal); I87.2 Venous insufficiency (chronic) (peripheral); L97.822 Non-pressure chronic ulcer of other part of left lower leg with fat layer exposed | CPT/HCPCS: 97597; A6252 ==

== ENCOUNTER → 2021-10-18 10:42 | Outpatient (BNVA) | payer MEDICAID, SELFPAY | PROVIDERS: PCP Nurse Practitioner Family; Visit Provider Thoracic Surgery (Cardiothoracic Vascular Surgery) | DX: I87.2 Venous insufficiency (chronic) (peripheral) (principal); L97.822 Non-pressure chronic ulcer of other part of left lower leg with fat layer exposed; I96 Gangrene, not elsewhere classified | CPT/HCPCS: 97597; 97598; A6252 ==

== ENCOUNTER 2021-10-19 08:26 | Outpatient (CLI) | payer MEDICAID, SELFPAY ==
--- NOTE | 2021-10-19 09:30 | USCV_ITS ---
Jose Weldon Age: 76 Gender: M : 1945 Exam Date: 10/19/2021 08:45 Ordering Phys: Nikolas Harris MD (Andy) ([email or web address]) Technologist: Luis Mast Exam Location: [facility] [place] Indication: PAIN IN LEFT LEG PROCEDURES: Venous duplex imaging was performed in only the left lower extremity. The following venous structures were evaluated: common femoral vein, profunda vein, proximal portion of the greater saphenous vein, superficial femoral vein, and the popliteal vein. In addition, the posterior tibial and peroneal trunk were evaluated. Serial compression, augmentation maneuvers, and spectral Doppler flow evaluation were performed. FINDINGS: Normal 2-D Doppler and augmentation and compressibility throughout the lower extremity venous structures. Additional imaging through the proximal calf veins also reveals no thrombus. Limited evaluation of the greater saphenous vein is patent with no thrombus. CONCLUSIONS No DVT left lower extremity. Dr. Elida Ruiz DO (Electronically Signed) Final Date: 19 October 2021 09:51 S
== END 2021-10-19 08:27 | disposition home or self-care (01) ==
PROVIDERS: PCP Nurse Practitioner Family; Visit Provider Thoracic Surgery (Cardiothoracic Vascular Surgery)
DX: M79.605 Pain in left leg (principal)
CPT/HCPCS: 93971

== ENCOUNTER → 2021-10-23 13:18 | Outpatient (BNVA) | payer MEDICAID, SELFPAY | PROVIDERS: PCP Nurse Practitioner Family; Visit Provider Thoracic Surgery (Cardiothoracic Vascular Surgery) | DX: I87.2 Venous insufficiency (chronic) (peripheral) (principal); L97.822 Non-pressure chronic ulcer of other part of left lower leg with fat layer exposed; I96 Gangrene, not elsewhere classified | CPT/HCPCS: 11042; 11045; A6252 ==

== ENCOUNTER → 2021-10-30 14:07 | Outpatient (BNVA) | payer MEDICAID, SELFPAY | PROVIDERS: PCP Nurse Practitioner Family; Visit Provider Thoracic Surgery (Cardiothoracic Vascular Surgery) | DX: I87.2 Venous insufficiency (chronic) (peripheral) (principal); L97.822 Non-pressure chronic ulcer of other part of left lower leg with fat layer exposed; I96 Gangrene, not elsewhere classified | CPT/HCPCS: 97597; 97598; A6252 ==

== ENCOUNTER → 2021-11-06 13:35 | Outpatient (BNVA) | payer MEDICAID, SELFPAY | PROVIDERS: PCP Nurse Practitioner Family; Visit Provider Nurse Practitioner Family | DX: I87.2 Venous insufficiency (chronic) (peripheral) (principal); L97.822 Non-pressure chronic ulcer of other part of left lower leg with fat layer exposed | CPT/HCPCS: 11042; 11045; 87070; 87077; 87176; 87186; 87205; A6252 ==

== ENCOUNTER → 2021-11-13 14:22 | Outpatient (BNVA) | payer MEDICAID, SELFPAY | PROVIDERS: PCP Nurse Practitioner Family; Visit Provider Thoracic Surgery (Cardiothoracic Vascular Surgery) | DX: I87.2 Venous insufficiency (chronic) (peripheral) (principal); L97.822 Non-pressure chronic ulcer of other part of left lower leg with fat layer exposed; I96 Gangrene, not elsewhere classified | CPT/HCPCS: 11042; 11045; A6252 ==

== ENCOUNTER → 2021-11-17 13:56 | Outpatient (BNVA) | payer MEDICAID, SELFPAY | PROVIDERS: PCP Nurse Practitioner Family; Visit Provider Surgery | DX: I87.2 Venous insufficiency (chronic) (peripheral) (principal); L97.822 Non-pressure chronic ulcer of other part of left lower leg with fat layer exposed | CPT/HCPCS: 29581; A6252 ==

== ENCOUNTER → 2021-11-20 13:58 | Outpatient (BNVA) | payer MEDICAID, SELFPAY | PROVIDERS: PCP Nurse Practitioner Family; Visit Provider Thoracic Surgery (Cardiothoracic Vascular Surgery) | DX: I96 Gangrene, not elsewhere classified (principal); I87.2 Venous insufficiency (chronic) (peripheral); L97.822 Non-pressure chronic ulcer of other part of left lower leg with fat layer exposed | CPT/HCPCS: 97597; 97598; A6252 ==

== ENCOUNTER → 2021-11-24 10:21 | Outpatient (BNVA) | payer MEDICAID, SELFPAY | PROVIDERS: PCP Nurse Practitioner Family; Visit Provider Nurse Practitioner Family | DX: I87.2 Venous insufficiency (chronic) (peripheral) (principal); L97.822 Non-pressure chronic ulcer of other part of left lower leg with fat layer exposed | CPT/HCPCS: 29581; A6252 ==

== ENCOUNTER → 2021-11-27 13:26 | Outpatient (BNVA) | payer MEDICAID, SELFPAY | PROVIDERS: PCP Nurse Practitioner Family; Visit Provider Thoracic Surgery (Cardiothoracic Vascular Surgery) | DX: I87.2 Venous insufficiency (chronic) (peripheral) (principal); L97.822 Non-pressure chronic ulcer of other part of left lower leg with fat layer exposed; I96 Gangrene, not elsewhere classified | CPT/HCPCS: 97597; 97598; A6252 ==

== ENCOUNTER → 2021-12-01 15:24 | Outpatient (BNVA) | payer MEDICAID, SELFPAY | PROVIDERS: PCP Nurse Practitioner Family; Visit Provider Surgery | DX: I87.2 Venous insufficiency (chronic) (peripheral) (principal); L97.822 Non-pressure chronic ulcer of other part of left lower leg with fat layer exposed | CPT/HCPCS: 29581; A6210; A6252 ==

== ENCOUNTER → 2021-12-04 14:03 | Outpatient (BNVA) | payer MEDICAID, SELFPAY | PROVIDERS: PCP Nurse Practitioner Family; Visit Provider Thoracic Surgery (Cardiothoracic Vascular Surgery) | DX: I87.2 Venous insufficiency (chronic) (peripheral) (principal); L97.822 Non-pressure chronic ulcer of other part of left lower leg with fat layer exposed; I96 Gangrene, not elsewhere classified | CPT/HCPCS: 97597; 97598; A6252 ==

== ENCOUNTER → 2021-12-08 14:22 | Outpatient (BNVA) | payer MEDICAID, SELFPAY | PROVIDERS: PCP Nurse Practitioner Family; Visit Provider Surgery | DX: I87.2 Venous insufficiency (chronic) (peripheral) (principal); L97.822 Non-pressure chronic ulcer of other part of left lower leg with fat layer exposed; I96 Gangrene, not elsewhere classified | CPT/HCPCS: 11042; 11045 ==

== ENCOUNTER → 2021-12-12 14:00 | Outpatient (BNVA) | payer MEDICAID, SELFPAY | PROVIDERS: PCP Nurse Practitioner Family; Visit Provider Nurse Practitioner Family | DX: I87.2 Venous insufficiency (chronic) (peripheral) (principal); L97.822 Non-pressure chronic ulcer of other part of left lower leg with fat layer exposed; I96 Gangrene, not elsewhere classified | CPT/HCPCS: 11042; 11045; 87070; 87077; 87176; 87186; 87205; A6253 ==

== ENCOUNTER → 2021-12-14 13:37 | Outpatient (BNVA) | payer MEDICAID, SELFPAY | PROVIDERS: PCP Nurse Practitioner Family; Visit Provider Nurse Practitioner Family | DX: I87.2 Venous insufficiency (chronic) (peripheral) (principal); L97.822 Non-pressure chronic ulcer of other part of left lower leg with fat layer exposed | CPT/HCPCS: 29581; A6210; A6252 ==

== ENCOUNTER → 2021-12-18 13:57 | Outpatient (BNVA) | payer MEDICAID, SELFPAY | PROVIDERS: PCP Nurse Practitioner Family; Visit Provider Nurse Practitioner Family | DX: I96 Gangrene, not elsewhere classified (principal); I87.2 Venous insufficiency (chronic) (peripheral); L97.822 Non-pressure chronic ulcer of other part of left lower leg with fat layer exposed | CPT/HCPCS: 11042; 11045 ==

== ENCOUNTER → 2021-12-25 13:12 | Outpatient (BNVA) | payer MEDICAID, SELFPAY | PROVIDERS: PCP Nurse Practitioner Family; Visit Provider Nurse Practitioner Family | DX: I96 Gangrene, not elsewhere classified (principal); I87.2 Venous insufficiency (chronic) (peripheral); L97.822 Non-pressure chronic ulcer of other part of left lower leg with fat layer exposed | CPT/HCPCS: 11042; 11045; A6252 ==

== ENCOUNTER → 2022-01-01 14:17 | Outpatient (BNVA) | payer MEDICAID, SELFPAY | PROVIDERS: PCP Nurse Practitioner Family; Visit Provider Thoracic Surgery (Cardiothoracic Vascular Surgery) | DX: I96 Gangrene, not elsewhere classified (principal); I87.2 Venous insufficiency (chronic) (peripheral); L97.822 Non-pressure chronic ulcer of other part of left lower leg with fat layer exposed | CPT/HCPCS: 11042; 11045 ==

== ENCOUNTER → 2022-01-04 15:17 | Outpatient (BNVA) | payer MEDICAID, SELFPAY | PROVIDERS: PCP Nurse Practitioner Family; Visit Provider Surgery | DX: K43.9 Ventral hernia without obstruction or gangrene (principal); R59.9 Enlarged lymph nodes, unspecified; R19.09 Other intra-abdominal and pelvic swelling, mass and lump | CPT/HCPCS: 99213 ==

== ENCOUNTER → 2022-01-08 15:04 | Outpatient (BNVA) | payer MEDICAID, SELFPAY | PROVIDERS: PCP Nurse Practitioner Family; Visit Provider Thoracic Surgery (Cardiothoracic Vascular Surgery) | DX: I96 Gangrene, not elsewhere classified (principal); I87.2 Venous insufficiency (chronic) (peripheral); L97.822 Non-pressure chronic ulcer of other part of left lower leg with fat layer exposed | CPT/HCPCS: 11042; 11045; A6252 ==

== ENCOUNTER → 2022-01-22 13:33 | Outpatient (BNVA) | payer MEDICAID, SELFPAY | PROVIDERS: PCP Nurse Practitioner Family; Visit Provider Thoracic Surgery (Cardiothoracic Vascular Surgery) | DX: I96 Gangrene, not elsewhere classified (principal); I87.2 Venous insufficiency (chronic) (peripheral); L97.822 Non-pressure chronic ulcer of other part of left lower leg with fat layer exposed | CPT/HCPCS: 11042; 11045; A6253 ==

== ENCOUNTER → 2022-01-26 14:19 | Outpatient (BNVA) | payer MEDICAID, SELFPAY | PROVIDERS: PCP Nurse Practitioner Family; Visit Provider Nurse Practitioner Family | DX: I96 Gangrene, not elsewhere classified (principal); I87.2 Venous insufficiency (chronic) (peripheral); L97.822 Non-pressure chronic ulcer of other part of left lower leg with fat layer exposed | CPT/HCPCS: 29581; A6252 ==

== ENCOUNTER 2022-01-29 11:06 | Outpatient (CLI) | payer MEDICAID, SELFPAY ==
[2022-01-29 12:29] LABS: Blood Urea Nitrogen 14 mg/dL (8-23)
--- NOTE | 2022-01-29 12:30 | CT_ITS ---
WS: [id number] CT ABDOMEN AND PELVIS WITH CONTRAST HISTORY: ventral abdominal hernia left groin TECHNIQUE: Imaging performed of the abdomen and pelvis with IV contrast. Single phase imaging of the abdomen. Coronal and sagittal reformats are submitted. All CT scans at [facility] use at [address] one of these dose optimization techniques: automated exposure control; mA and/or kV adjustment per patient size (includes targeted exams where dose is matched to clinical indication); or iterative re construction. IV CONTRAST: Omnipaque 350; 95 mL IV. Oral contrast: Yes. DLP: 835.03 mGy.cm COMPARISON: 04/17/2020 Lower thorax: Significant breathing motion artifact at the lung bases. 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 No hiatal hernia. Liver/biliary system: Normal size with no intrahepatic dilatation. Gallbladder: Normal. No gallstones or wall thickening. No pericholecystic fluid. Pancreas: Mild pancreatic atrophy. Pancreatic duct does not appear dilated. Spleen: Pancreatic head is difficult to visualize without oral contrast outlining the duodenum but it appears similar configuration to the prior study. Adrenal glands: Normal. Right kidney: Multiple too small to characterize hypodensities scattered throughout the cortex. The l arger hypodensities were present on the prior study. No solid mass or obstruction. Left kidney: Normal size kidney with several cortical hypodensities. No obstruction. Aorta: Mild atherosclerosis with no aneurysm. Lymphadenopathy: Small LEFT iliac chain lymph nodes. Larger lymph nodes in the LEFT inguinal region. The largest lymph node measures up to 2.0 cm. The inguinal lymph node measures 1.4 cm. Very small RIG HT inguinal lymph nodes. Free fluid: None. GI tract: Nondistended stomach. No small bowel obstruction. Diffuse fecal retention and constipation. Abdominal wall: Thinning of the anterior abdominal wall but no hernia identified. Pelvis: Prostate gland is enlarged encroaching into the urinary bladder. There is mild heterogeneity in enhancement within the prostate. Diffuse bladder wall thickening measuring up to 7 mm. Bladder div erticulum on the RIGHT measures 5.0 x 2.4 cm. The previously described calculi within the diverticulu m is not evident today. There is a calcification near the prosthetic urethra which may be the calcifi cation that was previously seen in the bladder diverticulum. This calcification measures 5 mm. Bones: Degenerative disc disease. Deformity and flattening of the RIGHT femoral head. CT/CT abdomen pelvis w con* [id number] IMPRESSION: 1. Mildly prominent but indeterminate LEFT inguinal lymph nodes measuring up t o 2.0 cm. These could be reactive. 2. Marked enlargement of the prostate gland encroaching into the bladder and b ladder wall hypertrophy. Bladder wall hypertrophy due to chronic outlet obstruc tion. 3. RIGHT lateral bladder diverticulum. Previously described calcification with in the bladder diverticulum is no longer present. There is a new calcification in the base of the bladder near the prostatic urethra measuring 5 mm. This may be the same calcification which has changed locations. 4. No ascites. 5. Atherosclerosis aorta. 6. No abdominal wall hernia.
== END 2022-01-29 11:07 | disposition home or self-care (01) ==
LOC: RAD 11:08
PROVIDERS: PCP Nurse Practitioner Family; Visit Provider Surgery
DX: K43.9 Ventral hernia without obstruction or gangrene (principal); R59.9 Enlarged lymph nodes, unspecified; I25.10 Atherosclerotic heart disease of native coronary artery without angina pectoris; I96 Gangrene, not elsewhere classified; L97.822 Non-pressure chronic ulcer of other part of left lower leg with fat layer exposed; I87.2 Venous insufficiency (chronic) (peripheral)
CPT/HCPCS: 11042; 11045; 74177; 82565; 84520; A6253; Q9967

== ENCOUNTER → 2022-02-05 13:24 | Outpatient (BNVA) | payer MEDICAID, SELFPAY | PROVIDERS: PCP Nurse Practitioner Family; Visit Provider Thoracic Surgery (Cardiothoracic Vascular Surgery) | DX: I96 Gangrene, not elsewhere classified (principal); I87.2 Venous insufficiency (chronic) (peripheral); L97.822 Non-pressure chronic ulcer of other part of left lower leg with fat layer exposed | CPT/HCPCS: 11043; 11046 ==

== ENCOUNTER → 2022-02-12 14:12 | Outpatient (BNVA) | payer MEDICAID, SELFPAY | PROVIDERS: PCP Nurse Practitioner Family; Visit Provider Thoracic Surgery (Cardiothoracic Vascular Surgery) | DX: I96 Gangrene, not elsewhere classified (principal); I87.2 Venous insufficiency (chronic) (peripheral); L97.822 Non-pressure chronic ulcer of other part of left lower leg with fat layer exposed; Z09 Encounter for follow-up examination after completed treatment for conditions other than malignant neoplasm; R19.09 Other intra-abdominal and pelvic swelling, mass and lump | CPT/HCPCS: 11042; 11045; 99212; A6252 ==

== ENCOUNTER 2022-02-14 15:00 | Outpatient (CLI) | payer MEDICAID, SELFPAY ==
[2022-02-14 15:06] LABS: Basophils # 0.1 10^3/uL (0.0-0.1); Eosinophils # 0.2 10^3/uL (0.0-0.8); Eosinophils % 3.6 %; Hematocrit 40.3 % (42.0-52.0); Lymphocytes # 1.3 10^3/uL (0.8-4.8); Lymphocytes % 22.3 %; Mean Corpuscular HGB Conc 32.3 g/dL (30.0-36.0); Mean Corpuscular Hemoglobin 30.6 pg (28.0-34.0); Mean Corpuscular Volume 94.8 fl (80-94); Mean Platelet Volume 10.7 fL (7.4-10.4); Monocytes # 0.7 10^3/uL (0.2-0.9); Monocytes % 12.3 %; Neutrophils # 3.49 10^3/uL (1.8-7.7); Neutrophils % 60.5 %; Nucleated Red Blood Cells % 0 %; Platelet Count 312 10^3/cmm (130-400); Red Blood Count 4.25 10^6/uL (4.1-5.3); Red Cell Distribution Width 13.7 % (12.1-15.1); White Blood Count 5.8 10^3/uL (4.0-10.0)
[2022-02-14 15:07] LABS: Erythrocyte Sedimentation Rate 35 mm/hr (0-10)
[2022-02-14 15:40] LABS: Alanine Aminotransferase 11 U/L (0-41); Albumin Level 3.6 g/dL (3.5-5.2); Alkaline Phosphatase 144 U/L (40-130); Anion Gap 17.8 (5-19); Aspartate Amino Transferase 16 U/L (0-40); Blood Urea Nitrogen 13 mg/dL (8-23); C Reactive Protein 25.7 mg/L (0.0-4.9); Carbon Dioxide 26 mmol/L (22-29); Chloride 102 mmol/L (98-107); Globulin 3.6 g/dL (1.3-4.6); Glucose 78 mg/dL (65-115); Osmolality Calculated 293 mOsm/kg (285-295); Potassium 3.8 mmol/L (3.5-5.1); Sodium 142 mmol/L (136-145); Total Bilirubin 0.6 mg/dL (0.15-1.2); Total Protein 7.2 g/dL (6.6-8.7)
== END 2022-02-14 15:01 | disposition home or self-care (01) ==
LOC: LAB 15:01
PROVIDERS: PCP Nurse Practitioner Family; Visit Provider Thoracic Surgery (Cardiothoracic Vascular Surgery)
DX: N40.0 Benign prostatic hyperplasia without lower urinary tract symptoms (principal); L97.822 Non-pressure chronic ulcer of other part of left lower leg with fat layer exposed
CPT/HCPCS: 80053; 84153; 85025; 85651; 86140

== ENCOUNTER → 2022-02-19 13:56 | Outpatient (BNVA) | payer MEDICAID, SELFPAY | PROVIDERS: PCP Nurse Practitioner Family; Visit Provider Thoracic Surgery (Cardiothoracic Vascular Surgery) | DX: I96 Gangrene, not elsewhere classified (principal); I87.2 Venous insufficiency (chronic) (peripheral); L97.822 Non-pressure chronic ulcer of other part of left lower leg with fat layer exposed | CPT/HCPCS: 11042; 11045 ==

== ENCOUNTER → 2022-02-26 14:31 | Outpatient (BNVA) | payer MEDICAID, SELFPAY | PROVIDERS: PCP Nurse Practitioner Family; Visit Provider Nurse Practitioner Family | DX: I96 Gangrene, not elsewhere classified (principal); I87.2 Venous insufficiency (chronic) (peripheral); L97.822 Non-pressure chronic ulcer of other part of left lower leg with fat layer exposed | CPT/HCPCS: 29581; A6252 ==

== ENCOUNTER → 2022-03-05 14:59 | Outpatient (BNVA) | payer MEDICAID, SELFPAY | PROVIDERS: PCP Nurse Practitioner Family; Visit Provider Nurse Practitioner Family | DX: I96 Gangrene, not elsewhere classified (principal); I87.2 Venous insufficiency (chronic) (peripheral); L97.822 Non-pressure chronic ulcer of other part of left lower leg with fat layer exposed | CPT/HCPCS: 11042; 11045; 87070; 87077; 87176; 87186; 87205; A6253 ==

== ENCOUNTER → 2022-03-12 14:38 | Outpatient (BNVA) | payer MEDICAID, SELFPAY | PROVIDERS: PCP Nurse Practitioner Family; Visit Provider Nurse Practitioner Family | DX: I96 Gangrene, not elsewhere classified (principal); I87.2 Venous insufficiency (chronic) (peripheral); L97.822 Non-pressure chronic ulcer of other part of left lower leg with fat layer exposed | CPT/HCPCS: 11042; 11045; A6252 ==

== ENCOUNTER 2022-03-19 14:36 | Inpatient (IN) | payer MEDICAID, SELFPAY ==
[2022-03-19] VITALS (7 sets, daily range): BP systolic 143–164; BP diastolic 66–89; PULSE 50–62; RESP 14–17; TEMP 36.4; O2SAT 96–100; BMI 20.9
--- NOTE | 2022-03-19 16:26 | ED_ITS ---
HPI - Extremity Problem General: Chief complaint: Extremity Problem,Nontraumatic Stated complaint: left leg pain Time Seen by Provider: 03/19/22 16:26 History of Present Illness: Mr. Weldon is a 76-year-old gentleman with history of peripheral vascular disease and chronic wounds presenting to the emergency department due to concern over wound. He follows closely with wound care and [facility] home health wound care services. He recently has been on an empiric course of antibiotics for E. coli culture positive however starting yesterday developed increased drainage, heat, redness, pain. Intensity symptoms is progressed to the point that it is severe. He presented to wound care today and the wound appeared significantly worse than they have seen recently. Given the patient is already on antibiotics they recommended ED are evaluation for likely admission for IV antibiotics. No other specific changes in health, exacerbating, or alleviating factors identified. Onset (ago): day(s) Pain Consistency: constant Location: left and lower extremity Severity scale (1-10): 9 Quality: aching and sharp Radiation: none Relieving factors: nothing Exacerbating factors: weight bearing and palpation Associated symptoms: Reports no associated symptoms Review of Systems General: Reports: 10 or more systems reviewed and unremarkable except in HPI and below PFSH ED PFSH: Medical History (Updated 03/25/22 @ 00:00 by ) Abdominal wall hernia Bladder diverticulum Bladder stone History of MRSA infection Lipodermatosclerosis of left lower extremity Venous stasis of both lower extremities Surgical History (Updated 03/19/22 @ 18:16 by To Ayers MD) History of surgery on arm Hx of cataract extraction RIGHT EYE Hx of hernia repair Hx of tonsillectomy Status post transurethral resection of prostate Family History Mother Cancer Father Cancer Other CAD (coronary artery disease) Diabetes Social History Smoking and tobacco status: former smoker Second hand smoke exposure: Yes Alcohol intake: never History of recent travel: No Physical Exam Const: COMMON NORMALS: alert GENERAL APPEARANCE: cooperative and well developed HENMT: COMMON NORMALS: normocephalic and atraumatic HEAD & SCALP: normocephalic and atraumatic Eye: COMMON NORMALS: conjunctivae normal CONJUNCTIVA: Yes conjunctivae normal SCLERA: sclerae normal Neck/C-Spine: COMMON NORMALS: supple GENERAL: Yes trachea midline Resp: COMMON NORMALS: clear to auscultation bilaterally EFFORT & INS PECTION: Yes able to speak in complete sentences AUSCULTATION: clear to auscultation bilaterally Cardio: COMMON NORMALS: regular rate and regular rhythm RATE: regular rate RHYTHM: regular rhythm GI: COMMON NORMALS: Soft to palpation PALPATION: Yes Soft to palpation and No Tenderness to palpation present (GI) PERCUSSION: normal to percussion Extremity: NARRATIVE EXTREMITY EXAM: Large soft tissue defect with drainage about the left medial lower leg and ankle region. Surrounding erythema, significant tenderness palpation. GENERAL: Yes normal exam except as noted and No edema Neuro: COMMON NORMALS: moves all extremities SENSORIUM/ORIENTATION: Yes alert and No Orientation impaired Psych: COMMON NORMALS: mental status grossly normal and Normal thought process present THOUGHT PROCESS: Normal thought process present Course Vital Signs: Vital signs: Vital Signs Temperature 97.4 F L 03/24/22 12:00 Pulse Rate 80 03/24/22 12:00 Respiratory Rate 16 03/24/22 12:00 Blood Pressure 115/74 03/24/22 12:00 Pulse Oximetry 96 03/24/22 12:00 Oxygen Delivery Me thod 03/24/22 12:00 MDM - Extremity (Nontraumatic) Medical Decision Making 76-year-old gentleman with peripheral vascular disease presenting with worsening lower extremity wound in the context of currently being on antibiotics. Exam as above. Labs notable for no leukocytosis, hemoglobin is normal. Metabolic panel unremarkable. CRP is mildly elevated. No UTI. X-ray negative for bony abnormality underlying wound. Given worsening symptoms despite outpatient antibiotics believe that inpatient antibiotics is appropriate. During ED course patient treated with antibiotics and analgesia. Most likely etiology of symptoms is acute infection of chronic wound The results of ED evaluation were discussed with the patient including plan for admission due to requirement for level of care not available if discharged to prevent significant worsening/deterioration. Patient agreeable with plan. Discussed with hospitalist service who was agreeable to admit patient. Medical Records I reviewed the patient's medical records. Lab Data I reviewed the patient's lab results. 03/19/22 16:10 03/19/22 16:10 Radiology Impressions Ankle X-Ray 03/19/22 16:36 IMPRESSION: Soft tissue abnormality otherwise negative left ankle. Laboratory Results WBC 6.6 10^3/uL (4.0-10.0) 03/19/22 16:10 RBC 3.88 10^6/uL (4.1-5.3) L 03/19/22 16:10 Hgb 11.9 g/dL (11.7-16.6) 03/19/22 16:10 Hct 36.6 % (42.0-52.0) L 03/19/22 16:10 MCV 94.3 fl (80-94) H 03/19/22 16:10 MCH 30.7 pg (28.0-34.0) 03/19/22 16:10 MCHC 32.5 g/dL (30.0-36.0) 03/19/22 16:10 RDW 14.2 % (12.1-15.1) 03/19/22 16:10 Plt Count 295 10^3/cmm (130-400) 03/19/22 16:10 MPV 10.0 fL (7.4-10.4) 03/19/22 16:10 Neut % (Auto) 62.3 % 03/19/22 16:10 Lymph % (Auto) 19.0 % 03/19/22 16:10 [place] % (Auto) 11.4 % 03/19/22 16:10 Eos % (Auto) 5.9 % 03/19/22 16:10 Baso % (Auto) 1.1 % 03/19/22 16:10 Neut # (Auto) 4.09 10^3/uL (1.8-7.7) 03/19/22 16:10 Lymph # (Auto) 1.3 10^3/uL (0.8-4.8) 03/19/22 16:10 [place] # (Auto) 0.8 10^3/uL (0.2-0.9) 03/19/22 16:10 Eos # (Auto) 0.4 10^3/uL (0.0-0.8) 03/19/22 16:10 Baso # (Auto) 0.1 10^3/uL (0.0-0.1) 03/19/22 16:10 Nucleated RBC % (auto) 0 % 03/19/22 16:10 Nucleated RBCs # 0.0 /100WBC 03/19/22 16:10 ESR 7 mm/hr (0-10) 03/19/22 16:10 Sodium 136 mmol/L (136-145) 03/19/22 16:10 Potassium 3.9 mmol/L (3.5-5.1) 03/19/22 16:10 Chloride 101 mmol/L (98-107) 03/19/22 16:10 Carbon Dioxide 27 mmol/L (22-29) 03/19/22 16:10 Anion Gap 11.9 (5-19) 03/19/22 16:10 BUN 13 mg/dL (8-23) 03/19/22 16:10 Creatinine 0.7 mg/dL (0.7-1.2) 03/19/22 16:10 GFR Calculation Not Reportable 03/19/22 16:10 Glucose 95 mg/dL (65-115) 03/19/22 16:10 Calculated Osmolality 282 mOsm/kg (285-295) L 03/19/22 16:10 Lactic Acid 1.2 mmol/L (0.5-2.2) 03/19/22 16:10 Calcium 8.8 mg/dL (8.5-10.5) 03/19/22 16:10 Total Bilirubin 0.4 mg/dL (0.15-1.2) 03/19/22 16:10 AST 18 U/L (0-40) 03/19/22 16:10 ALT 9 U/L (0-41) 03/19/22 16:10 Alkaline Phosphatase 149 U/L (40-130) H 03/19/22 16:10 C-Reactive Protein 22.6 mg/L (0.0-4.9) H 03/19/22 16:10 Total Protein 6.7 g/dL (6.6-8.7) 03/19/22 16:10 Albumin 3.5 g/dL (3.5-5.2) 03/19/22 16:10 Globulin 3.2 g/dL (1.3-4.6) 03/19/22 16:10 Discharge Plan Discharge Patient Disposition: Placed in Observation Admit Provider: To Ayers Clinical Impression: Cellulitis, Vascular insufficiency of extremity, Chronic wound of extremity Discharge Diet: Usual diet Discharge Activity: Resume usual activity and Increase activity as tolerated Coding Level of Care Code ED Fire And Explosion Investigator for Chg Fwd Exam Comprehensive
[2022-03-19 16:30] LABS: Basophils # 0.1 10^3/uL (0.0-0.1); Basophils % 1.1 %; Eosinophils # 0.4 10^3/uL (0.0-0.8); Eosinophils % 5.9 %; Hematocrit 36.6 % (42.0-52.0); Hemoglobin 11.9 g/dL (11.7-16.6); Lymphocytes # 1.3 10^3/uL (0.8-4.8); Mean Corpuscular HGB Conc 32.5 g/dL (30.0-36.0); Mean Corpuscular Hemoglobin 30.7 pg (28.0-34.0); Mean Corpuscular Volume 94.3 fl (80-94); Monocytes # 0.8 10^3/uL (0.2-0.9); Monocytes % 11.4 %; Neutrophils # 4.09 10^3/uL (1.8-7.7); Neutrophils % 62.3 %; Nucleated Red Blood Cells % 0 %; Platelet Count 295 10^3/cmm (130-400); Red Blood Count 3.88 10^6/uL (4.1-5.3); Red Cell Distribution Width 14.2 % (12.1-15.1); White Blood Count 6.6 10^3/uL (4.0-10.0)
--- NOTE | 2022-03-19 16:36 | XRR_ITS ---
PROCEDURE INFORMATION: Exam: XR Left Ankle Exam date and time: 03/19/2022 4:45 PM Age: 76 years old Clinical indication: Pain; Patient HX: Left medial ankle wound; Additional info: Wound, increased pain TECHNIQUE: Imaging protocol: Radiologic exam of the Left ankle. Views: 3 or more views. COMPARISON: No relevant prior studies available. FINDINGS: Bones/joints: Osseous structures are intact. No fracture or malalignment. Visualized joint surfaces are preserved. Soft tissues: There is a soft tissue defect adjacent to the medial malleolus consistent with history of medial ankle wound. XR/XR ankle LT min 3V* [id number] IMPRESSION: Soft tissue abnormality otherwise negative left ankle.
[2022-03-19 16:37] LABS: Erythrocyte Sedimentation Rate 7 mm/hr (0-10)
[2022-03-19 16:53] LABS: Alanine Aminotransferase 9 U/L (0-41); Albumin Level 3.5 g/dL (3.5-5.2); Alkaline Phosphatase 149 U/L (40-130); Anion Gap 11.9 (5-19); Aspartate Amino Transferase 18 U/L (0-40); Blood Urea Nitrogen 13 mg/dL (8-23); C Reactive Protein 22.6 mg/L (0.0-4.9); Calcium 8.8 mg/dL (8.5-10.5); Carbon Dioxide 27 mmol/L (22-29); Chloride 101 mmol/L (98-107); Globulin 3.2 g/dL (1.3-4.6); Glucose 95 mg/dL (65-115); Osmolality Calculated 282 mOsm/kg (285-295); Potassium 3.9 mmol/L (3.5-5.1); Sodium 136 mmol/L (136-145); Total Bilirubin 0.4 mg/dL (0.15-1.2); Total Protein 6.7 g/dL (6.6-8.7)
[2022-03-19 16:54] LABS: Lactic Sepsis W/Reflex 1.2 mmol/L (0.5-2.2)
[2022-03-19] MEDS: morphine 4 mg/mL SDV 1 mL IVP (17:49)
[2022-03-19] MEDS: piperacillin-tazobactam 4.5 GM in sodium chloride 0.9% (plus) 50 ML IV (17:49)
--- NOTE | 2022-03-19 18:12 | P.HP_ITS ---
Providers/Chief Complaint Primary Care Provider: BLAKE Burgos Chief Complaint: left leg pain History of Present Illness Jose Weldon is a 76 year old male with past medical history of chronic lower limb cellulitis because of peripheral artery disease who follows up at wound care clinic was sent in today from wound care clinic because of failure of outpatient treatment with ciprofloxacin. As per the patient his wound was stable until 10 days ago when he started noticing more drainage along with redness of the leg for which he when he went to wound care services he underwent debridement and was started on ciprofloxacin. Today when he went for follow-up because of no improvement and worsening of redness he was sent back to the ER for further evaluation. Patient otherwise denies any purulent discharge, bloody discharge, fever, nausea or vomiting, headache, recent injury to the foot. Review of Systems General: Reports: 10 or more systems reviewed and unremarkable except in HPI and below Const: Denies: fever(s), chills, body aches, change in appetite, change in weight, malaise, night sweats, diaphoresis, change in sleep pattern, daytime sleepiness or snoring Eyes: Denies: change in vision, blurry vision, photophobia, eye discomfort or eye discharge ENMT: Denies: throat pain, enlarged tonsils, hoarseness, mouth pain, oral sores, dry mouth, tinnitus, nasal congestion or post nasal drip Card: Denies: chest pain, palpitations, irregular heart rhythm, edema, swelling of feet/ankles, lightheadedness, syncope, pre-syncope, dyspnea on exertion, orthopnea, leg pain with exertion or acrocyanosis Resp: Denies: dyspnea, productive cough, non-productive cough, wheezing, stridor, pain on inspiration, change in phlegm color, hemoptysis or chest congestion GI: Denies: abdominal pain, nausea, vomiting, hematemesis, coffee ground emesis, dysphagia, heartburn, diarrhea, constipation, bloating, GI cramping, change in bowel habits, pain on defecation, hematochezia or melena : Denies: flank pain, difficulty urinating, dysuria, urinary frequency, urinary urgency, urinary hesitancy, urinary dribbling, difficulty starting urination, change in urine stream, nocturia or hematuria Musc: Denies: neck pain, back pain, extremity pain, joint pain, joint swelling, joint redness, joint stiffness or limited range of motion Neuro: Denies: headache(s), numbness in extremities, weakness in extremities, sensory changes, lack of coordination, difficulty walking, frequent falls, dizziness, vertigo, confusion, Slurred speech present, difficulty communicating thoughts or seizure-like activity Psych: Denies: anxiety, depression, mood swings, panic attacks, hopelessness or irritability Endo: Denies: polyuria, polydipsia, tired all the time, cold intolerance, excessive sweating, flushing or heat intolerance [place]/Lymph: Denies: easy bruising or easy bleeding All/Imm: Denies: tongue swelling, facial swelling or acute wheezing Medications/Allergies Home Medications Medication Instructions Recorded Confirmed Last Taken Type acetaminophen 650 mg 650 mg PO Q12H 05/11/20 03/19/22 Unknown History tablet,extended release (Tylenol Arthritis Pain) aspirin 81 mg tablet,delayed 81 mg PO DAILY 05/11/20 03/19/22 03/19/22 History release docusate sodium 100 mg capsule 100 mg PO DAILY PRN Constipation 05/11/20 03/19/22 Unknown History (Stool Softener) mecobalamin (vitamin B12) 5,000 5,000 mcg PO DAILY 05/11/20 03/19/22 03/19/22 History mcg disintegrating tablet omega-3 fatty acids 1,000 mg 1,000 mg PO BID 05/11/20 03/19/22 03/19/22 History capsule (Fish Oil Concentrate) hydrocodone 5 mg-acetaminophen 325 1 tab PO Q8H PRN pain #8 tabs 06/01/20 1 05/20/21 Unknown Rx mg tablet (Stonewall) Bacillus subtilis 1.5 billion 1 tab PO DAILY #30 tabs 12/14/20 03/19/22 03/19/22 Rx cell-inulin 1 gram chewable tablet (Culturelle Gummy) multivitamin 1 tab PO DAILY 05/09/21 03/19/22 03/19/22 History ciprofloxacin HCl 500 mg tablet 500 mg PO BID wound infection 21 03/09/22 03/19/22 03/19/22 Rx (Cipro) days #42 tabs fluconazole 150 mg tablet 150 mg PO .COMPLEX yeast infection 03/09/22 03/19/22 03/16/22 Rx (Diflucan) 3 weeks #3 tabs saw palm 50 mg-pyg 20 mg-nettl 25 1 cap PO DAILY 03/19/22 03/19/22 03/19/22 History mg-pump 100 [id number] capsule (Prostate Control) vitamin E 670 mg (1,000 unit) 670 mg PO DAILY 03/19/22 03/19/22 03/19/22 History capsule Allergies Allergy/AdvReac Type Severity Reaction Status Date / Time chlorpromazine Allergy ADR-Muscle Verified 02/14/22 14:26 [From Thorazine] Pain diazepam [From Valium] Allergy ALGY-Difficulty Verified 02/14/22 14:26 Swallowing zinc oxide Allergy RED/SWETS/SKIN Verified 02/14/22 14:26 IRRITATION Valium Allergy Unknown unknown Uncoded 02/14/22 14:26 PFSH Acute PFSH: Medical History (Updated 03/19/22 @ 18:21 by To Ayers MD) Abdominal wall hernia Bladder diverticulum Bladder stone History of MRSA infection Venous stasis of both lower extremities Surgical History (Updated 03/19/22 @ 18:16 by To Ayers MD) History of surgery on arm Hx of cataract extraction RIGHT EYE Hx of hernia repair Hx of tonsillectomy Status post transurethral resection of prostate Family History Mother Cancer Father Cancer Other CAD (coronary artery disease) Diabetes Social History Smoking and tobacco status: former smoker Second hand smoke exposure: Yes Alcohol intake: never History of recent travel: No Vitals/I&O/Wt Last Vital Signs Temp 97.6 F 03/19/22 15:02 Pulse 61 03/19/22 15:02 Resp 16 03/19/22 17:49 BP 155/73 03/19/22 15:02 Pulse Ox 98 03/19/22 15:02 O2 Del Method 03/19/22 15:02 Weight last 48 hrs Weight 70.307 kg Physical Exam Narrative: General: No acute distress, AO x3 HEENT: PERRLA, pupils bilaterally equal and reactive Chest: Normal vesicular breath sounds, no added sounds, equal good air entry bilaterally CVS: S1-S2 regular, no murmurs, no tachycardia, no gallops, no rubs Abdomen: Soft, nontender, no organomegaly, bowel sounds present Neuro: No focal deficits, no facial deformity, AO x3, power 5/5 in all limbs Extremity: Left lower leg and foot erythematous, warm to touch, nonhealing ulcer present on medial ankle elliptical in shape with pink to white color base with serosanguineous discharge Data 03/19/22 16:10 03/19/22 16:10 Micro: Microbiology 03/19/22 16:20 Blood Culture - Preliminary Blood SPECIMEN COLLECTED 03/19/22 16:10 Blood Culture - Preliminary Blood SPECIMEN COLLECTED A&P Assessment and plan (1) Cellulitis: Along with nonhealing chronic ulcer of left lower leg around the ankle. Most likely chronic venous stasis. Failure of outpatient treatment with oral ciprofloxacin. Check lower limb arterial duplex to rule out PAD. History of MRSA infection in the past. Check blood culture, MRSA swab, urinalysis, urine culture. Wound cultures have chronically grown Pseudomonas. Sensitivities noted. For now start on vancomycin and Zosyn. Check CRP. If elevated will do lower limb CT scan. X-ray negative for any osteomyelitis. (2) Nonhealing ulcer of left lower extremity: (3) Vascular insufficiency of extremity: (4) History of MRSA infection: (5) Failure of outpatient treatment: Plan Continue other chronic medication. Full code. Famotidine for PUD prophylaxis. Heparin 5000 every 12 hourly for DVT prophylaxis Cardiac diet. Attestations Medical Necessity Statement*: Admission for more than 2 midnights for cellulitis along with nonhealing ulcer of left lower limb with a history of MRSA in the past Time Spent in Patient Care: Greater than 35 minutes Coding Level of Care Code Acute Container Finishing Inspector for [facility] Fwd Diagnoses Cellulitis L03.90 Nonhealing ulcer of left lower extremity L97.929 Vascular insufficiency of extremity I99.8 History of MRSA infection Z86.14 Failure of outpatient treatment Z78.9
[2022-03-19] MEDS: vancomycin 1,500 MG/300 ML PIGGYBACK 200 MG IV (19:00)
[2022-03-19 19:27] LABS: Thyroid Stimulating Hormone 1.31 uIU/mL (0.27-4.20)
[2022-03-19 21:48] LABS: Iron 37 ug/dL (59-158); Percent Saturation 15.4 % (20-50); Total Iron Binding Capacity 239 mcg/dl; Unsaturated Iron Binding 202 ug/dL (112-347)
--- NOTE | 2022-03-19 21:53 | PC.NURSE ---
Patient arrived via wheelchair from ED approximately 1929. Patient A&O, VSS. Patient states that he came to the hospital due to open wound on left ankle. Patient resting in bed, locked in lowest position with call light within reach.
[2022-03-19 22:03] LABS: Procalcitonin 0.03 ng/mL (0-0.5); Vitamin B12 682 pg/mL (232-1245)
[2022-03-19 22:04] LABS: Folate Level 5.6 ng/mL (4.5-32.2)
--- NOTE | 2022-03-19 22:28 | PC.NURSE ---
Patient stated that he was exposed to Covid by his friend Brian earlier today. Patient now in private room, droplet and airborne precautions in place.
[2022-03-19 23:19] LABS: Add Urine Microscopic? NO; Charge for UA Resulting for Rev
[2022-03-19] MEDS: heparin 5,000 unit/mL INJ 1 mL 5000 UNIT SUBCUT (23:19)
--- NOTE | 2022-03-19 23:32 | PC.NURSE ---
Patient had two separate collections of money. Money was counted with this nurse and patient, as well as charge nurse and this nurse. First collection of money was the followin $20, 1 $10, 1 $5, and 1 $1. The other collection of money was 4 $100, 2 $50, 4 $20, 7 $10 and 3 $5. Patient money was placed in plastic bag with patient label intact and bag secured in pixis, witnessed by charge nurse. Patient was informed patient money was placed in Pixis and patient verbalized understanding.
--- NOTE | 2022-03-19 23:35 | PC.NURSE ---
Patient's bag of clothes remained at bedside by patient.
[2022-03-19 23:43] LABS: Specific Gravity, Urine 1.015 (1.005-1.030); Urine Appearance Clear (CLEAR); Urine Color Yellow (Yellow); pH Urine 6.5 (5-7)
[2022-03-19 23:44] LABS: Bilirubin Urine Neg (Negative); Blood Urine Neg (Negative); Glucose Urine UA Norm (Normal); Ketones Urine Negative (Negative); Leukocyte Esterase Urine Negative (Negative); Nitrate Urine Negative (Negative); Protein Urine Neg (Negative); Urobilinogen Urine Norm (Negative)
[2022-03-20] VITALS (8 sets, daily range): BP systolic 108–130; BP diastolic 61–76; PULSE 54–68; RESP 16–18; TEMP 36.3–36.8; O2SAT 96–99
--- NOTE | 2022-03-20 00:10 | PC.NURSE ---
Dr Zuniga notified of patient running jesus.
[2022-03-20] MEDS: piperacillin-tazobactam 3.375 GM in sodium chloride 0.9% (plus) 50 ML IV ×3 (00:16→17:01)
[2022-03-20 00:59] LABS: Adenovirus Detected (NOT DETECT); Chlamydia Pneumoniae Not Detected (NOT DETECT); Coronavirus 229E,HKU1,NL63,OC4 Not Detected (NOT DETECT); Human Metapneumovirus Not Detected (NOT DETECT); Human Rhinovirus/Enterovirus Not Detected (NOT DETECT); Influenza A Not Detected (NOT DETECT); Influenza A H1 Not Detected (NOT DETECT); Influenza A H1-2009 Not Detected (NOT DETECT); Influenza A H3 Not Detected (NOT DETECT); Influenza B Not Detected (NOT DETECT); Mycoplasma Pneumoniae Not Detected (NOT DETECT); Parainfluenza Virus Type 1 Not Detected (NOT DETECT); Parainfluenza Virus Type 2 Not Detected (NOT DETECT); Parainfluenza Virus Type 3 Not Detected (NOT DETECT); Parainfluenza Virus Type 4 Not Detected (NOT DETECT); Respiratory Syncytial Virus A Not Detected (NOT DETECT); Respiratory Syncytial Virus B Not Detected (NOT DETECT); SARS-COV-2 Not Detected (NOT DETECT)
[2022-03-20 01:03] LABS: Adenovirus Detected (NOT DETECT); Results from Genmark
[2022-03-20] MEDS: vancomycin 1,000 MG in sodium chloride 0.9% 250 ML 250 MG IV ×2 (05:01→17:01)
[2022-03-20 05:12] LABS: Basophils # 0.1 10^3/uL (0.0-0.1); Basophils % 1.4 %; Eosinophils # 0.7 10^3/uL (0.0-0.8); Eosinophils % 11.5 %; Hematocrit 35.6 % (42.0-52.0); Hemoglobin 11.3 g/dL (11.7-16.6); Lymphocytes # 1.5 10^3/uL (0.8-4.8); Lymphocytes % 26.3 %; Mean Corpuscular HGB Conc 31.7 g/dL (30.0-36.0); Mean Corpuscular Hemoglobin 30.1 pg (28.0-34.0); Mean Corpuscular Volume 94.7 fl (80-94); Mean Platelet Volume 9.9 fL (7.4-10.4); Monocytes # 0.7 10^3/uL (0.2-0.9); Monocytes % 12.5 %; Neutrophils # 2.72 10^3/uL (1.8-7.7); Neutrophils % 47.9 %; Nucleated Red Blood Cells % 0 %; Platelet Count 253 10^3/cmm (130-400); Red Blood Count 3.76 10^6/uL (4.1-5.3); Red Cell Distribution Width 14.1 % (12.1-15.1); White Blood Count 5.7 10^3/uL (4.0-10.0)
[2022-03-20 05:28] LABS: Estmated Average Glucose 117; Hemoglobin A1C 5.7 % (4.0-6.0)
[2022-03-20 05:36] LABS: Alanine Aminotransferase 9 U/L (0-41); Albumin Level 3.1 g/dL (3.5-5.2); Alkaline Phosphatase 130 U/L (40-130); Anion Gap 10.1 (5-19); Aspartate Amino Transferase 15 U/L (0-40); Blood Urea Nitrogen 10 mg/dL (8-23); Calcium 8.7 mg/dL (8.5-10.5); Carbon Dioxide 27 mmol/L (22-29); Chloride 107 mmol/L (98-107); Chol HDL Ratio 3.97 mg/dL (1.0-5.00); Cholesterol 135 mg/dL (0-200); Globulin 2.8 g/dL (1.3-4.6); Glucose 84 mg/dL (65-115); HDL Cholesterol 34 mg/dL (60-100); LDL Cholesterol Calculated 88 mg/dL (50-129); Magnesium 2.1 mg/dL (1.7-2.3); Osmolality Calculated 288 mOsm/kg (285-295); Phosphorus 2.9 mg/dL (2.5-4.5); Potassium 4.1 mmol/L (3.5-5.1); Sodium 140 mmol/L (136-145); Total Bilirubin 0.6 mg/dL (0.15-1.2); Total Protein 5.9 g/dL (6.6-8.7); Triglycerides 64 mg/dL (0-150); VLDL Cholestrol Calculation 13 mg/dL (0-30)
[2022-03-20] MEDS: heparin 5,000 unit/mL INJ 1 mL 5000 UNIT SUBCUT ×2 (08:58→21:08)
[2022-03-20] MEDS: aspirin 81 mg EC Tablet PO (08:59)
[2022-03-20] MEDS: famotidine 20 mg Tablet PO ×2 (08:59→17:02)
--- NOTE | 2022-03-20 10:41 | PC.CHAP ---
Pastoral Care Encounter/Spiritual Assessment Type of Contact [] Declined lead ruby on rails developer visit [] Patient/Family/Request visit [] Outpatient visit [] Follow-up visit [] Physician referral [] Code/Alert [x] Routine visit [] Staff referral [] Actively dying [] Patient sleeping [] Family support [] [] Out of room [] Palliative care [] [] Receiving care in room [] Pre-surgical visit [] Trauma [] Long length of stay [] ICU visit [x] Other:isolation Relational/Emotional Strength [] Patient feels connected with others/family/visitors/staff [] Distress [] Loneliness/isolation [] Abandonment Spirituality of Patient [] Person of Hilda [] Attends Mandaen of their Hilda [] Believes in Prayer [] Reads Bible or Jew materials [] There are Spiritual issues to be addressed Implementation Director Interventions [] Prayer [] Active listening [] Non-anxious presence [] Spiritual/emotional support [] Crisis/trauma care [] Spiritual counseling [] Bereavement support [] Provided bereavement packet [] Provided Bible/devotional materials [] Provided toy/stuffed animal, coloring book to patient or family member [] Provided Communion [] Anointing/[place] [] Salvation [] Completed spiritual assessment [] Other: Impact on Illness or Injury [] Angry [] Fearful [] Anxious [] Often cries [] Exhaustion [] Unable to work [] Unable to attend advent [] Unable to walk/stand [] Unable to read [] Unable to drive [] Unable to eat/drink [] Unable to sleep [] Unable to be with family [] Patient intubated [] Other: Summary Time spent with patient
--- NOTE | 2022-03-20 14:06 | PM.PN ---
Subjective Subjective: No acute events overnight. Patient denies any nausea, vomiting, headache. States his leg is hurting less today. Seems to be less red today. Denies any other complaint. Vitals/I&O/Wt Last Vital Signs Temp 98.1 F 03/20/22 12:00 Pulse 59 L 03/20/22 12:00 Resp 17 03/20/22 12:00 BP 113/70 03/20/22 12:00 Pulse Ox 98 03/20/22 12:00 O2 Del Method 03/20/22 12:00 03/19/22 03/20/22 03/20/22 22:59 06:59 14:59 Intake Total 1070 / 1070 540 / 1610 530 / 530 Output Total 350 / 350 400 / 400 Balance 1070 / 1070 190 / 1260 130 / 130 Weight last 48 hrs Weight 70.715 kg Weight 70.307 kg Weight 70.307 kg Physical Exam Narrative: General: No acute distress, AO x3 HEENT: PERRLA, pupils bilaterally equal and reactive Chest: Normal vesicular breath sounds, no added sounds, equal good air entry bilaterally CVS: S1-S2 regular, no murmurs, no tachycardia, no gallops, no rubs Abdomen: Soft, nontender, no organomegaly, bowel sounds present Neuro: No focal deficits, no facial deformity, AO x3, power 5/5 in all limbs Extremity: Left lower leg and foot erythematous, warm to touch, nonhealing ulcer present on medial ankle elliptical in shape with pink to white color base with serosanguineous discharge Data 03/20/22 05:03 03/20/22 05:03 Micro: Microbiology 03/19/22 22:29 MRSA Culture - Final Nose 03/19/22 22:29 Bacterial Antigens - Final Urine Kidney 03/19/22 22:29 Legionella Urinary Antigen - Final Urine,Voided 03/19/22 16:20 Blood Culture - Preliminary Blood SPECIMEN COLLECTED 03/19/22 16:10 Blood Culture - Preliminary Blood SPECIMEN COLLECTED A&P Assessment and plan (1) Cellulitis: Along with nonhealing chronic ulcer of left lower leg around the ankle. Most likely chronic venous stasis. Failure of outpatient treatment with oral ciprofloxacin. Check lower limb arterial duplex to rule out PAD?still pending. History of MRSA infection in the past. MRSA swab negative. Blood culture pending. Wound cultures have chronically grown Pseudomonas. Sensitivities noted. Continue with vancomycin and Zosyn. CRP still mildly elevated which seems to be patient's baseline. X-ray negative for osteomyelitis. Will consult Dr. Garcia from podiatry for further recommendations. Continue with wound care. (2) Nonhealing ulcer of left lower extremity: (3) Vascular insufficiency of extremity: (4) History of MRSA infection: (5) Failure of outpatient treatment: Plan Continue other chronic medication. Full code. Famotidine for PUD prophylaxis. Heparin 5000 every 12 hourly for DVT prophylaxis Cardiac diet. Attestations Medical Necessity Statement*: Requires further hospitalization for management of cellulitis along with chronic nonhealing ulcer with failure of outpatient treatment Time Spent in Patient Care: Greater than 35 minutes Coding Level of Care Code Acute Data Collection Specialist for [facility] Diagnoses Cellulitis L03.90 Nonhealing ulcer of left lower extremity L97.929 Vascular insufficiency of extremity I99.8 History of MRSA infection Z86.14 Failure of outpatient treatment Z78.9
--- NOTE | 2022-03-20 17:32 | PM.CONSULT ---
Providers/Reason For Consult Consulting Physician/Specialty*: Taj Garcia D.P.M. Reason for Consult*: Cellulitis left lower extremity Attending Physician: To Ayers MD Primary Care Provider: BLAKE Burgos History of Present Illness History of Present Illness Jose Weldon is a 76 year old male presents with a venous insufficiency ulceration to his left medial malleolus. He was referred by wound care for admission to the hospital service for IV antibiotics. Wound culture taken of the left medial malleolus wound on 02/25/2022 significant for Pseudomonas he was prescribed ciprofloxacin and the wound progressed with increased redness and drainage. Patient reports a longstanding history of a venous ulceration to his left ankle. First wound began in 1990. Patient states he typically tries to wear compression socks to prevent wound formation. States that the wound has healed and we ulcerated more than a dozen times. Has history of venous ablation. Longstanding relationship with wound care. Documentation for active treatment of this wound in this location dates back to 2016 at [facility] wound care clinic. Patient denies any subjective nausea, vomiting, fever, chills, shortness of breath or chest pain. Review of Systems General: Reports: 10 or more systems reviewed and unremarkable except in HPI and below Const: Denies: fever(s) or chills Eyes: Denies: change in vision Card: Denies: chest pain or palpitations Resp: Denies: dyspnea or productive cough GI: Denies: abdominal pain, nausea or vomiting : Denies: flank pain Musc: Reports: extremity swelling, joint stiffness and deformity Skin/Breast: Reports: erythema, sores, changes in skin color, dry skin, nail changes and change in hair Neuro: Reports: numbness in extremities, sensory changes and difficulty walking Psych: Denies: suicidal ideation Endo: Denies: change in body appearance [place]/Lymph: Denies: tender lymph nodes Medications/Allergies Home Medications Medication Instructions Recorded Confirmed Last Taken Type acetaminophen 650 mg 650 mg PO Q12H 05/11/20 03/19/22 Unknown History tablet,extended release (Tylenol Arthritis Pain) aspirin 81 mg tablet,delayed 81 mg PO DAILY 05/11/20 03/19/22 03/19/22 History release docusate sodium 100 mg capsule 100 mg PO DAILY PRN Constipation 05/11/20 03/19/22 Unknown History (Stool Softener) mecobalamin (vitamin B12) 5,000 5,000 mcg PO DAILY 05/11/20 03/19/22 03/19/22 History mcg disintegrating tablet omega-3 fatty acids 1,000 mg 1,000 mg PO BID 05/11/20 03/19/22 03/19/22 History capsule (Fish Oil Concentrate) hydrocodone 5 mg-acetaminophen 325 1 tab PO Q8H PRN pain #8 tabs 06/01/20 03/19/22 Unknown Rx mg tablet ([place]) Bacillus subtilis 1.5 billion 1 tab PO DAILY #30 tabs 12/14/20 03/19/22 03/19/22 Rx cell-inulin 1 gram chewable tablet (Antoni Cruz) multivitamin 1 tab PO DAILY 05/09/21 03/19/22 03/19/22 History ciprofloxacin HCl 500 mg tablet 500 mg PO BID wound infection 21 03/09/22 03/19/22 03/19/22 Rx (Cipro) days #42 tabs fluconazole 150 mg tablet 150 mg PO .COMPLEX yeast infection 03/09/22 03/19/22 03/16/22 Rx (Diflucan) 3 weeks #3 tabs saw palm 50 mg-pyg 20 mg-nettl 25 1 cap PO DAILY 03/19/22 03/19/22 03/19/22 History mg-pump 100 [id number] capsule (Prostate Control) vitamin E 670 mg (1,000 unit) 670 mg PO DAILY 03/19/22 03/19/22 03/19/22 History capsule Allergies Allergy/AdvReac Type Severity Reaction Status Date / Time chlorpromazine Allergy ADR-Muscle Verified 02/14/22 14:26 [From Thorazine] Pain diazepam [From Valium] Allergy ALGY-Difficulty Verified 02/14/22 14:26 Swallowing zinc oxide Allergy RED/SWETS/SKIN Verified 02/14/22 14:26 IRRITATION Valium Allergy Unknown unknown Uncoded 02/14/22 14:26 Current Medications Generic Name Dose Route Start Last Admin Trade Name Freq PRN Reason Stop Dose Admin Aspirin 81 mg 03/20/22 09:00 03/20/22 08:59 Aspirin 81 Mg Ec Tablet PO 81 mg DAILY GITA Administration Famotidine 20 mg 03/20/22 09:00 03/20/22 17:02 Famotidine 20 Mg Tablet PO 20 mg BID GITA Administration Heparin Sodium (Porcine) 5,000 unit 03/19/22 20:00 03/20/22 08:58 Heparin 5,000 Unit/Ml Inj 1 Ml SUBCUT 5,000 unit Q12H GITA Administration Vancomycin HCl 1,000 mg/ 250 mls @ 250 mls/hr 03/20/22 05:00 03/20/22 17:01 Sodium Chloride IV 250 mls/hr Q12H GITA Administration Protocol As Directed Piperacillin Sod/Tazobactam 50 mls @ 12.5 mls/hr 03/20/22 01:00 03/20/22 17:01 Sod 3.375 gm/ Sodium Chloride IV 12.5 mls/hr Q8H GITA Administration Protocol As Directed PFSH Acute PFSH: Medical History (Updated 03/21/22 @ 07:02 by Taj Garcia DPM) Abdominal wall hernia Bladder diverticulum Bladder stone History of MRSA infection Venous stasis of both lower extremities Surgical History (Updated 03/19/22 @ 18:16 by To Ayers MD) History of surgery on arm Hx of cataract extraction RIGHT EYE Hx of hernia repair Hx of tonsillectomy Status post transurethral resection of prostate Family History Mother Cancer Father Cancer Other CAD (coronary artery disease) Diabetes Social History Smoking and tobacco status: former smoker Second hand smoke exposure: Yes Alcohol intake: never History of recent travel: No Vitals/I&O/Wt Last Vital Signs Temp 98.2 F 03/20/22 15:53 Pulse 54 L 03/20/22 15:53 Resp 16 03/20/22 15:53 BP 108/71 03/20/22 15:53 Pulse Ox 99 03/20/22 15:53 O2 Del Method 03/20/22 15:53 03/20/22 03/20/22 03/20/22 06:59 14:59 22:59 Intake Total 540 / 1610 530 / 530 Output Total 350 / 350 400 / 400 250 / 650 Balance 190 / 1260 130 / 130 -250 / -120 Weight last 48 hrs Weight 155 lb 14.4 oz Weight 155 lb Weight 155 lb Physical Exam Narrative: GENERAL: Patient is alert and oriented ?3 and in no acute distress. The following is a focused bilateral lower extremity exam. VASCULAR: Dorsalis pedis palpable +2 bilaterally, posterior tibial arteries palpable +2. Capillary refill time less than 3 seconds to the distal hallux bilaterally. Calf is supple and nontender proximally and distally. Diminished hair growth at the dorsal distal digits bilaterally. NEUROLOGICAL: Protective sensation intact 7/10 sites, tested with [place] Kody monofilament to bilateral feet. DERMATOLOGICAL: [place] grade 2 wound left medial malleolus measures 10.5 cm x 8.5 cm x 0.2 cm. Wound has fiber granular base, serous drainage. Indurated skin with fibrosing at the left leg. Erythema localized to the distal one third left leg medially extending to the heel.. No proximal lymphangitic streaking. No purulence. MUSCULOSKELETAL: Wound at the left lower extremity demonstrates tenderness to palpation. No soft tissue crepitus on palpation at left leg integument. Muscle strength 5 out of 5 in all 3 planes to the bilateral foot and ankle. Data 03/20/22 05:03 03/20/22 05:03 Micro: Microbiology 03/19/22 16:20 Blood Culture - Preliminary Blood NEGATIVE TO DATE 03/19/22 16:10 Blood Culture - Preliminary Blood NEGATIVE TO DATE 03/19/22 22:29 MRSA Culture - Final Nose 03/19/22 22:29 Bacterial Antigens - Final Urine Kidney 03/19/22 22:29 Legionella Urinary Antigen - Final Urine,Voided A&P Assessment and plan (1) Venous stasis ulcer of left ankle: Qualifiers: Varicose vein presence: with varicose veins Non-pressure ulcer stage: with fat layer exposed Qualified Code(s): I83.023 - Varicose veins of left lower extremity with ulcer of ankle; L97.322 - Non-pressure chronic ulcer of left ankle with fat layer exposed (2) Left leg cellulitis: (3) Lipodermatosclerosis of left lower extremity: Plan Pleasant 76-year-old male with venous insufficiency ulceration, cellulitis and lipodermatosclerosis to the left medial malleolus. Wound has been longstanding, initially began in 1990. Presented to emergency department after having failed ciprofloxacin outpatient, wound culture 02/25/2022 significant for Pseudomonas. Duplex scan negative for DVT. Ankle x-ray negative for bony destruction, soft tissue of emphysema or foreign body. Significant improvement on empiric IV antibiotics, subsiding erythema. Patient is afebrile, no leukocytosis, wound has fiber granular base, does not probe to tendon, capsule or bone. No plans for surgical debridement during this hospitalization given his improvement to antibiotic therapy and no deep structures exposed. Will perform wound care dressing changes daily. Patient has +2 palpable pedal pulses, plan on utilizing a 2 layer wrap for edema Santyl as the primary wound dressing for enzymatic debridement with goals of improving granular base. I will perform dressing change daily during this hospitalization with plans to transition back to the wound care clinic at discharge. Coding Level of Care Code Acute Customer Consulting Manager for [facility] F[facility] Diagnoses Venous stasis ulcer of left ankle I83.023; L97.322 Varicose vein presence: with varicose veins Non-pressure ulcer stage: with fat layer exposed Left leg cellulitis L03.116 Lipodermatosclerosis of left lower extremity I83.12
--- NOTE | 2022-03-20 18:14 | USCV_ITS ---
Jose Weldon Age: 76 Gender: M : 1945 Exam Date: 03/20/2022 01:35 Ordering Phys: To Ayers MD Technologist: BETHANY Exam Location: [facility] [place] Indication: non-healing large 6cm ulcer on medial LEFT ankle. non-smoker. no DM Risk Factors: non-healing large 6cm ulcer on medial LEFT ankle. non-smoker. no DM Previous Vascular Surgery: None RIGHT LEFT BP: 138.0 / BP: 136.0/ 0 0 Waveform Velocity (cm/s) Velocity (cm/s) Waveform Triphasic 159.8 Iliac Prox 140.3 Triphasic Triphasic 133.5 Iliac Mid 126.3 Triphasic Triphasic 131.6 Iliac Distal 115.1 Triphasic Triphasic 114.7 CURATORIAL SPECIALIST 129.0 Triphasic Triphasic 118.0 SFA Prox 97.1 Triphasic Triphasic 119.1 SFA Mid 141.1 Biphasic Triphasic 80.5 SFA Dist 144.4 Triphasic Triphasic 116.9 POP 164.3 Biphasic Triphasic 94.8 PIPE SMOKER MACHINE OPERATOR 135.4 Biphasic Triphasic 91.9 DPA 81.5 Biphasic 1.1 COLE 1.1 FINDINGS Mild diffuse plaque in the iliac and femoral arteries bilaterally Resting COLE 1.1 laterally. Normal Doppler velocities and waveforms bilaterally CONCLUSIONS 1. Normal resting ABIs bilaterally with patent above-knee and below-knee vessels 2. Mild diffuse plaques bilaterally. No significant arterial obstruction, based on the above findings Dr Cecilio Rios MD [facility] (Electronically Signed) Final Date: 20 March 2022 21:33 S
[2022-03-20 20:33] LABS: Glucose Point of Care 124 mg/dL (70-110)
--- NOTE | 2022-03-20 21:00 | PC.NURSE ---
Patient complained of 8/10 pain after previous wound dressing change. When offered hydrocodone, patient stated that he believed he might have an allergy to it,despite it not being on patient's allergy list. Patient stated that last time he took a hydrocodone, that he got diaphoretic, got chills, and felt like his mind went to Nick and [place]. Having only Tylenol and hydrocodone as pain management options on the MAR, this nurse informed Dr Zuniga of the situation via telephone as well as last vitals. Dr Zuniga stated to administer hydrocodone.
[2022-03-20] MEDS: acetaminophen 325 mg Tablet 650 MG PO (21:07)
--- NOTE | 2022-03-20 21:13 | PC.NURSE ---
Patient refused hydrocodone. Tylenol administered.
[2022-03-21] VITALS (7 sets, daily range): BP systolic 112–127; BP diastolic 61–77; PULSE 52–86; RESP 14–18; TEMP 36.6–36.8; O2SAT 96–98
[2022-03-21] MEDS: piperacillin-tazobactam 3.375 GM in sodium chloride 0.9% (plus) 50 ML IV ×3 (00:03→18:08)
[2022-03-21] MEDS: acetaminophen 325 mg Tablet 650 MG PO ×2 (04:11→21:42)
[2022-03-21 05:12] LABS: Vancomycin Trough 12.7 ug/mL (10-15)
[2022-03-21] MEDS: vancomycin 1,000 MG in sodium chloride 0.9% 250 ML 250 MG IV ×2 (05:30→17:14)
[2022-03-21] MEDS: heparin 5,000 unit/mL INJ 1 mL 5000 UNIT SUBCUT ×2 (08:05→21:32)
[2022-03-21] MEDS: aspirin 81 mg EC Tablet PO (08:06)
[2022-03-21] MEDS: famotidine 20 mg Tablet PO ×2 (08:06→17:14)
[2022-03-21] MEDS: multivitamin therapeutic Tablet 1 TAB PO (08:06)
--- NOTE | 2022-03-21 13:37 | PM.PN ---
Subjective Subjective: No acute vents overnight. Has remained hemodynamically stable and afebrile. States feet seems to be doing better. States pain in the leg is also reducing. Vitals/I&O/Wt Last Vital Signs Temp 97.9 F 03/21/22 12:00 Pulse 86 03/21/22 12:00 Resp 18 03/21/22 12:00 BP 124/76 03/21/22 12:00 Pulse Ox 98 03/21/22 12:00 O2 Del Method 03/21/22 12:00 03/20/22 03/21/22 03/21/22 22:59 06:59 14:59 Intake Total 300 / 830 300 / 1130 50 / 50 Output Total 650 / 1050 500 / 1550 900 / 900 Balance -350 / -220 -200 / -420 -850 / -850 Weight last 48 hrs Weight 72.257 kg Weight 72.257 kg Weight 70.715 kg Weight 70.307 kg Weight 70.307 kg Physical Exam Narrative: General: No acute distress, AO x3 HEENT: PERRLA, pupils bilaterally equal and reactive Chest: Normal vesicular breath sounds, no added sounds, equal good air entry bilaterally CVS: S1-S2 regular, no murmurs, no tachycardia, no gallops, no rubs Abdomen: Soft, nontender, no organomegaly, bowel sounds present Neuro: No focal deficits, no facial deformity, AO x3, power 5/5 in all limbs Extremity: Left lower leg and foot erythematous, warm to touch, nonhealing ulcer present on medial ankle elliptical in shape with pink to white color base with serosanguineous discharge. Area of erythema and tenderness reducing than yesterday and on day of admission Data 03/20/22 05:03 03/20/22 05:03 Micro: Microbiology 03/19/22 16:20 Blood Culture - Preliminary Blood NEGATIVE TO DATE 03/19/22 16:10 Blood Culture - Preliminary Blood NEGATIVE TO DATE 03/19/22 22:29 MRSA Culture - Final Nose 03/19/22 22:29 Bacterial Antigens - Final Urine Kidney A&P Assessment and plan (1) Cellulitis: Along with nonhealing chronic ulcer of left lower leg around the ankle. Most likely chronic venous stasis. Failure of outpatient treatment with oral ciprofloxacin. Peripheral artery disease ruled out with a normal COLE on arterial duplex. History of MRSA infection in the past. MRSA swab negative. Blood culture pending. Wound cultures have chronically grown Pseudomonas. Sensitivities noted. Continue with vancomycin and Zosyn. Appreciate Dr. Garcia's recommendation. Plan for ulcers base biopsy to rule out malignancy. Patient is agreeable to the same. Continue with wound care. (2) Nonhealing ulcer of left lower extremity: (3) Vascular insufficiency of extremity: (4) History of MRSA infection: (5) Failure of outpatient treatment: Plan Continue other chronic medication. Full code. Famotidine for PUD prophylaxis. Heparin 5000 every 12 hourly for DVT prophylaxis Cardiac diet. Attestations Medical Necessity Statement*: Requires further hospitalization for management of cellulitis and nonhealing ulcer of the left medial malleolus Time Spent in Patient Care: Greater than 35 minutes Coding Level of Care Code Acute Personal Lines Account Executive for [facility] Diagnoses Cellulitis L03.90 Nonhealing ulcer of left lower extremity L97.929 Vascular insufficiency of extremity I99.8 History of MRSA infection Z86.14 Failure of outpatient treatment Z78.9
[2022-03-21] MEDS: docusate sodium 100 mg Capsule PO (21:33)
--- NOTE | 2022-03-21 22:08 | PC.NURSE ---
Medication waste: The patient refused to take the hydrocodone due to past experience, after being told twice what the medication was and scanning it. Medication was wasted with SPENCER Gaviria.
[2022-03-22] VITALS: BP 136/79; PULSE 69; RESP 17; TEMP 37; O2SAT 96
[2022-03-22] MEDS: piperacillin-tazobactam 3.375 GM in sodium chloride 0.9% (plus) 50 ML IV ×3 (01:35→18:12)
[2022-03-22 04:00] VITALS: BP 134/74; PULSE 58; RESP 16; TEMP 36.7; O2SAT 97
[2022-03-22 04:22] LABS: Basophils # 0.1 10^3/uL (0.0-0.1); Basophils % 1.2 %; Eosinophils # 0.6 10^3/uL (0.0-0.8); Eosinophils % 9.5 %; Hematocrit 33.9 % (42.0-52.0); Hemoglobin 10.8 g/dL (11.7-16.6); Lymphocytes # 1.3 10^3/uL (0.8-4.8); Lymphocytes % 22.6 %; Mean Corpuscular HGB Conc 31.9 g/dL (30.0-36.0); Mean Corpuscular Hemoglobin 29.9 pg (28.0-34.0); Mean Corpuscular Volume 93.9 fl (80-94); Monocytes # 0.8 10^3/uL (0.2-0.9); Monocytes % 13.5 %; Neutrophils # 3.06 10^3/uL (1.8-7.7); Neutrophils % 52.9 %; Nucleated Red Blood Cells % 0 %; Platelet Count 258 10^3/cmm (130-400); Red Blood Count 3.61 10^6/uL (4.1-5.3); Red Cell Distribution Width 14.1 % (12.1-15.1); White Blood Count 5.8 10^3/uL (4.0-10.0)
[2022-03-22 05:10] LABS: Alanine Aminotransferase 9 U/L (0-41); Albumin Level 3.1 g/dL (3.5-5.2); Alkaline Phosphatase 113 U/L (40-130); Aspartate Amino Transferase 14 U/L (0-40); Blood Urea Nitrogen 15 mg/dL (8-23); Calcium 8.5 mg/dL (8.5-10.5); Carbon Dioxide 26 mmol/L (22-29); Chloride 107 mmol/L (98-107); Globulin 2.2 g/dL (1.3-4.6); Glucose 94 mg/dL (65-115); Osmolality Calculated 291 mOsm/kg (285-295); Sodium 140 mmol/L (136-145); Total Bilirubin 0.2 mg/dL (0.15-1.2); Total Protein 5.3 g/dL (6.6-8.7)
[2022-03-22] MEDS: vancomycin 1,000 MG in sodium chloride 0.9% 250 ML 250 MG IV ×2 (06:21→16:51)
[2022-03-22 07:52] VITALS: BP 138/78; PULSE 58; RESP 18; TEMP 36.6; O2SAT 97
[2022-03-22] MEDS: aspirin 81 mg EC Tablet PO (08:24)
[2022-03-22] MEDS: famotidine 20 mg Tablet PO ×2 (08:24→16:51)
[2022-03-22] MEDS: multivitamin therapeutic Tablet 1 TAB PO (08:24)
[2022-03-22] MEDS: heparin 5,000 unit/mL INJ 1 mL 5000 UNIT SUBCUT ×2 (08:24→20:49)
[2022-03-22] MEDS: acetaminophen 325 mg Tablet 650 MG PO ×2 (08:57→20:48)
[2022-03-22 11:39] VITALS: BP 142/79; PULSE 87; RESP 18; TEMP 36.6; O2SAT 98
--- NOTE | 2022-03-22 14:53 | PM.PN ---
Subjective Subjective: No acute vents overnight. Patient denies any nausea vomiting, headache. States feeling better. Denies any changes in the feet. Complaining of constipation today. Vitals/I&O/Wt Last Vital Signs Temp 97.8 F 03/22/22 11:39 Pulse 87 03/22/22 11:39 Resp 18 03/22/22 11:39 BP 142/79 03/22/22 11:39 Pulse Ox 98 03/22/22 11:39 O2 Del Method 03/22/22 11:39 03/21/22 03/22/22 03/22/22 22:59 06:59 14:59 Intake Total 1260 / 1550 50 / 1600 1460 / 1460 Output Total 300 / 1200 1000 / 1000 Balance 960 / 350 50 / 400 460 / 460 Weight last 48 hrs Weight 69.853 kg Weight 72.257 kg Weight 72.257 kg Physical Exam Narrative: General: No acute distress, AO x3 HEENT: PERRLA, pupils bilaterally equal and reactive Chest: Normal vesicular breath sounds, no added sounds, equal good air entry bilaterally CVS: S1-S2 regular, no murmurs, no tachycardia, no gallops, no rubs Abdomen: Soft, nontender, no organomegaly, bowel sounds present Neuro: No focal deficits, no facial deformity, AO x3, power 5/5 in all limbs Extremity: Left lower leg and foot erythematous, warm to touch, nonhealing ulcer present on medial ankle elliptical in shape with pink to white color base with serosanguineous discharge. Area of erythema and tenderness reducing than yesterday and on day of admission Data 03/22/22 03:55 03/22/22 03:55 A&P Assessment and plan (1) Cellulitis: Along with nonhealing chronic ulcer of left lower leg around the ankle. Most likely chronic venous stasis. Failure of outpatient treatment with oral ciprofloxacin. Peripheral artery disease ruled out with a normal COLE on arterial duplex. History of MRSA infection in the past. MRSA swab negative. Blood culture so far negative. Wound cultures have chronically grown Pseudomonas. Sensitivities noted. Continue with vancomycin and Zosyn. Given failure of oral therapy as an outpatient we will plan to finish overall 5-day course of IV antibiotics prior to discharge on oral antibiotics. Appreciate Dr. Garcia's recommendation. Plan for ulcers base biopsy to rule out malignancy. Patient is agreeable to the same. Continue with wound care. (2) Nonhealing ulcer of left lower extremity: (3) Vascular insufficiency of extremity: (4) History of MRSA infection: (5) Failure of outpatient treatment: Plan Continue other chronic medication. Full code. Famotidine for PUD prophylaxis. Heparin 5000 every 12 hourly for DVT prophylaxis Cardiac diet. Attestations Medical Necessity Statement*: Requires further hospitalization for management of resolution of cellulitis with chronic nonhealing open ulcer while patient needs IV antibiotics for further management Time Spent in Patient Care: 16 - 35 minutes Coding Level of Care Code Acute Field Superintendent for [facility] Fwd Diagnoses Cellulitis L03.90 Nonhealing ulcer of left lower extremity L97.929 Vascular insufficiency of extremity I99.8 History of MRSA infection Z86.14 Failure of outpatient treatment Z78.9
[2022-03-22 16:00] VITALS: BP 141/74; PULSE 88; RESP 18; TEMP 37.1; O2SAT 98
[2022-03-22] MEDS: magnesium hydroxide 30 mL UDC PO (16:17)
[2022-03-22] MEDS: lidocaine 1% INJ 20 mL MDV (mL) 10 ML INTRADERMA (16:17)
[2022-03-22] MEDS: docusate sodium 100 mg Capsule PO (16:51)
[2022-03-22 20:00] VITALS: BP 145/80; PULSE 69; RESP 20; TEMP 36.4; O2SAT 95
[2022-03-23] VITALS: BP 148/81; PULSE 60; RESP 17; TEMP 36.9; O2SAT 96
[2022-03-23] MEDS: piperacillin-tazobactam 3.375 GM in sodium chloride 0.9% (plus) 50 ML IV ×3 (01:49→17:25)
[2022-03-23 03:51] VITALS: BP 133/74; PULSE 61; RESP 16; TEMP 36.6; O2SAT 95
[2022-03-23 06:27] LABS: Vancomycin Trough 12.2 ug/mL (10-15)
--- NOTE | 2022-03-23 06:33 | P.PN_ITS ---
Subjective Subjective: Patient seen bedside, denies any acute events overnight. Denies any pain to the left lower extremity. Patient denies any subjective nausea, vomiting, fever, chills, shortness of breath or chest pain. Vitals/I&O/Wt Last Vital Signs Temp 97.8 F 03/23/22 03:51 Pulse 61 03/23/22 03:51 Resp 16 03/23/22 03:51 BP 133/74 03/23/22 03:51 Pulse Ox 95 03/23/22 03:51 O2 Del Method 03/22/22 16:00 03/22/22 03/22/22 03/23/22 14:59 22:59 06:59 Intake Total 1460 / 1460 780 / 2240 530 / 2770 Output Total 1000 / 1000 400 / 1400 600 / 2000 Balance 460 / 460 380 / 840 -70 / 770 Weight last 48 hrs Weight 159 lb 3.2 oz Weight 154 lb Physical Exam Narrative: GENERAL: Patient is alert and oriented ?3 and in no acute distress. The following is a focused bilateral lower extremity exam. VASCULAR: Dorsalis pedis palpable +2 bilaterally, posterior tibial arteries palpable +2. Capillary refill time less than 3 seconds to the distal hallux bilaterally. Calf is supple and nontender proximally and distally. Diminished hair growth at the dorsal distal digits bilaterally. NEUROLOGICAL: Protective sensation intact 7/10 sites, tested with [place] Kody monofilament to bilateral feet. DERMATOLOGICAL: De [place]a grade 2 wound left medial malleolus measures 10.5 cm x 8.5 cm x 0.2 cm. Wound has fiber granular base, serous drainage. Indurated skin with fibrosing at the left leg. Erythema localized to the distal one third left leg medially extending to the heel.. No proximal lymphangitic streaking. No purulence. MUSCULOSKELETAL: Wound at the left lower extremity demonstrates tenderness to palpation. No soft tissue crepitus on palpation at left leg integument. Muscle strength 5 out of 5 in all 3 planes to the bilateral foot and ankle. Data 03/22/22 03:55 03/22/22 03:55 A&P Assessment and plan (1) Venous stasis ulcer of left ankle: I recommended a punch biopsy of the patient's wound to rule out malignancy as this has been a longstanding wound and open for the past several years. Patient is agreeable. Local anesthetic to the left leg in a proximal V block fashion with 1% lidocaine plain was performed total of 6 cc of lidocaine utilized. Once anesthesia was established a 4 mm punch biopsy was performed x2 within the wound bed and sent to pathology for review. Dressing consisting of alginate, sterile 4 x 4 gauze, Kerlix and Soy wrap. Qualifiers: Varicose vein presence: with varicose veins Non-pressure ulcer stage: with fat layer exposed Qualified Code(s): I83.023 - Varicose veins of left lower extremity with ulcer of ankle; L97.322 - Non-pressure chronic ulcer of left ankle with fat layer exposed (2) Left leg cellulitis: (3) Lipodermatosclerosis of left lower extremity: Plan Pleasant 76-year-old male with venous insufficiency ulceration, cellulitis and lipodermatosclerosis to the left medial malleolus. Wound has been longstanding, initially began in 1990. Presented to emergency department after having failed ciprofloxacin outpatient, wound culture 02/25/2022 significant for Pseudomonas. Duplex scan negative for DVT. Ankle x-ray negative for bony destruction, soft tissue of emphysema or foreign body. * Resolved cellulitis left lower extremity * Patient okay for discharge from podiatry standpoint * Follow-up in wound care clinic for continued care * Punch biopsy of wound bed for millimeter punch x2 performed under local anesthetic and sent to pathology to rule out malignancy Attestations Medical Necessity Statement*: Cellulitis left leg Coding Level of Care Code Acute Mill Labor Supervisor for [facility] Fwd Diagnoses Venous stasis ulcer of left ankle I83.023; L97.322 Varicose vein presence: with varicose veins Non-pressure ulcer stage: with fat layer exposed Left leg cellulitis L03.116 Lipodermatosclerosis of left lower extremity I83.12
[2022-03-23] MEDS: vancomycin 1,000 MG in sodium chloride 0.9% 250 ML 250 MG IV ×2 (06:34→16:30)
[2022-03-23 08:00] VITALS: BP 129/86; PULSE 63; RESP 16; TEMP 36.5; O2SAT 95
[2022-03-23] MEDS: multivitamin therapeutic Tablet 1 TAB PO (09:43)
[2022-03-23] MEDS: aspirin 81 mg EC Tablet PO (09:43)
[2022-03-23] MEDS: famotidine 20 mg Tablet PO ×2 (09:43→17:26)
[2022-03-23] MEDS: docusate sodium 100 mg Capsule PO ×2 (09:43→17:26)
[2022-03-23] MEDS: heparin 5,000 unit/mL INJ 1 mL 5000 UNIT SUBCUT ×2 (10:26→20:45)
[2022-03-23 12:00] VITALS: BP 129/66; PULSE 63; RESP 15; TEMP 36.5; O2SAT 96
[2022-03-23] MEDS: acetaminophen 325 mg Tablet 650 MG PO ×2 (13:02→20:45)
[2022-03-23 16:00] VITALS: BP 99/57; PULSE 63; RESP 16; TEMP 36.3; O2SAT 96
--- NOTE | 2022-03-23 16:03 | PM.PN ---
Subjective Subjective: No acute events overnight. Patient has remained hemodynamically stable and afebrile. Underwent punch biopsies yesterday. States foot seems to be getting better. Vitals/I&O/Wt Last Vital Signs Temp 97.7 F 03/23/22 12:00 Pulse 63 03/23/22 12:00 Resp 15 03/23/22 12:00 BP 129/66 03/23/22 12:00 Pulse Ox 96 03/23/22 12:00 O2 Del Method 03/23/22 12:00 03/23/22 03/23/22 03/23/22 06:59 14:59 22:59 Intake Total 530 / 2770 1020 / 1020 Output Total 600 / 2000 825 / 825 Balance -70 / 770 1020 / 1020 -825 / 195 Weight last 48 hrs Weight 72.212 kg Weight 69.853 kg Physical Exam Narrative: General: No acute distress, AO x3 HEENT: PERRLA, pupils bilaterally equal and reactive Chest: Normal vesicular breath sounds, no added sounds, equal good air entry bilaterally CVS: S1-S2 regular, no murmurs, no tachycardia, no gallops, no rubs Abdomen: Soft, nontender, no organomegaly, bowel sounds present Neuro: No focal deficits, no facial deformity, AO x3, power 5/5 in all limbs Extremity: Left lower leg and foot erythematous, warm to touch, nonhealing ulcer present on medial ankle elliptical in shape with pink to white color base with serosanguineous discharge. Area of erythema and tenderness reducing than yesterday and on day of admission Data 03/22/22 03:55 03/22/22 03:55 A&P Assessment and plan (1) Cellulitis: Along with nonhealing chronic ulcer of left lower leg around the ankle. Most likely chronic venous stasis. Failure of outpatient treatment with oral ciprofloxacin. Peripheral artery disease ruled out with a normal COLE on arterial duplex. History of MRSA infection in the past. MRSA swab negative. Blood culture so far negative. Wound cultures have chronically grown Pseudomonas. Sensitivities noted. Continue with vancomycin and Zosyn. Given failure of oral therapy as an outpatient we will plan to finish overall 5-day course of IV antibiotics prior to discharge on oral antibiotics. Appreciate Dr. Garcia's recommendation. Plan for ulcers base biopsy to rule out malignancy. Patient is agreeable to the same. Continue with wound care. (2) Nonhealing ulcer of left lower extremity: (3) Vascular insufficiency of extremity: (4) History of MRSA infection: (5) Failure of outpatient treatment: Plan Continue other chronic medication. Full code. Famotidine for PUD prophylaxis. Heparin 5000 every 12 hourly for DVT prophylaxis Cardiac diet. Plan for the day: Continue with IV antibiotics. Patient will finish 5-day course of IV antibiotics in the next 24 hours. We will plan to discharge on oral antibiotics for few more days to finish 7 to 10-day course. Appreciate dietary recommendations. Punch biopsy results will be followed as an outpatient with wound care services. Wound care as per podiatry. 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
[2022-03-23 20:00] VITALS: BP 113/67; PULSE 62; RESP 18; TEMP 36.6; O2SAT 95
[2022-03-23] MEDS: lactulose oral liq 20 gm/30 mL UDC 10 GM PO (20:46)
[2022-03-24] VITALS: BP 105/64; PULSE 60; RESP 18; TEMP 36.8; O2SAT 96
[2022-03-24] MEDS: piperacillin-tazobactam 3.375 GM in sodium chloride 0.9% (plus) 50 ML IV ×2 (00:44→08:30)
[2022-03-24 04:00] VITALS: BP 109/68; PULSE 59; RESP 17; TEMP 36.8; O2SAT 96
[2022-03-24] MEDS: vancomycin 1,000 MG in sodium chloride 0.9% 250 ML 250 MG IV (05:01)
[2022-03-24 07:56] VITALS: BP 118/63; PULSE 59; RESP 16; TEMP 36.4; O2SAT 96
[2022-03-24] MEDS: heparin 5,000 unit/mL INJ 1 mL 5000 UNIT SUBCUT (08:30)
[2022-03-24] MEDS: docusate sodium 100 mg Capsule PO (08:31)
[2022-03-24] MEDS: multivitamin therapeutic Tablet 1 TAB PO (08:31)
[2022-03-24] MEDS: famotidine 20 mg Tablet PO (08:31)
[2022-03-24] MEDS: aspirin 81 mg EC Tablet PO (08:31)
[2022-03-24 12:00] VITALS: BP 115/74; PULSE 80; RESP 16; TEMP 36.3; O2SAT 96
--- NOTE | 2022-03-24 13:22 | PM.DCS ---
Discharge Providers Date of Admission: 03/19/22 17:32 Date of Discharge: March 24, 2022 Attending Provider at Admission: To Ayers MD Attending Provider at Discharge: To Ayers MD Primary Care Provider: BLAKE Burgos Diagnoses at Discharge Discharge Diagnosis (1) Cellulitis: Status: Acute (2) Nonhealing ulcer of left lower extremity: Status: Acute (3) Vascular insufficiency of extremity: Status: Acute (4) History of MRSA infection: Status: Acute (5) Failure of outpatient treatment: Status: Acute Reason for Visit Reason for Visit: left leg pain Hospital Course Hospital Course Jose Weldon is a 76 year old male with past medical history of chronic lower limb cellulitis because of peripheral artery disease who follows up at wound care clinic was sent in today from wound care clinic because of failure of outpatient treatment with ciprofloxacin.? As per the patient his wound was stable until 10 days ago when he started noticing more drainage along with redness of the leg for which he when he went to wound care services he underwent debridement and was started on ciprofloxacin.? Today when he went for follow-up because of no improvement and worsening of redness he was sent back to the ER for further evaluation.? Patient otherwise denies any purulent discharge, bloody discharge, fever, nausea or vomiting, headache, recent injury to the foot. Patient with hospital further evaluation and management. He was started on broad-spectrum antibiotics given failure of outpatient treatment. His blood cultures remain negative during hospitalization. He was started on antibiotics as per culture history of MRSA in the past and Pseudomonas from old wound cultures. Cellulitis resolved and he finished 5-day course of IV antibiotics. Podiatry was consulted for wound care changes. He underwent punch biopsies to rule out skin malignancy given chronic nature of the ulcers. He is to follow-up with wound care as an outpatient for further evaluation and results of punch biopsies. He is to continue with linezolid and Levaquin for 3 more days. Physical Exam Narrative: General: No acute distress, AO x3 HEENT: PERRLA, pupils bilaterally equal and reactive Chest: Normal vesicular breath sounds, no added sounds, equal good air entry bilaterally CVS: S1-S2 regular, no murmurs, no tachycardia, no gallops, no rubs Abdomen: Soft, nontender, no organomegaly, bowel sounds present Neuro: No focal deficits, no facial deformity, AO x3, power 5/5 in all limbs Extremity: Left lower leg and foot erythematous, warm to touch, nonhealing ulcer present on medial ankle elliptical in shape with pink to white color base with serosanguineous discharge. Area of erythema and tenderness reducing than yesterday and on day of admission Discharge Data Studies Completed and Pending Completed Studies During Hospitalization Category Date Time Status XR ankle LT min 3V* [id number] Stat Exams 03/19/22 16:36 [place] [id number] Stat Ultrasound 03/20/22 18:14 Completed Pending at discharge Category Date Time Status Blood Culture Stat Lab 03/19/22 16:20 Results Pathology: Surgical [PTH] Routine Pth 03/22/22 16:44 Received Radiology Impressions Ankle X-Ray 03/19/22 16:36 IMPRESSION: Soft tissue abnormality otherwise negative left ankle. Laboratory Results WBC 5.8 10^3/uL (4.0-10.0) 03/22/22 03:55 RBC 3.61 10^6/uL (4.1-5.3) L 03/22/22 03:55 Hgb 10.8 g/dL (11.7-16.6) L 03/22/22 03:55 Hct 33.9 % (42.0-52.0) L 03/22/22 03:55 MCV 93.9 fl (80-94) 03/22/22 03:55 MCH 29.9 pg (28.0-34.0) 03/22/22 03:55 MCHC 31.9 g/dL (30.0-36.0) 03/22/22 03:55 RDW 14.1 % (12.1-15.1) 03/22/22 03:55 Plt Count 258 10^3/cmm (130-400) 03/22/22 03:55 MPV 10.0 fL (7.4-10.4) 03/22/22 03:55 Neut % (Auto) 52.9 % 03/22/22 03:55 Lymph % (Auto) 22.6 % 03/22/22 03:55 [place] % (Auto) 13.5 % 03/22/22 03:55 Eos % (Auto) 9.5 % 03/22/22 03:55 Baso % (Auto) 1.2 % 03/22/22 03:55 Neut # (Auto) 3.06 10^3/uL (1.8-7.7) 03/22/22 03:55 Lymph # (Auto) 1.3 10^3/uL (0.8-4.8) 03/22/22 03:55 [place] # (Auto) 0.8 10^3/uL (0.2-0.9) 03/22/22 03:55 Eos # (Auto) 0.6 10^3/uL (0.0-0.8) 03/22/22 03:55 Baso # (Auto) 0.1 10^3/uL (0.0-0.1) 03/22/22 03:55 Nucleated RBC % (auto) 0 % 03/22/22 03:55 Nucleated RBCs # 0.0 /100WBC 03/22/22 03:55 ESR 7 mm/hr (0-10) 03/19/22 16:10 Sodium 140 mmol/L (136-145) 03/22/22 03:55 Potassium 4.0 mmol/L (3.5-5.1) 03/22/22 03:55 Chloride 107 mmol/L (98-107) 03/22/22 03:55 Carbon Dioxide 26 mmol/L (22-29) 03/22/22 03:55 Anion Gap 11.0 (5-19) 03/22/22 03:55 BUN 15 mg/dL (8-23) 03/22/22 03:55 Creatinine 0.8 mg/dL (0.7-1.2) 03/22/22 03:55 GFR Calculation Not Reportable 03/22/22 03:55 Glucose 94 mg/dL (65-115) 03/22/22 03:55 POC Glucose 124 mg/dL (70-110) H 03/20/22 20:30 Estimat Average Glucose 117 03/20/22 05:03 Hemoglobin A1c 5.7 % (4.0-6.0) 03/20/22 05:03 Calculated Osmolality 291 mOsm/kg (285-295) 03/22/22 03:55 Lactic Acid 1.2 mmol/L (0.5-2.2) 03/19/22 16:10 Calcium 8.5 mg/dL (8.5-10.5) 03/22/22 03:55 Phosphorus 2.9 mg/dL (2.5-4.5) 03/20/22 05:03 Magnesium 2.1 mg/dL (1.7-2.3) 03/20/22 05:03 Iron 37 ug/dL (59-158) L 03/19/22 18:39 TIBC 239 mcg/dl 03/19/22 18:39 % Saturation 15.4 % (20-50) L 03/19/22 18:39 Unsat Iron Binding 202 ug/dL (112-347) 03/19/22 18:39 Total Bilirubin 0.2 mg/dL (0.15-1.2) 03/22/22 03:55 AST 14 U/L (0-40) 03/22/22 03:55 ALT 9 U/L (0-41) 03/22/22 03:55 Alkaline Phosphatase 113 U/L (40-130) 03/22/22 03:55 C-Reactive Protein 22.6 mg/L (0.0-4.9) H 03/19/22 16:10 Total Protein 5.3 g/dL (6.6-8.7) L 03/22/22 03:55 Albumin 3.1 g/dL (3.5-5.2) L 03/22/22 03:55 Globulin 2.2 g/dL (1.3-4.6) 03/22/22 03:55 Triglycerides 64 mg/dL (0-150) 03/20/22 05:03 Cholesterol 135 mg/dL (0-200) 03/20/22 05:03 LDL Cholesterol, Calc 88 mg/dL (50-129) 03/20/22 05:03 Total VLDL Cholesterol 13 mg/dL (0-30) 03/20/22 05:03 HDL Cholesterol 34 mg/dL (60-100) L 03/20/22 05:03 Cholesterol/HDL Ratio 3.97 mg/dL (1.0-5.00) 03/20/22 05:03 Vitamin B12 682 pg/mL (232-1245) 03/19/22 18:39 Folate 5.6 ng/mL (4.5-32.2) 03/19/22 Unknown Procalcitonin 0.03 ng/mL (0-0.5) 03/19/22 18:39 TSH 1.31 uIU/mL (0.27-4.20) 03/19/22 18:39 Urine Color Yellow (Yellow) 03/19/22: Urine Appearance Clear (CLEAR) 03/19/22: Urine pH 6.5 (5-7) 03/19/22 22: Ur Specific [place] 1.015 (1.005-1.030) 03/19/22 22: Urine Protein Neg (Negative) 03/19/22: Urine Glucose (UA) Norm (Normal) 03/19/22 22: Urine Ketones Negative (Negative) 03/19/22 22: Urine Blood Neg (Negative) 03/19/22: Urine Nitrate Negative (Negative) 03/19/22 Urine Bilirubin Neg (Negative) 03/19/22: Urine Urobilinogen Norm mg/dL (Negative) 03/19/22: Ur Leukocyte Esterase Negative (Negative) 03/19/22: Vancomycin Trough 12.2 ug/mL (10-15) 03/23/22 04:35 Adenovirus (PCR) Detected (NOT DETECT) A 03/20/22 01:01 Coronavirus 229E (PCR) Not detected (NOT DETECT) 03/19/22 22: SARS-CoV-2 (PCR) Not detected (NOT DETECT) 03/19/22: Vitals Last Vital Signs Temp 97.4 F L 03/24/22 12:00 Pulse 80 03/24/22 12:00 Resp 16 03/24/22 12:00 BP 115/74 03/24/22 12:00 Pulse Ox 96 03/24/22 12:00 O2 Del Method 03/24/22 12:00 Discharge Plan Discharge Patient Disposition: Home Condition: Stable Prescriptions: New levofloxacin 500 mg tablet 500 mg PO Q24H 3 Days Qty: 3 0RF linezolid 600 mg tablet 600 mg PO BID 3 Days Qty: 6 0RF magnesium hydroxide [Milk of Magnesia] 400 mg/5 mL suspension 5 ml PO DAILY PRN (Reason: constipation) Qty: 355 0RF senna leaf extract [senna] 176 mg/5 mL syrup 10 ml PO BID PRN (Reason: constipation) Qty: 237 0RF Continued aspirin 81 mg tablet,delayed release (DR/EC) 81 mg PO DAILY Hold Instructions: Resume on 06/10/20. multivitamin Tablet 1 tab PO DAILY mecobalamin (vitamin B12) 5,000 mcg tablet,disintegrating 5,000 mcg PO DAILY acetaminophen [Tylenol Arthritis Pain] 650 mg tablet extended release 650 mg PO Q12H docusate sodium [Stool Softener] 100 mg capsule 100 mg PO DAILY PRN (Reason: Constipation) omega-3 fatty acids [Fish Oil Concentrate] 1,000 mg capsule 1,000 mg PO BID [place]elle Gummy 1.5 billion cell-1 gram tablet,chewable 1 tab PO DAILY Qty: 30 0RF fluconazole [Diflucan] 150 mg tablet 150 mg PO .COMPLEX 21 Days Qty: 3 0RF Rx Instructions: 150 mg orally once weekly on Fridays hydrocodone-acetaminophen [Victor] 5-325 mg tablet 1 tab PO Q8H PRN (Reason: pain) Qty: 8 0RF vitamin E 670 mg (1,000 unit) Capsule 670 mg PO DAILY Prostate Control 58-13-85-100 mg Capsule 1 cap PO DAILY Discontinued ciprofloxacin HCl [Cipro] 500 mg tablet 500 mg PO BID 21 Days Qty: 42 0RF Discharge Orders: Discharge Order (Routine); Ordered 03/24/22 Ordered By: To Ayers Referrals: Shelbi Chaudhary FNP [Primary Care Provider] - 1 week Discharge Diet: Usual diet Discharge Activity: Resume usual activity and Increase activity as tolerated Patient Instructions: Opioid Safety Activity Restrictions/Additional Instructions: Continue wound care as before. Continue taking linezolid and Levaquin to the antibiotics for next 3 days. Continue daily stool softeners. Discharge Attestations Time Spent in Discharge Care*: greater than 30 min Specific Discharge Activities: educating patient, discussing with pcp/other providers, discussing with immigration case manager/social workers/dc planners, documenting/other paperwork and evaluating patient/reviewing data Status at Discharge: Cognitive status at discharge: cognitively intact, Behavioral status at discharge: cooperative, Functional status at discharge: uses cane/walker, Overall status at discharge: patient is back to baseline Quality Metrics Clinical Quality Measures [ No reported AMI, CVA or VTE this stay] Coding Level of Care Code Acute Chg FW DC note Diagnoses Cellulitis L03.90 Nonhealing ulcer of left lower extremity L97.929 Vascular insufficiency of extremity I99.8 History of MRSA infection Z86.14 Failure of outpatient treatment Z78.9
[2022-03-24] MEDS: Fleet Enema 133 mL Enema PR (14:53)
== END 2022-03-24 17:10 | disposition home health service (06) | DRG 603 ==
LOC: ER 18:08 → MEDSURG 23:59
PROVIDERS: Internal Medicine; Physician Assistant; Admitting Provider Student in an Organized Health Care Education/Training Program; Emergency Provider Emergency Medicine; PCP Nurse Practitioner Family; Visit Provider Student in an Organized Health Care Education/Training Program
DX: L03.116 Cellulitis of left lower limb (principal); L97.322 Non-pressure chronic ulcer of left ankle with fat layer exposed; I83.223 Varicose veins of left lower extremity with both ulcer of ankle and inflammation; I86.8 Varicose veins of other specified sites; I87.8 Other specified disorders of veins; Z86.14 Personal history of Methicillin resistant Staphylococcus aureus infection; I73.9 Peripheral vascular disease, unspecified; Z79.82 Long term (current) use of aspirin; Z79.891 Long term (current) use of opiate analgesic; Z87.891 Personal history of nicotine dependence
CPT/HCPCS: 11042; 11045; 36415; 36416; 73610; 80053; 80061; 80202; 81003; 82607; 82746; 82962; 83036; 83540; 83550; 83605; 83735; 84100; 84145; 84443; 85025; 85651; 86140; 86403; 87040; 87449; 87635; 87641; 87798; 88304; 93925; 94664; 96365; 96367; 96372; 96375; 99285; A6197; J1644; J2270; J2543; J3370; J7050

== ENCOUNTER → 2022-03-26 15:19 | Outpatient (BNVA) | payer MEDICAID, SELFPAY | PROVIDERS: PCP Nurse Practitioner Family; Visit Provider Thoracic Surgery (Cardiothoracic Vascular Surgery) | DX: I87.2 Venous insufficiency (chronic) (peripheral) (principal); I96 Gangrene, not elsewhere classified; L97.822 Non-pressure chronic ulcer of other part of left lower leg with fat layer exposed | CPT/HCPCS: 11042; 11045 ==

== ENCOUNTER → 2022-04-03 13:57 | Outpatient (BNVA) | payer MEDICAID, SELFPAY | PROVIDERS: PCP Nurse Practitioner Family; Visit Provider Surgery | DX: I96 Gangrene, not elsewhere classified (principal); I87.2 Venous insufficiency (chronic) (peripheral); L97.822 Non-pressure chronic ulcer of other part of left lower leg with fat layer exposed | CPT/HCPCS: 11042; 11045 ==

== ENCOUNTER → 2022-04-23 15:06 | Outpatient (BNVA) | payer MEDICAID, SELFPAY | PROVIDERS: PCP Nurse Practitioner Family; Visit Provider Thoracic Surgery (Cardiothoracic Vascular Surgery) | DX: I96 Gangrene, not elsewhere classified (principal); I87.2 Venous insufficiency (chronic) (peripheral); L97.822 Non-pressure chronic ulcer of other part of left lower leg with fat layer exposed | CPT/HCPCS: 11042; 11045 ==

== ENCOUNTER → 2022-04-30 16:02 | Outpatient (BNVA) | payer MEDICAID, SELFPAY | PROVIDERS: PCP Nurse Practitioner Family; Visit Provider Thoracic Surgery (Cardiothoracic Vascular Surgery) | DX: I96 Gangrene, not elsewhere classified (principal); I87.2 Venous insufficiency (chronic) (peripheral); L97.822 Non-pressure chronic ulcer of other part of left lower leg with fat layer exposed | CPT/HCPCS: 97597; 97598 ==

== ENCOUNTER → 2022-05-07 13:48 | Outpatient (BNVA) | payer MEDICAID, SELFPAY | PROVIDERS: PCP Nurse Practitioner Family; Visit Provider Thoracic Surgery (Cardiothoracic Vascular Surgery) | DX: I96 Gangrene, not elsewhere classified (principal); I87.2 Venous insufficiency (chronic) (peripheral); L97.822 Non-pressure chronic ulcer of other part of left lower leg with fat layer exposed | CPT/HCPCS: 11042; 11045 ==

== ENCOUNTER → 2022-05-14 14:32 | Outpatient (BNVA) | payer MEDICAID, SELFPAY | PROVIDERS: PCP Nurse Practitioner Family; Visit Provider Thoracic Surgery (Cardiothoracic Vascular Surgery) | DX: I96 Gangrene, not elsewhere classified (principal); I87.2 Venous insufficiency (chronic) (peripheral); L97.822 Non-pressure chronic ulcer of other part of left lower leg with fat layer exposed | CPT/HCPCS: 11042; 11045; A6253 ==

== ENCOUNTER → 2022-05-21 13:31 | Outpatient (BNVA) | payer MEDICAID, SELFPAY | PROVIDERS: PCP Nurse Practitioner Family; Visit Provider Thoracic Surgery (Cardiothoracic Vascular Surgery) | DX: I96 Gangrene, not elsewhere classified (principal); I87.2 Venous insufficiency (chronic) (peripheral); L97.822 Non-pressure chronic ulcer of other part of left lower leg with fat layer exposed | CPT/HCPCS: 11042; 11045; A6253 ==

== ENCOUNTER → 2022-05-28 15:00 | Outpatient (BNVA) | payer MEDICAID, SELFPAY | PROVIDERS: PCP Nurse Practitioner Family; Visit Provider Thoracic Surgery (Cardiothoracic Vascular Surgery) | DX: I96 Gangrene, not elsewhere classified (principal); I87.2 Venous insufficiency (chronic) (peripheral); L97.822 Non-pressure chronic ulcer of other part of left lower leg with fat layer exposed | CPT/HCPCS: 11042; 11045; A6252 ==

== ENCOUNTER → 2022-05-31 15:38 | Outpatient (BNVA) | payer MEDICAID, SELFPAY | PROVIDERS: PCP Nurse Practitioner Family; Referring Provider Nurse Practitioner Family; Visit Provider Orthopaedic Surgery | DX: M54.30 Sciatica, unspecified side (principal); M48.062 Spinal stenosis, lumbar region with neurogenic claudication | CPT/HCPCS: 72110; 99204 ==

== ENCOUNTER → 2022-06-04 13:54 | Outpatient (BNVA) | payer MEDICAID, SELFPAY | PROVIDERS: PCP Nurse Practitioner Family; Visit Provider Thoracic Surgery (Cardiothoracic Vascular Surgery) | DX: I96 Gangrene, not elsewhere classified (principal); I87.2 Venous insufficiency (chronic) (peripheral); L97.822 Non-pressure chronic ulcer of other part of left lower leg with fat layer exposed | CPT/HCPCS: 11042; 11045; A6252 ==

== ENCOUNTER → 2022-06-11 14:01 | Outpatient (BNVA) | payer MEDICAID, SELFPAY | PROVIDERS: PCP Nurse Practitioner Family; Visit Provider Thoracic Surgery (Cardiothoracic Vascular Surgery) | DX: I96 Gangrene, not elsewhere classified (principal); I87.2 Venous insufficiency (chronic) (peripheral); L97.822 Non-pressure chronic ulcer of other part of left lower leg with fat layer exposed | CPT/HCPCS: 11042; 11045; A6252 ==

== ENCOUNTER → 2022-06-18 13:12 | Outpatient (BNVA) | payer MEDICAID, SELFPAY | PROVIDERS: PCP Nurse Practitioner Family; Visit Provider Thoracic Surgery (Cardiothoracic Vascular Surgery) | DX: I96 Gangrene, not elsewhere classified (principal); I87.2 Venous insufficiency (chronic) (peripheral); L97.422 Non-pressure chronic ulcer of left heel and midfoot with fat layer exposed | CPT/HCPCS: 11042; 11045; A6252 ==

== ENCOUNTER → 2022-06-25 16:06 | Outpatient (BNVA) | payer MEDICAID, SELFPAY | PROVIDERS: PCP Nurse Practitioner Family; Visit Provider Thoracic Surgery (Cardiothoracic Vascular Surgery) | DX: I96 Gangrene, not elsewhere classified (principal); I87.2 Venous insufficiency (chronic) (peripheral); L97.822 Non-pressure chronic ulcer of other part of left lower leg with fat layer exposed | CPT/HCPCS: 97597; 97598; A6253 ==

== ENCOUNTER 2022-07-03 15:35 | Outpatient (CLI) | payer MEDICAID, SELFPAY ==
--- NOTE | 2022-07-03 15:15 | MR_ITS ---
WS: [id number] MRI LUMBAR SPINE NONCONTRAST HISTORY: back pain, sciatica COMPARISON: Lumbar spine radiograph 05/31/2022 TECHNIQUE: Sagittal and axial multisequence imaging is submitted. Advanced degenerative disc disease and curvature throughout the spine. Straightening of the normal lumbar lordosis. Mild RIGHT curvature. Moderate disc space narrowing and desiccation throughout the lumbar spine. No acute fractures. Mild d egenerative changes along the L4 and L5 vertebral endplates to the LEFT. Conus terminates normally at L1-2 disc level. L1-L2: Very slight anterolisthesis of L1. Mild annular disc bulging with a LEFT paracentral disc prot rusion causing mild deformity of the thecal sac. Mild ligamentum flavum and facet arthritis. Mild sami ateral subarticular recess and foraminal narrowing. L2-L3: 2 mm retrolisthesis of L2 with annular disc bulging and moderate ligamentum flavum and facet a rthritis. Disc bulging versus small LEFT foraminal disc protrusion. Deformity of the ventral thecal s ac with mild central and bilateral subarticular recess and LEFT foraminal stenosis. Mild encroachment upon the traversing L3 nerve roots. L3-L4: Mild annular disc bulge with severe ligamentum flavum and facet joint arthritis. RIGHT foramin al disc protrusion. Small central disc protrusion. Severe central and bilateral subarticular recess e ncroachment upon the traversing L4 nerve roots. There is also moderate foraminal stenosis, RIGHT grea ter than LEFT. L4-L5: Diffuse disc bulging and osteophytic ridging. Severe ligamentum flavum and facet joint arthrit is. Complete effacement of CSF. Suspect is probably central disc protrusion contributing to the steno sis. Severe central, bilateral subarticular recess and foraminal stenosis. There is disc and osteophy te encroachment upon the L4 and L5 nerve roots, bilateral. L5-S1: Diffuse osteophytic ridging. Mild disc bulging. Bilateral facet joint arthritis. Mild central stenosis with moderate to severe subarticular recess and severe bilateral foraminal stenosis. Most si gnificant stenosis involving the exiting L5 nerve roots. RIGHT renal cyst. MR/MR lumbar spine wo con* [id number] IMPRESSION: 1. Severe central, bilateral subarticular recess and foraminal stenosis at L4- 5. Significant encroachment upon the L4 and L5 nerve roots. 2. Severe bilateral foraminal stenosis at L5-S1 with also moderate to severe e ncroachment upon the exiting L5 nerve roots. 3. Severe central and bilateral subarticular recess stenosis at L3-4 with mode rate foraminal stenosis, RIGHT greater than LEFT. 4. Mild central, bilateral subarticular recess and LEFT foraminal stenosis at L2-3. Mild encroachment upon the traversing L3 nerve roots. 5. Mild bilateral subarticular recess and foraminal stenosis at L1-2.
== END 2022-07-03 15:36 | disposition home or self-care (01) ==
LOC: RAD 15:37
PROVIDERS: PCP Nurse Practitioner Family; Visit Provider Orthopaedic Surgery
DX: M54.30 Sciatica, unspecified side (principal); M48.061 Spinal stenosis, lumbar region without neurogenic claudication; M48.07 Spinal stenosis, lumbosacral region
CPT/HCPCS: 11042; 11045; 72148; A6252

== ENCOUNTER → 2022-07-04 14:23 | Outpatient (BNVA) | payer MEDICAID, SELFPAY | PROVIDERS: PCP Nurse Practitioner Family; Visit Provider Thoracic Surgery (Cardiothoracic Vascular Surgery) | DX: I96 Gangrene, not elsewhere classified (principal); I87.2 Venous insufficiency (chronic) (peripheral); L97.822 Non-pressure chronic ulcer of other part of left lower leg with fat layer exposed | CPT/HCPCS: 11042; 11045; A6253 ==

== ENCOUNTER → 2022-07-09 13:22 | Outpatient (BNVA) | payer MEDICAID, SELFPAY | PROVIDERS: PCP Nurse Practitioner Family; Visit Provider Thoracic Surgery (Cardiothoracic Vascular Surgery) | DX: I96 Gangrene, not elsewhere classified (principal); I87.2 Venous insufficiency (chronic) (peripheral); L97.822 Non-pressure chronic ulcer of other part of left lower leg with fat layer exposed | CPT/HCPCS: 11042; 11045; A6252 ==

== ENCOUNTER → 2022-07-16 13:15 | Outpatient (BNVA) | payer MEDICAID, SELFPAY | PROVIDERS: PCP Nurse Practitioner Family; Visit Provider Thoracic Surgery (Cardiothoracic Vascular Surgery) | DX: I87.8 Other specified disorders of veins (principal); L97.822 Non-pressure chronic ulcer of other part of left lower leg with fat layer exposed | CPT/HCPCS: 11042; 11045; A6252 ==

== ENCOUNTER → 2022-07-17 14:16 | Outpatient (BNVA) | payer MEDICAID, SELFPAY | PROVIDERS: PCP Nurse Practitioner Family; Visit Provider Orthopaedic Surgery | DX: M48.062 Spinal stenosis, lumbar region with neurogenic claudication (principal) | CPT/HCPCS: 99214 ==

== ENCOUNTER → 2022-07-23 14:18 | Outpatient (BNVA) | payer MEDICAID, SELFPAY | PROVIDERS: PCP Nurse Practitioner Family; Visit Provider Thoracic Surgery (Cardiothoracic Vascular Surgery) | DX: I87.2 Venous insufficiency (chronic) (peripheral) (principal); I96 Gangrene, not elsewhere classified; L97.822 Non-pressure chronic ulcer of other part of left lower leg with fat layer exposed | CPT/HCPCS: 11042; 11045; A6252 ==

== ENCOUNTER 2022-07-30 11:11 | Outpatient (CLI) | payer MEDICAID, SELFPAY ==
--- NOTE | 2022-07-30 11:18 | CT_ITS ---
WS: [id number] CT NECK TECHNIQUE: Contrast-enhanced CT of the neck with coronal and sagittal reformatted images. CLINICAL INFORMATION: TINNITUS, UNSPECIFIED EAR, DYSPHAGIA COMPARISON: None. DLP: 140.[address] scans at [facility] use at least one of these dose optimization techniques: automated e xposure control; mA and/or kV adjustment per patient size (includes targeted exams where dose is matc hed to clinical indication); or iterative reconstruction. FINDINGS: Fibrosis in the lung apices. Tiny calcified LEFT thyroid nodule measuring 3 mm. Mastoid air cells wel l aerated. Polypoid mucosal thickening in the paranasal sinuses. Polypoid mucosal thickening involving the nasal turbinates. Mild mucosal thickening in the maxillary sinuses. Sphenoid sinus is well aerated. Mucosa l thickening with opacification the sphenoid sinus ostia. Mastoid air cells well aerated. Normal para pharyngeal fat. Normal posterior nasopharynx. No evidence of supraglottic or glottic mass. Normal sub glottic airway. Parotid glands are normal. Normal submandibular glands. No cervical lymphadenopathy. Straightening of the normal cervical lordosis. Slight retrolisthesis C3 on C4. Disc space narrowing worse at C3-C4 and C4-C5. Moderate to severe central canal stenosis C3-C4 and moderate C4-C5. This can be further evaluated MRI. Mild anterior hypertrophic changes at C3-C5. Minimal indentation on the posterior pharynx. CT/CT neck w con* [id number] IMPRESSION: 1. Normal salivary glands. 2. No evidence of supraglottic or glottic mass. Normal subglottic airway. 3. Calcified small LEFT thyroid nodule measuring 3 mm. 4. Moderate spondylitic changes cervical spine with slight retrolisthesis C3 o n C4. Moderate to severe central canal stenosis C3-C4 and moderate central wilma l stenosis C4-C5. This can be further evaluated MRI. 5. Polypoid mucosal thickening in the paranasal sinuses. . 6. Mastoid air cells well aerated.
--- NOTE | 2022-07-30 11:22 | FL_ITS ---
WS: [id number] Exam: FL barium swallow modifd [id number] Date/Time of Exam: 07/30/2022 12:11 PM Reason For Exam: Other dysphagia Fluoroscopy time: 4min [id number] minutes # of spot films: Modified barium swallow was performed in conjunction with the speech therapy service. The patient tolerated thin liquid, nectar consistency and pudding consistency barium foodstuffs witho ut difficulty. The patient ingested solid barium mixture foodstuffs as well as a barium tablet withou t difficulty or complication. There was no sign of aspiration or penetration into the laryngeal inlet during the exam. FL/FL barium swallow modifd [id number] IMPRESSION: 1. No sign of aspiration or penetration. A separate report and recommendations will follow from the speech therapy servi ce.
[2022-07-30 11:54] LABS: Blood Urea Nitrogen 18 mg/dL (8-23)
[2022-07-30] MEDS: iohexol 350 mg/mL 500 mL Btl (per mL) IV (12:00)
== END 2022-07-30 11:12 | disposition home or self-care (01) ==
LOC: RAD 11:14
PROVIDERS: PCP Nurse Practitioner Family; Visit Provider Specialist
DX: H93.19 Tinnitus, unspecified ear (principal); R13.10 Dysphagia, unspecified; E04.1 Nontoxic single thyroid nodule; M48.02 Spinal stenosis, cervical region
CPT/HCPCS: 70491; 74230; 82565; 84520; 92611; Q9967

== ENCOUNTER → 2022-07-30 12:57 | Outpatient (BNVA) | payer MEDICAID, SELFPAY | PROVIDERS: PCP Nurse Practitioner Family; Visit Provider Thoracic Surgery (Cardiothoracic Vascular Surgery) | DX: I96 Gangrene, not elsewhere classified (principal); I87.2 Venous insufficiency (chronic) (peripheral); L97.822 Non-pressure chronic ulcer of other part of left lower leg with fat layer exposed | CPT/HCPCS: 11042; 11045; A6210; A6253 ==

== ENCOUNTER 2022-08-03 07:14 | Day surgery (SDC) | payer MEDICAID, SELFPAY ==
[2022-07-31 13:19] VITALS: BMI 21.6
[2022-08-03] VITALS (11 sets, daily range): BP systolic 134–163; BP diastolic 60–107; PULSE 66–72; RESP 16–18; TEMP 36.1–36.6; O2SAT 95–99
[2022-08-03] MEDS: sodium chloride 0.9% 1,000 ML 30 ML IV (08:08)
--- NOTE | 2022-08-03 08:13 | ANES.PREANE2 ---
Pre-Anesthetic Assessment Height/Weight: Height 1.8 m Weight 70.307 kg Temp Pulse Resp BP Pulse Ox O2 Del Method 97 F L 72 18 163/107 97 Room Air 08/03/22 07:42 08/03/22 07:42 08/03/22 07:42 08/03/22 07:42 08/03/22 07:42 08/03/22 07:32 Preop Diagnosis: Lumbar stenosis with neurogenic claudication Operation Date: 08/03/22 08:45 Proposed Procedures p Minimally invasive Lumbar Spine Decompression:L3/4 87536, L4/5 28065, M48.062(Right) - Cordell Christensen DO Familial anesthetic complications: none Was Beta Andres taken within 24 hours: N/A Last intake: Intake Last Liquid Date 08/03/22 Last Liquid Time 06:00 Last Solid Date 08/02/22 Last Solid Time 23:00 Social No alcohol and No tobacco (h/o smoking) Exam alert, oriented x 3, clear to auscultation bilaterally and regular rate & rhythm Airway Submandibular: within normal limits Cervical ROM: Other (limited extension) Mallampati: Class II Dentition: false Pulmonary Chronic Obstructive Pulmonary Disease CV/HEM Hypertension, Murmur and Peripheral Vascular Disease Musc/skel Lower Back Pain and Osteoarthritis/DJD Anesthetic Plan ASA status: 3 Anesthesia: General Medications/Allergies Home Medications Medication Instructions Recorded Confirmed Last Taken Type acetaminophen 650 mg 650 mg PO Q12H 05/11/20 07/31/22 08/03/22 History tablet,extended release (Tylenol Arthritis Pain) aspirin 81 mg tablet,delayed 81 mg PO DAILY 05/11/20 07/31/22 07/27/22 History release docusate sodium 100 mg capsule 100 mg PO DAILY PRN Constipation 05/11/20 07/31/22 07/31/22 History (Stool Softener) mecobalamin (vitamin B12) 5,000 5,000 mcg PO DAILY 05/11/20 07/31/22 07/31/22 History mcg disintegrating tablet omega-3 fatty acids 1,000 mg 1,000 mg PO BID 05/11/20 07/31/22 07/29/22 History capsule (Fish Oil Concentrate) Bacillus subtilis 1.5 billion 1 tab PO DAILY #30 tabs 12/14/20 07/31/22 08/02/22 Rx cell-inulin 1 gram chewable tablet (Antoni Cruz) multivitamin 1 tab PO DAILY 05/09/21 07/31/22 07/31/22 History saw palm 50 mg-pyg 20 mg-nettl 25 1 cap PO DAILY 03/19/22 07/31/22 07/31/22 History mg-pump 100 [id number] capsule (Prostate Control) vitamin E 670 mg (1,000 unit) 670 mg PO DAILY 03/19/22 07/31/22 07/29/22 History capsule magnesium hydroxide 400 mg/5 mL 5 ml PO DAILY PRN constipation 03/24/22 07/31/22 07/31/22 Rx oral suspension (Milk of Magnesia) #355 mL senna leaf extract 176 mg/5 mL 10 ml PO BID PRN constipation #237 03/24/22 07/31/22 07/31/22 Rx oral syrup (senna) mL cyclobenzaprine 10 mg tablet 10 mg PO TID PRN muscle spasm #30 06/13/22 07/31/22 08/02/22 Rx tabs tamsulosin 0.4 mg capsule 0.4 mg PO DAILY 07/31/22 07/31/22 08/03/22 History Allergies Allergy/AdvReac Type Severity Reaction Status Date / Time hydrocodone Allergy Unknown ADR/ALGY-Pa Verified 08/03/22 07:45 lpitations chlorpromazine Allergy ADR-Muscle Verified 08/03/22 07:44 [From Thorazine] Pain diazepam [From Valium] Allergy ALGY-Difficulty Verified 08/03/22 07:44 Swallowing zinc oxide Allergy RED/SWETS/SKIN Verified 08/03/22 07:44 IRRITATION Current Medications Generic Name Dose Route Start Last Admin Trade Name Freq PRN Reason Stop Dose Admin Sodium Chloride 1,000 mls @ 30 mls/hr 08/03/22 07:30 08/03/22 08:08 Sodium Chloride 0.9% IV 08/04/22 07:29 30 mls/hr .Q24H GITA Administration PFSH Anesthesia Medical History Abdominal wall hernia Bladder diverticulum Bladder stone History of MRSA infection Lipodermatosclerosis of left lower extremity Venous stasis of both lower extremities Surgical History History of surgery on arm Hx of cataract extraction RIGHT EYE Hx of hernia repair Hx of tonsillectomy Status post transurethral resection of prostate Family History Mother Cancer Father Cancer Other CAD (coronary artery disease) Diabetes Social History Smoking and tobacco status: former smoker Second hand smoke exposure: Yes Alcohol intake: never Substance/Drug Use: never Data Anesthesia Cardiac Studies: No Data to Display
--- NOTE | 2022-08-03 09:02 | W.PM.OPSUD ---
Surgery/Procedure H&P Update DATE OF PROCEDURE: August 03, 2022 DATE H&P PERFORMED: 07/17/22 H&P UPDATE INFORMATION: I have reviewed H&P completed within last 30 days, I have examined patient prior to procedure and No changes to prior documentation PREOP DIAGNOSIS: Lumbar stenosis with neurogenic claudication PLANNED PROCEDURE: Operation Date: 08/03/22 08:45 Proposed Procedures p Minimally invasive Lumbar Spine Decompression:L3/4 43939, L4/5 26424, M48.062(Right) - Cordell Christensen DO
[2022-08-03] MEDS: ceFAZolin 2,000 MG in sodium chloride 0.9% (plus) 50 ML 100 MG IV (09:21)
[2022-08-03] MEDS: lidocaine-epi 1% 20 mL INJ 10 ML INJECTION (10:16)
--- NOTE | 2022-08-03 10:58 | XR_ITS ---
WS: [id number] Exam: XR lumbar spine 2-3V* [id number] Date/Time of Exam: 08/03/2022 10:59 AM Reason For Exam: OR PICS A limited anterior-posterior intraoperative C-arm image of the lumbar spine was obtained for surgical localization purposes.
--- NOTE | 2022-08-03 11:02 | PC.NURSE ---
Pt arrived to PACU, awake, Dressing to back C/D/I, able to move all extremities.
--- NOTE | 2022-08-03 11:28 | PM.OP ---
Operative Report Date of procedure: August 03, 2022 Pre-op diagnosis: Preop Diagnosis Lumbar stenosis with neurogenic claudication Post-op diagnosis: same Procedure done: 1.L3/4 laminectomy with partial facetectomy 2. L4/5 laminectomy with patial facetectomy Surgeon: Cordell Christensen Manager Study: Kirill Nevarez Manager Study: The surgical orderly, Kirill Nevarez, PAC was needed for his expertise under the microscope. He was important and necessary throughout the procedure to complete in a safe and timely manner. He assisted with patient positioning prepping and draping tissue retraction suctioning of the operative field protection of the dural sac and tissue closure Estimated blood loss (mL): 50 Procedure: 1.L3/4 laminectomy with partial facetectomy 2. L4/5 laminectomy with patial facetectomy Patient is brought to the operative suite. After undergoing anesthesia they are placed in the prone position. All areas of impingement are well padded. Patient is then prepped and draped in the normal sterile fashion. A skin incision is made over the L3/4 level. This is confirmed under c-arm guidance. A series of dilators are passed and the tubular retractor is docked on the L3 lamina. A bovie is used to clear the soft tissue off the lamina and the L 3/4 facet joint. A high speed cande is then used to perform the laminectomy and take down the medial aspect of the L 3/4 facet joint. A kerrison rongeure was then used to take down the remaining lamina and smooth the edge of the laminectomy up to the point where the ligamentum flavum attaches. Attention was then brought to the medial aspect of the facet joint. The remaining medial aspect of the superior and inferior aspect of the facet joint were taken down with the kerrison from the pedicle of L3 to L 4. The facet joint had significant hypertrophy. Attention was then brought to the Ligamentum Flavum. The ligament was taken down from the lamina of L3 to L4 and out medially to the remaining facet joint. The ligament was thick. The dura was then exposed. The dura was in good repair. The L3 nerve was then traced with a curette out the L3/4 foramen and found to be adequately decompressed. The L4 nerve was traced with a curette around the L4 pedicle. The lateral recess was opened with a kerrison helping to further decompress the L4 nerve. A skin incision is made over the L4/5level. This is confirmed under c-arm guidance. A series of dilators are passed and the tubular retractor is docked on the L4 lamina. A bovie is used to clear the soft tissue off the lamina and the L 4/5 facet joint. A high speed cande is then used to perform the laminectomy and take down the medial aspect of the L 4/5 facet joint. A kerrison rongeure was then used to take down the remaining lamina and smooth the edge of the laminectomy up to the point where the ligamentum flavum attaches. Attention was then brought to the medial aspect of the facet joint. The remaining medial aspect of the superior and inferior aspect of the facet joint were taken down with the kerrison from the pedicle of L4 to L 5. The facet joint had significant hypertrophy. Attention was then brought to the Ligamentum Flavum. The ligament was taken down from the lamina of L4 to L5 and out medially to the remaining facet joint. The ligament was thick. The dura was then exposed. The dura was in good repair. The L3 nerve was then traced with a curette out the L4/5 foramen and found to be adequately decompressed. The L5 nerve was traced with a curette around the L5 pedicle. The lateral recess was opened with a kerrison helping to further decompress the L5 nerve. Wound is then irrigated copiously with saline and surgiflo is used to stop any bleeding. The tubular retractor is removed and the wound is closed with vicryl and monocryl suture. Glue is then used to protect the wound. A sterile dressing is then placed. Patient was then placed in the supine position and transferred to the PACU in stable condition.
--- NOTE | 2022-08-03 12:56 | ANE.PACU2 ---
Inpatient post-anesthesia follow up: Airway intact: Yes Vital signs: Temperature 97.8 F Pulse Rate 68 Respiratory Rate 17 Blood Pressure 148/69 Pulse Oximetry 97 Oxygen Delivery Me thod Room Air Oxygen Flow Rate Fraction of Inspir ed Oxygen Hydration adequate: Yes Nausea and vomiting: No Pain level: 3 Mental status: Baseline
== END 2022-08-03 12:45 | disposition home or self-care (01) ==
PROVIDERS: PCP Nurse Practitioner Family; Visit Provider Orthopaedic Surgery
PROC: (CPT 63005; principal; 2022-08-03 08:35)
DX: M48.062 Spinal stenosis, lumbar region with neurogenic claudication (principal); J44.9 Chronic obstructive pulmonary disease, unspecified; I10 Essential (primary) hypertension; I73.9 Peripheral vascular disease, unspecified; Z79.82 Long term (current) use of aspirin; Z79.899 Other long term (current) drug therapy; Z87.891 Personal history of nicotine dependence; Z86.14 Personal history of Methicillin resistant Staphylococcus aureus infection
CPT/HCPCS: 63047; 63048; 72020; 72100; 76000; J0690; J1100; J2405; J2704; J3010; J3490; J7030

== ENCOUNTER → 2022-08-13 13:11 | Outpatient (BNVA) | payer MEDICAID, SELFPAY | PROVIDERS: PCP Nurse Practitioner Family; Visit Provider Nurse Practitioner Family | DX: I96 Gangrene, not elsewhere classified (principal); I87.2 Venous insufficiency (chronic) (peripheral); L97.822 Non-pressure chronic ulcer of other part of left lower leg with fat layer exposed | CPT/HCPCS: 97597; 97598; A6253 ==

== ENCOUNTER → 2022-08-20 13:13 | Outpatient (BNVA) | payer MEDICAID, SELFPAY | PROVIDERS: PCP Nurse Practitioner Family; Visit Provider Thoracic Surgery (Cardiothoracic Vascular Surgery) | DX: I87.2 Venous insufficiency (chronic) (peripheral) (principal); L97.822 Non-pressure chronic ulcer of other part of left lower leg with fat layer exposed | CPT/HCPCS: 11042; 11045; A6253 ==

== ENCOUNTER → 2022-08-27 13:15 | Outpatient (BNVA) | payer MEDICAID, SELFPAY | PROVIDERS: PCP Nurse Practitioner Family; Visit Provider Thoracic Surgery (Cardiothoracic Vascular Surgery) | DX: I87.2 Venous insufficiency (chronic) (peripheral) (principal); I96 Gangrene, not elsewhere classified; L97.811 Non-pressure chronic ulcer of other part of right lower leg limited to breakdown of skin | CPT/HCPCS: 11042; 11045; 87070; 87077; 87176; 87186; 87205; A6252 ==

== ENCOUNTER 2022-08-28 12:11 | Outpatient (CLI) | payer MEDICAID, SELFPAY ==
--- NOTE | 2022-08-28 12:15 | USCV_ITS ---
Jose Weldon Age: 77 Gender: M : 1945 Exam Date: 08/28/2022 12:34 Ordering Phys: Nikolas Harris MD (Andy) ([email or web address]) Technologist: CT Exam Location: [facility] – [place] Indication: HISTORY: PROCEDURES: FINDINGS: 3.25 x 1.14 cm echogenic circumscribed lesion in the left groin. The veins are found to be patent with and easy compressibility. Spontaneous blood flow was noted. CONCLUSIONS 1. No evidence of DVT in the above-mentioned identifiable veins on the left side. 2. No evidence of insufficiency in the planes examined 3.There is a circumscribed lesion in the left groin suggesting lymph node/soft tissue mass. Clinical correlation is recommended Dr Cecilio Rios MD [facility] (Electronically Signed) Final Date: 28 Aug 2022 23:48 S
== END 2022-08-28 12:12 | disposition home or self-care (01) ==
LOC: RAD 12:13
PROVIDERS: PCP Nurse Practitioner Family; Visit Provider Thoracic Surgery (Cardiothoracic Vascular Surgery)
DX: L97.929 Non-pressure chronic ulcer of unspecified part of left lower leg with unspecified severity (principal); I99.8 Other disorder of circulatory system; M79.605 Pain in left leg; R19.04 Left lower quadrant abdominal swelling, mass and lump
CPT/HCPCS: 29581; 93971; A6252

== ENCOUNTER → 2022-08-30 13:47 | Outpatient (BNVA) | payer MEDICAID, SELFPAY | PROVIDERS: PCP Nurse Practitioner Family; Visit Provider Orthopaedic Surgery | DX: Z47.89 Encounter for other orthopedic aftercare (principal) | CPT/HCPCS: 99024 ==

== ENCOUNTER → 2022-09-05 13:22 | Outpatient (BNVA) | payer MEDICAID, SELFPAY | PROVIDERS: PCP Nurse Practitioner Family; Visit Provider Thoracic Surgery (Cardiothoracic Vascular Surgery) | DX: I96 Gangrene, not elsewhere classified (principal); I87.2 Venous insufficiency (chronic) (peripheral); L97.822 Non-pressure chronic ulcer of other part of left lower leg with fat layer exposed | CPT/HCPCS: 11042; 11045; A6252 ==

== ENCOUNTER → 2022-09-12 14:00 | Outpatient (BNVA) | payer MEDICAID, SELFPAY | PROVIDERS: PCP Nurse Practitioner Family; Visit Provider Thoracic Surgery (Cardiothoracic Vascular Surgery) | DX: I96 Gangrene, not elsewhere classified (principal); I87.2 Venous insufficiency (chronic) (peripheral); L97.822 Non-pressure chronic ulcer of other part of left lower leg with fat layer exposed | CPT/HCPCS: 11042; 11045; A6252 ==

== ENCOUNTER → 2022-09-17 09:52 | Outpatient (BNVA) | payer MEDICAID, SELFPAY | PROVIDERS: PCP Nurse Practitioner Family; Visit Provider Thoracic Surgery (Cardiothoracic Vascular Surgery) | DX: I96 Gangrene, not elsewhere classified (principal); I87.2 Venous insufficiency (chronic) (peripheral); L97.822 Non-pressure chronic ulcer of other part of left lower leg with fat layer exposed | CPT/HCPCS: 11042; 11045; A6252 ==

== ENCOUNTER → 2022-09-24 12:59 | Outpatient (BNVA) | payer MEDICAID, SELFPAY | PROVIDERS: PCP Nurse Practitioner Family; Visit Provider Thoracic Surgery (Cardiothoracic Vascular Surgery) | DX: I96 Gangrene, not elsewhere classified (principal); I87.2 Venous insufficiency (chronic) (peripheral); L97.822 Non-pressure chronic ulcer of other part of left lower leg with fat layer exposed | CPT/HCPCS: 11042; 11045; A6252 ==

== ENCOUNTER → 2022-09-25 13:54 | Outpatient (BNVA) | payer MEDICAID, SELFPAY | PROVIDERS: PCP Nurse Practitioner Family; Visit Provider Orthopaedic Surgery | DX: Z48.89 Encounter for other specified surgical aftercare (principal) | CPT/HCPCS: 99024 ==

== ENCOUNTER → 2022-10-01 13:15 | Outpatient (BNVA) | payer MEDICAID, SELFPAY | PROVIDERS: PCP Nurse Practitioner Family; Visit Provider Thoracic Surgery (Cardiothoracic Vascular Surgery) | DX: I96 Gangrene, not elsewhere classified (principal); I87.2 Venous insufficiency (chronic) (peripheral); L97.822 Non-pressure chronic ulcer of other part of left lower leg with fat layer exposed | CPT/HCPCS: 11042; 11045; A6252 ==

== ENCOUNTER → 2022-10-10 13:01 | Outpatient (BNVA) | payer MEDICAID, SELFPAY | PROVIDERS: PCP Nurse Practitioner Family; Visit Provider Thoracic Surgery (Cardiothoracic Vascular Surgery) | DX: I96 Gangrene, not elsewhere classified (principal); I87.2 Venous insufficiency (chronic) (peripheral); L97.822 Non-pressure chronic ulcer of other part of left lower leg with fat layer exposed | CPT/HCPCS: 97597; 97598 ==

== ENCOUNTER 2022-10-15 10:05 | Outpatient (CLI) | payer MEDICAID, SELFPAY ==
--- NOTE | 2022-10-15 10:13 | FL_ITS ---
WS: [id number] FL barium swallow [id number] REASON FOR EXAM: OTHER DYSPHAGIA FLUOROSCOPY TIME: 2min [id number] # OF SPOT FILMS: Multiple FINDINGS: Patient was examined in the upright AP and lateral positions, prone GUAMAN, and supine. The swallowing of barium was monitored fluoroscopically and documented with multiple spot films. The esophagus was evaluated from the oropharynx to the fundus of the stomach. No abnormality of the oropharynx or the cervical esophagus was noted. Mild impingement on the mid thoracic esophagus by ectatic thoracic aorta. Significant dysmotility of the thoracic esophagus with frequent loss of primary peristaltic wave dege nerating into tertiary contractions with significant retention of barium in the esophagus with episod es of retrograde reflux of the retained barium in the esophagus. The dysmotility was less severe with the patient in the upright position. No significant hiatal hernia, stricture, or gastroesophageal reflux. FL/FL barium swallow [id number] IMPRESSION: Significant thoracic esophageal dysmotility as above.
== END 2022-10-15 10:06 | disposition home or self-care (01) ==
LOC: RAD 10:07
PROVIDERS: PCP Nurse Practitioner Family; Visit Provider Specialist
DX: R13.19 Other dysphagia (principal); K22.4 Dyskinesia of esophagus
CPT/HCPCS: 74220

== ENCOUNTER → 2022-10-17 14:20 | Outpatient (BNVA) | payer MEDICAID, SELFPAY | PROVIDERS: PCP Nurse Practitioner Family; Visit Provider Thoracic Surgery (Cardiothoracic Vascular Surgery) | DX: I96 Gangrene, not elsewhere classified (principal); I87.2 Venous insufficiency (chronic) (peripheral); L97.822 Non-pressure chronic ulcer of other part of left lower leg with fat layer exposed | CPT/HCPCS: 11042; 11045; 97597; A6021; A6248 ==

== ENCOUNTER → 2022-10-22 13:24 | Outpatient (BNVA) | payer MEDICAID, SELFPAY | PROVIDERS: PCP Nurse Practitioner Family; Visit Provider Thoracic Surgery (Cardiothoracic Vascular Surgery) | DX: I96 Gangrene, not elsewhere classified (principal); I87.2 Venous insufficiency (chronic) (peripheral); L97.822 Non-pressure chronic ulcer of other part of left lower leg with fat layer exposed | CPT/HCPCS: 11042; 11045; 97597; A6021 ==

== ENCOUNTER → 2022-10-29 15:08 | Outpatient (BNVA) | payer MEDICAID, SELFPAY | PROVIDERS: PCP Nurse Practitioner Family; Visit Provider Thoracic Surgery (Cardiothoracic Vascular Surgery) | DX: I96 Gangrene, not elsewhere classified (principal); I87.2 Venous insufficiency (chronic) (peripheral); L97.822 Non-pressure chronic ulcer of other part of left lower leg with fat layer exposed | CPT/HCPCS: 11042; 11045; 97597; A6252; A6253 ==

== ENCOUNTER → 2022-11-05 15:25 | Outpatient (BNVA) | payer MEDICAID, SELFPAY | PROVIDERS: PCP Nurse Practitioner Family; Visit Provider Thoracic Surgery (Cardiothoracic Vascular Surgery) | DX: I96 Gangrene, not elsewhere classified (principal); I87.2 Venous insufficiency (chronic) (peripheral); L97.822 Non-pressure chronic ulcer of other part of left lower leg with fat layer exposed | CPT/HCPCS: 97597; 97598; 97606; A6237; A6250 ==

== ENCOUNTER → 2022-11-12 14:04 | Outpatient (BNVA) | payer MEDICAID, SELFPAY | PROVIDERS: PCP Nurse Practitioner Family; Visit Provider Thoracic Surgery (Cardiothoracic Vascular Surgery) | DX: I96 Gangrene, not elsewhere classified (principal); I87.2 Venous insufficiency (chronic) (peripheral); L97.822 Non-pressure chronic ulcer of other part of left lower leg with fat layer exposed | CPT/HCPCS: 97597; 97598; 97605; A6212; A6237; A6250 ==

== ENCOUNTER → 2022-11-15 14:33 | Outpatient (BNVA) | payer MEDICAID, SELFPAY | PROVIDERS: PCP Nurse Practitioner Family; Visit Provider Orthopaedic Surgery | DX: M48.062 Spinal stenosis, lumbar region with neurogenic claudication (principal); Z47.89 Encounter for other orthopedic aftercare | CPT/HCPCS: 99024; 99214 ==

== ENCOUNTER → 2022-11-19 14:23 | Outpatient (BNVA) | payer MEDICAID, SELFPAY | PROVIDERS: PCP Nurse Practitioner Family; Visit Provider Thoracic Surgery (Cardiothoracic Vascular Surgery) | DX: I87.2 Venous insufficiency (chronic) (peripheral) (principal); I96 Gangrene, not elsewhere classified; L97.822 Non-pressure chronic ulcer of other part of left lower leg with fat layer exposed; Z09 Encounter for follow-up examination after completed treatment for conditions other than malignant neoplasm | CPT/HCPCS: 97597; 97598 ==

== ENCOUNTER → 2022-11-26 15:10 | Outpatient (BNVA) | payer MEDICAID, SELFPAY | PROVIDERS: Visit Provider Thoracic Surgery (Cardiothoracic Vascular Surgery) | DX: I87.2 Venous insufficiency (chronic) (peripheral) (principal); L97.822 Non-pressure chronic ulcer of other part of left lower leg with fat layer exposed | CPT/HCPCS: 97597; 97598 ==

== ENCOUNTER → 2022-12-03 13:49 | Outpatient (BNVA) | payer MEDICAID, SELFPAY | PROVIDERS: Visit Provider Thoracic Surgery (Cardiothoracic Vascular Surgery) | DX: I96 Gangrene, not elsewhere classified (principal); I87.2 Venous insufficiency (chronic) (peripheral); L97.822 Non-pressure chronic ulcer of other part of left lower leg with fat layer exposed | CPT/HCPCS: 97597; 97598 ==

== ENCOUNTER 2022-12-17 10:56 | Outpatient (RCR) | payer MEDICAID, SELFPAY | END 2023-01-05 23:59 | disposition home or self-care (01) | LOC: SPT 10:56 | PROVIDERS: Visit Provider Orthopaedic Surgery | DX: M54.9 Dorsalgia, unspecified (principal); G89.29 Other chronic pain | CPT/HCPCS: 97110; 97161; 97597; 97598 ==

== ENCOUNTER → 2022-12-24 13:55 | Outpatient (BNVA) | payer MEDICAID, SELFPAY | PROVIDERS: Visit Provider Nurse Practitioner Family | DX: I96 Gangrene, not elsewhere classified (principal); I87.2 Venous insufficiency (chronic) (peripheral); L97.822 Non-pressure chronic ulcer of other part of left lower leg with fat layer exposed; Z09 Encounter for follow-up examination after completed treatment for conditions other than malignant neoplasm | CPT/HCPCS: 11042; 11045; 97597; 97598; A6197 ==

== ENCOUNTER → 2022-12-31 14:17 | Outpatient (BNVA) | payer MEDICAID, SELFPAY | PROVIDERS: Visit Provider Thoracic Surgery (Cardiothoracic Vascular Surgery) | DX: I96 Gangrene, not elsewhere classified (principal); I87.2 Venous insufficiency (chronic) (peripheral); L97.822 Non-pressure chronic ulcer of other part of left lower leg with fat layer exposed | CPT/HCPCS: 11042; 11045; 97597; A6197; A6253 ==

== ENCOUNTER 2023-01-06 06:00 | Outpatient (RCR) | payer MEDICAID, SELFPAY | END 2023-02-05 23:59 | disposition home or self-care (01) | LOC: SPT 06:00 | PROVIDERS: Visit Provider Orthopaedic Surgery | DX: M54.9 Dorsalgia, unspecified (principal); G89.29 Other chronic pain | CPT/HCPCS: 97110 ==

== ENCOUNTER → 2023-01-07 14:19 | Outpatient (BNVA) | payer MEDICAID, SELFPAY | PROVIDERS: Visit Provider Thoracic Surgery (Cardiothoracic Vascular Surgery) | DX: I87.2 Venous insufficiency (chronic) (peripheral) (principal); L97.822 Non-pressure chronic ulcer of other part of left lower leg with fat layer exposed | CPT/HCPCS: 29581; A6251; A6252 ==

== ENCOUNTER → 2023-01-14 14:41 | Outpatient (BNVA) | payer MEDICAID, SELFPAY | PROVIDERS: Visit Provider Thoracic Surgery (Cardiothoracic Vascular Surgery) | DX: I96 Gangrene, not elsewhere classified (principal); I87.2 Venous insufficiency (chronic) (peripheral); L97.822 Non-pressure chronic ulcer of other part of left lower leg with fat layer exposed | CPT/HCPCS: 11042; 11045; 97597; A6253 ==

== ENCOUNTER → 2023-01-21 16:04 | Outpatient (BNVA) | payer MEDICAID, SELFPAY | PROVIDERS: Visit Provider Thoracic Surgery (Cardiothoracic Vascular Surgery) | DX: I96 Gangrene, not elsewhere classified (principal); I87.2 Venous insufficiency (chronic) (peripheral); L97.822 Non-pressure chronic ulcer of other part of left lower leg with fat layer exposed; Z09 Encounter for follow-up examination after completed treatment for conditions other than malignant neoplasm | CPT/HCPCS: 11042; 11045; A6253 ==

== ENCOUNTER → 2023-01-28 09:43 | Outpatient (BNVA) | payer MEDICAID, SELFPAY | PROVIDERS: Visit Provider Nurse Practitioner Family | DX: I96 Gangrene, not elsewhere classified (principal); I87.2 Venous insufficiency (chronic) (peripheral); L97.822 Non-pressure chronic ulcer of other part of left lower leg with fat layer exposed | CPT/HCPCS: 11042; 11045; A6021; A6253 ==

== ENCOUNTER → 2023-01-31 14:08 | Outpatient (BNVA) | payer MEDICAID, SELFPAY | PROVIDERS: Visit Provider Orthopaedic Surgery | DX: M48.062 Spinal stenosis, lumbar region with neurogenic claudication (principal) | CPT/HCPCS: 99214 ==

== ENCOUNTER → 2023-02-04 14:45 | Outpatient (BNVA) | payer MEDICAID, SELFPAY | PROVIDERS: Visit Provider Thoracic Surgery (Cardiothoracic Vascular Surgery) | DX: I96 Gangrene, not elsewhere classified (principal); L97.821 Non-pressure chronic ulcer of other part of left lower leg limited to breakdown of skin; I87.2 Venous insufficiency (chronic) (peripheral) | CPT/HCPCS: 97597; 97598 ==

== ENCOUNTER → 2023-02-11 14:00 | Outpatient (BNVA) | payer MEDICAID, SELFPAY | PROVIDERS: Visit Provider Thoracic Surgery (Cardiothoracic Vascular Surgery) | DX: I96 Gangrene, not elsewhere classified (principal); I87.2 Venous insufficiency (chronic) (peripheral); L97.821 Non-pressure chronic ulcer of other part of left lower leg limited to breakdown of skin | CPT/HCPCS: 97597; 97598 ==

== ENCOUNTER 2023-02-13 12:10 | Outpatient (RCR) | payer MEDICAID, SELFPAY | END 2023-03-07 23:59 | disposition home or self-care (01) | LOC: SPT 12:10 | PROVIDERS: Visit Provider Orthopaedic Surgery | DX: M54.9 Dorsalgia, unspecified (principal); G89.29 Other chronic pain | CPT/HCPCS: 97110 ==

== ENCOUNTER → 2023-02-19 13:21 | Outpatient (BNVA) | payer MEDICAID, SELFPAY | PROVIDERS: Visit Provider Nurse Practitioner Family | DX: I96 Gangrene, not elsewhere classified (principal); I87.2 Venous insufficiency (chronic) (peripheral); L97.821 Non-pressure chronic ulcer of other part of left lower leg limited to breakdown of skin | CPT/HCPCS: 97597; 97598 ==

== ENCOUNTER → 2023-02-26 13:27 | Outpatient (BNVA) | payer MEDICAID, SELFPAY | PROVIDERS: Visit Provider Thoracic Surgery (Cardiothoracic Vascular Surgery) | DX: I96 Gangrene, not elsewhere classified (principal); I87.2 Venous insufficiency (chronic) (peripheral); L97.821 Non-pressure chronic ulcer of other part of left lower leg limited to breakdown of skin | CPT/HCPCS: 97597; 97598 ==

== ENCOUNTER → 2023-03-05 15:05 | Outpatient (BNVA) | payer MEDICAID, SELFPAY | PROVIDERS: Visit Provider Nurse Practitioner Family | DX: I96 Gangrene, not elsewhere classified (principal); I87.2 Venous insufficiency (chronic) (peripheral); L97.821 Non-pressure chronic ulcer of other part of left lower leg limited to breakdown of skin | CPT/HCPCS: 97597; 97598 ==

== ENCOUNTER → 2023-03-12 14:55 | Outpatient (BNVA) | payer MEDICAID, SELFPAY | PROVIDERS: Visit Provider Nurse Practitioner Family | DX: I96 Gangrene, not elsewhere classified (principal); I87.2 Venous insufficiency (chronic) (peripheral); L97.821 Non-pressure chronic ulcer of other part of left lower leg limited to breakdown of skin; L89.892 Pressure ulcer of other site, stage 2 | CPT/HCPCS: 97597; 97598 ==

== ENCOUNTER → 2023-03-19 14:13 | Outpatient (BNVA) | payer MEDICAID, SELFPAY | PROVIDERS: Visit Provider Nurse Practitioner Family | DX: I96 Gangrene, not elsewhere classified (principal); I87.2 Venous insufficiency (chronic) (peripheral); L97.821 Non-pressure chronic ulcer of other part of left lower leg limited to breakdown of skin | CPT/HCPCS: 97597; 97598 ==

== ENCOUNTER → 2023-04-02 12:55 | Outpatient (BNVA) | payer MEDICAID, SELFPAY | PROVIDERS: Visit Provider Nurse Practitioner Family | DX: I96 Gangrene, not elsewhere classified (principal); I87.2 Venous insufficiency (chronic) (peripheral); L97.821 Non-pressure chronic ulcer of other part of left lower leg limited to breakdown of skin | CPT/HCPCS: 97597; 97598 ==

== ENCOUNTER → 2023-04-11 14:28 | Outpatient (BNVA) | payer MEDICAID, SELFPAY | PROVIDERS: Visit Provider Nurse Practitioner Family | DX: I87.2 Venous insufficiency (chronic) (peripheral) (principal); L97.821 Non-pressure chronic ulcer of other part of left lower leg limited to breakdown of skin; L89.892 Pressure ulcer of other site, stage 2 | CPT/HCPCS: 97597; 97598 ==

== ENCOUNTER → 2023-04-18 14:24 | Outpatient (BNVA) | payer MEDICAID, SELFPAY | PROVIDERS: Visit Provider Nurse Practitioner Family | DX: I87.2 Venous insufficiency (chronic) (peripheral) (principal); L97.821 Non-pressure chronic ulcer of other part of left lower leg limited to breakdown of skin; L89.892 Pressure ulcer of other site, stage 2 | CPT/HCPCS: 97597; 97598 ==

== ENCOUNTER → 2023-04-25 14:18 | Outpatient (BNVA) | payer MEDICAID, SELFPAY | PROVIDERS: Visit Provider Nurse Practitioner Family | DX: I96 Gangrene, not elsewhere classified (principal); I87.2 Venous insufficiency (chronic) (peripheral); L97.822 Non-pressure chronic ulcer of other part of left lower leg with fat layer exposed | CPT/HCPCS: 97597; 97598 ==

== ENCOUNTER → 2023-05-02 15:21 | Outpatient (BNVA) | payer MEDICAID, SELFPAY | PROVIDERS: Visit Provider Nurse Practitioner Family | DX: I87.2 Venous insufficiency (chronic) (peripheral) (principal); L97.822 Non-pressure chronic ulcer of other part of left lower leg with fat layer exposed | CPT/HCPCS: 11042; 11045; 97597 ==

== ENCOUNTER → 2023-05-07 15:24 | Outpatient (BNVA) | payer MEDICAID, SELFPAY | PROVIDERS: Visit Provider Nurse Practitioner Family | DX: I87.2 Venous insufficiency (chronic) (peripheral) (principal); L97.821 Non-pressure chronic ulcer of other part of left lower leg limited to breakdown of skin | CPT/HCPCS: 97597; 97598; A6251; A6253 ==

== ENCOUNTER → 2023-05-09 11:03 | Outpatient (BNVA) | payer MEDICAID, SELFPAY | PROVIDERS: Visit Provider Nurse Practitioner Family | DX: I96 Gangrene, not elsewhere classified (principal); I87.2 Venous insufficiency (chronic) (peripheral); L97.822 Non-pressure chronic ulcer of other part of left lower leg with fat layer exposed | CPT/HCPCS: 11042; 11045; A6253 ==

== ENCOUNTER → 2023-05-16 14:01 | Outpatient (BNVA) | payer MEDICAID, SELFPAY | PROVIDERS: Visit Provider Thoracic Surgery (Cardiothoracic Vascular Surgery) | DX: I96 Gangrene, not elsewhere classified (principal); I87.2 Venous insufficiency (chronic) (peripheral); L97.821 Non-pressure chronic ulcer of other part of left lower leg limited to breakdown of skin | CPT/HCPCS: 97597; 97598; A6251; A6253 ==

== ENCOUNTER → 2023-05-23 13:52 | Outpatient (BNVA) | payer MEDICAID, SELFPAY | PROVIDERS: Visit Provider Thoracic Surgery (Cardiothoracic Vascular Surgery) | DX: I96 Gangrene, not elsewhere classified (principal); I87.2 Venous insufficiency (chronic) (peripheral); L97.421 Non-pressure chronic ulcer of left heel and midfoot limited to breakdown of skin; L89.892 Pressure ulcer of other site, stage 2 | CPT/HCPCS: 97597; 97598; A6252 ==

== ENCOUNTER → 2023-05-30 14:43 | Outpatient (BNVA) | payer MEDICAID, SELFPAY | PROVIDERS: Visit Provider Thoracic Surgery (Cardiothoracic Vascular Surgery) | DX: I87.2 Venous insufficiency (chronic) (peripheral) (principal); L97.821 Non-pressure chronic ulcer of other part of left lower leg limited to breakdown of skin; L89.892 Pressure ulcer of other site, stage 2 | CPT/HCPCS: 97597; 97598; A6251; A6253 ==

== ENCOUNTER → 2023-06-06 13:08 | Outpatient (BNVA) | payer MEDICAID, SELFPAY | PROVIDERS: Visit Provider Thoracic Surgery (Cardiothoracic Vascular Surgery) | DX: I96 Gangrene, not elsewhere classified (principal); I87.2 Venous insufficiency (chronic) (peripheral); L97.821 Non-pressure chronic ulcer of other part of left lower leg limited to breakdown of skin; Z09 Encounter for follow-up examination after completed treatment for conditions other than malignant neoplasm | CPT/HCPCS: 97597; 97598; A6253 ==

== ENCOUNTER → 2023-06-13 10:56 | Outpatient (BNVA) | payer MEDICAID, SELFPAY | PROVIDERS: Visit Provider Thoracic Surgery (Cardiothoracic Vascular Surgery) | DX: I96 Gangrene, not elsewhere classified (principal); I87.2 Venous insufficiency (chronic) (peripheral); L97.821 Non-pressure chronic ulcer of other part of left lower leg limited to breakdown of skin | CPT/HCPCS: 97597; 97598; A6251; A6253 ==

== ENCOUNTER → 2023-06-20 13:48 | Outpatient (BNVA) | payer MEDICAID, SELFPAY | PROVIDERS: Visit Provider Thoracic Surgery (Cardiothoracic Vascular Surgery) | DX: I96 Gangrene, not elsewhere classified (principal); I87.2 Venous insufficiency (chronic) (peripheral); L97.821 Non-pressure chronic ulcer of other part of left lower leg limited to breakdown of skin | CPT/HCPCS: 97597; 97598; A6253 ==

== ENCOUNTER → 2023-06-27 14:25 | Outpatient (BNVA) | payer MEDICAID, SELFPAY | PROVIDERS: Visit Provider Thoracic Surgery (Cardiothoracic Vascular Surgery) | DX: I87.2 Venous insufficiency (chronic) (peripheral) (principal); L97.821 Non-pressure chronic ulcer of other part of left lower leg limited to breakdown of skin | CPT/HCPCS: 97597; 97598; A6252 ==

== ENCOUNTER 2023-07-04 14:17 | Outpatient (CLI) | payer MEDICAID, SELFPAY ==
--- NOTE | 2023-07-04 14:21 | US_ITS ---
WS: [id number] US pelvic limited [id number] HISTORY: LCOALIZED ENLARGED LYMPH NODES COMPARISON: None available. Mass in the LEFT groin corresponds to an enlarged abnormal lymph node. Similar abnormal lymph nodes w ere noted on the CT from 06/01/2021 in the LEFT groin. There is loss of the normal fatty hilum. Mass m easures 4.8 x 1.4 x 2.6 cm with increased central vascularity. Additional postsurgical changes are no summer in the groin from prior hernia repair. IMPRESSION: 1. Mass in the LEFT inguinal region is probably an abnormal lymph node. The shape suggests this is a lymph node. There is no identifiable fatty hilum. Also of abnormal and mildly prominent lymph node w as noted on prior CT from 01/29/2022.
== END 2023-07-04 14:18 | disposition home or self-care (01) ==
LOC: RADOUTREAD 14:20
PROVIDERS: Visit Provider Nurse Practitioner Family
DX: R59.0 Localized enlarged lymph nodes (principal); I96 Gangrene, not elsewhere classified; I87.2 Venous insufficiency (chronic) (peripheral); L97.821 Non-pressure chronic ulcer of other part of left lower leg limited to breakdown of skin
CPT/HCPCS: 97597; 97598; A6220

== ENCOUNTER → 2023-07-18 09:25 | Outpatient (BNVA) | payer MEDICAID, SELFPAY | PROVIDERS: Visit Provider Thoracic Surgery (Cardiothoracic Vascular Surgery) | DX: I96 Gangrene, not elsewhere classified (principal); I87.2 Venous insufficiency (chronic) (peripheral); L97.821 Non-pressure chronic ulcer of other part of left lower leg limited to breakdown of skin | CPT/HCPCS: 97597; 97598; A6220 ==

== ENCOUNTER → 2023-07-25 14:20 | Outpatient (BNVA) | payer MEDICAID, SELFPAY | PROVIDERS: Visit Provider Thoracic Surgery (Cardiothoracic Vascular Surgery) | DX: I87.2 Venous insufficiency (chronic) (peripheral) (principal); L97.821 Non-pressure chronic ulcer of other part of left lower leg limited to breakdown of skin | CPT/HCPCS: 97597; 97598; A6253 ==

== ENCOUNTER → 2023-08-01 14:12 | Outpatient (BNVA) | payer MEDICAID, SELFPAY | PROVIDERS: Visit Provider Thoracic Surgery (Cardiothoracic Vascular Surgery) | DX: I96 Gangrene, not elsewhere classified (principal); I87.2 Venous insufficiency (chronic) (peripheral); L97.821 Non-pressure chronic ulcer of other part of left lower leg limited to breakdown of skin | CPT/HCPCS: 97597; 97598; A6253 ==

== ENCOUNTER → 2023-08-08 13:25 | Outpatient (BNVA) | payer MEDICAID, SELFPAY | PROVIDERS: Visit Provider Thoracic Surgery (Cardiothoracic Vascular Surgery) | DX: I96 Gangrene, not elsewhere classified (principal); I87.2 Venous insufficiency (chronic) (peripheral); L97.821 Non-pressure chronic ulcer of other part of left lower leg limited to breakdown of skin; L97.811 Non-pressure chronic ulcer of other part of right lower leg limited to breakdown of skin | CPT/HCPCS: 97597; 97598; A6220; A6251; A6252 ==

== ENCOUNTER → 2023-08-15 14:09 | Outpatient (BNVA) | payer MEDICAID, SELFPAY | PROVIDERS: Visit Provider Thoracic Surgery (Cardiothoracic Vascular Surgery) | DX: I96 Gangrene, not elsewhere classified (principal); I87.2 Venous insufficiency (chronic) (peripheral); L97.821 Non-pressure chronic ulcer of other part of left lower leg limited to breakdown of skin | CPT/HCPCS: 97597; 97598; A6252 ==

== ENCOUNTER 2023-08-19 10:06 | Outpatient (CLI) | payer MEDICAID, SELFPAY ==
[2023-08-21 07:19] LABS: Lymphoma Profile (BBPL) See Report
== END 2023-08-19 10:07 | disposition home or self-care (01) ==
LOC: LAB 10:08
PROVIDERS: Visit Provider Surgery
DX: R59.0 Localized enlarged lymph nodes (principal)
CPT/HCPCS: 87015; 87070; 87102; 87116; 87176; 87205; 87206; 87801; 88184; 88185

== ENCOUNTER → 2023-08-22 15:17 | Outpatient (BNVA) | payer MEDICAID, SELFPAY | PROVIDERS: Visit Provider Thoracic Surgery (Cardiothoracic Vascular Surgery) | DX: I87.2 Venous insufficiency (chronic) (peripheral) (principal); L97.821 Non-pressure chronic ulcer of other part of left lower leg limited to breakdown of skin | CPT/HCPCS: 97597; 97598; A6252 ==

== ENCOUNTER → 2023-08-29 14:59 | Outpatient (BNVA) | payer MEDICAID, SELFPAY | PROVIDERS: Visit Provider Thoracic Surgery (Cardiothoracic Vascular Surgery) | DX: I96 Gangrene, not elsewhere classified (principal); I87.2 Venous insufficiency (chronic) (peripheral); L97.821 Non-pressure chronic ulcer of other part of left lower leg limited to breakdown of skin | CPT/HCPCS: 97597; 97598 ==

== ENCOUNTER → 2023-09-05 14:56 | Outpatient (BNVA) | payer MEDICAID, SELFPAY | PROVIDERS: Visit Provider Thoracic Surgery (Cardiothoracic Vascular Surgery) | DX: I96 Gangrene, not elsewhere classified (principal); I87.2 Venous insufficiency (chronic) (peripheral); L97.821 Non-pressure chronic ulcer of other part of left lower leg limited to breakdown of skin | CPT/HCPCS: 97597; 97598 ==

== ENCOUNTER → 2023-09-12 14:58 | Outpatient (BNVA) | payer MEDICAID, SELFPAY | PROVIDERS: Visit Provider Thoracic Surgery (Cardiothoracic Vascular Surgery) | DX: I96 Gangrene, not elsewhere classified (principal); I87.2 Venous insufficiency (chronic) (peripheral); L97.821 Non-pressure chronic ulcer of other part of left lower leg limited to breakdown of skin | CPT/HCPCS: 97597; 97598; A6252 ==

== ENCOUNTER → 2023-09-19 09:45 | Outpatient (BNVA) | payer MEDICAID, SELFPAY | PROVIDERS: Visit Provider Thoracic Surgery (Cardiothoracic Vascular Surgery) | DX: I87.2 Venous insufficiency (chronic) (peripheral) (principal); L97.821 Non-pressure chronic ulcer of other part of left lower leg limited to breakdown of skin | CPT/HCPCS: 97597; 97598; A6253 ==

== ENCOUNTER → 2023-10-02 15:24 | Outpatient (BNVA) | payer MEDICAID, SELFPAY | PROVIDERS: Visit Provider Thoracic Surgery (Cardiothoracic Vascular Surgery) | DX: I96 Gangrene, not elsewhere classified (principal); I87.2 Venous insufficiency (chronic) (peripheral); L97.821 Non-pressure chronic ulcer of other part of left lower leg limited to breakdown of skin | CPT/HCPCS: 97597; 97598 ==

== ENCOUNTER → 2023-10-11 10:38 | Outpatient (BNVA) | payer MEDICAID, SELFPAY | PROVIDERS: Visit Provider Nurse Practitioner Family | DX: I87.2 Venous insufficiency (chronic) (peripheral) (principal); L97.822 Non-pressure chronic ulcer of other part of left lower leg with fat layer exposed; Z09 Encounter for follow-up examination after completed treatment for conditions other than malignant neoplasm | CPT/HCPCS: 11042; 11045; 87070; 87176; 87186; 87205 ==

== ENCOUNTER → 2023-10-25 10:12 | Outpatient (BNVA) | payer MEDICAID, SELFPAY | PROVIDERS: Visit Provider Thoracic Surgery (Cardiothoracic Vascular Surgery) | DX: I87.2 Venous insufficiency (chronic) (peripheral) (principal); L97.821 Non-pressure chronic ulcer of other part of left lower leg limited to breakdown of skin | CPT/HCPCS: 97597; 97598 ==

== ENCOUNTER → 2023-11-08 12:03 | Outpatient (BNVA) | payer MEDICAID, SELFPAY | PROVIDERS: Visit Provider Thoracic Surgery (Cardiothoracic Vascular Surgery) | DX: I96 Gangrene, not elsewhere classified (principal); I87.2 Venous insufficiency (chronic) (peripheral); L97.821 Non-pressure chronic ulcer of other part of left lower leg limited to breakdown of skin | CPT/HCPCS: 97597; 97598 ==

== ENCOUNTER → 2023-11-15 11:03 | Outpatient (BNVA) | payer MEDICAID, SELFPAY | PROVIDERS: Visit Provider Thoracic Surgery (Cardiothoracic Vascular Surgery) | DX: I96 Gangrene, not elsewhere classified (principal); I87.2 Venous insufficiency (chronic) (peripheral); L97.821 Non-pressure chronic ulcer of other part of left lower leg limited to breakdown of skin | CPT/HCPCS: 97597; 97598 ==

== ENCOUNTER → 2023-11-21 10:12 | Outpatient (BNVA) | payer MEDICAID, SELFPAY | PROVIDERS: Visit Provider Thoracic Surgery (Cardiothoracic Vascular Surgery) | DX: I96 Gangrene, not elsewhere classified (principal); I87.2 Venous insufficiency (chronic) (peripheral); L97.821 Non-pressure chronic ulcer of other part of left lower leg limited to breakdown of skin | CPT/HCPCS: 97597; 97598 ==

== ENCOUNTER → 2023-11-28 10:20 | Outpatient (BNVA) | payer MEDICAID, SELFPAY | PROVIDERS: Visit Provider Thoracic Surgery (Cardiothoracic Vascular Surgery) | DX: I96 Gangrene, not elsewhere classified (principal); I87.2 Venous insufficiency (chronic) (peripheral); L97.821 Non-pressure chronic ulcer of other part of left lower leg limited to breakdown of skin | CPT/HCPCS: 97597; 97598 ==

== ENCOUNTER → 2023-12-05 13:00 | Outpatient (BNVA) | payer MEDICAID, SELFPAY | PROVIDERS: Visit Provider Thoracic Surgery (Cardiothoracic Vascular Surgery) | DX: I96 Gangrene, not elsewhere classified (principal); I87.2 Venous insufficiency (chronic) (peripheral); L97.821 Non-pressure chronic ulcer of other part of left lower leg limited to breakdown of skin | CPT/HCPCS: 97597; 97598 ==

== ENCOUNTER → 2023-12-12 13:00 | Outpatient (BNVA) | payer MEDICAID, SELFPAY | PROVIDERS: Visit Provider Thoracic Surgery (Cardiothoracic Vascular Surgery) | DX: I96 Gangrene, not elsewhere classified (principal); I87.2 Venous insufficiency (chronic) (peripheral); L97.821 Non-pressure chronic ulcer of other part of left lower leg limited to breakdown of skin | CPT/HCPCS: 97597; 97598; A6253 ==

== ENCOUNTER → 2023-12-19 13:00 | Outpatient (BNVA) | payer MEDICAID, SELFPAY | PROVIDERS: Visit Provider Thoracic Surgery (Cardiothoracic Vascular Surgery) | DX: I96 Gangrene, not elsewhere classified (principal); I87.2 Venous insufficiency (chronic) (peripheral); L97.821 Non-pressure chronic ulcer of other part of left lower leg limited to breakdown of skin | CPT/HCPCS: 97597; 97598; A6251 ==

== ENCOUNTER → 2023-12-26 13:19 | Outpatient (BNVA) | payer MEDICAID, SELFPAY | PROVIDERS: Visit Provider Thoracic Surgery (Cardiothoracic Vascular Surgery) | DX: I96 Gangrene, not elsewhere classified (principal); I87.2 Venous insufficiency (chronic) (peripheral); L97.821 Non-pressure chronic ulcer of other part of left lower leg limited to breakdown of skin | CPT/HCPCS: 97597; 97598; A6252 ==

== ENCOUNTER → 2024-01-03 11:15 | Outpatient (BNVA) | payer MEDICAID, SELFPAY | PROVIDERS: Visit Provider Thoracic Surgery (Cardiothoracic Vascular Surgery) | DX: I96 Gangrene, not elsewhere classified (principal); I87.2 Venous insufficiency (chronic) (peripheral); L97.821 Non-pressure chronic ulcer of other part of left lower leg limited to breakdown of skin | CPT/HCPCS: 97597; 97598; A6197; A6253 ==

== ENCOUNTER → 2024-01-10 10:15 | Outpatient (BNVA) | payer MEDICAID, SELFPAY | PROVIDERS: Visit Provider Thoracic Surgery (Cardiothoracic Vascular Surgery) | DX: I96 Gangrene, not elsewhere classified (principal); I87.2 Venous insufficiency (chronic) (peripheral); L97.821 Non-pressure chronic ulcer of other part of left lower leg limited to breakdown of skin | CPT/HCPCS: 97597; 97598; A6197 ==

== ENCOUNTER → 2024-01-17 10:15 | Outpatient (BNVA) | payer MEDICAID, SELFPAY | PROVIDERS: Visit Provider Thoracic Surgery (Cardiothoracic Vascular Surgery) | DX: I96 Gangrene, not elsewhere classified (principal); I87.2 Venous insufficiency (chronic) (peripheral); L97.821 Non-pressure chronic ulcer of other part of left lower leg limited to breakdown of skin | CPT/HCPCS: 87070; 87077; 87176; 87186; 87205; 97597; 97598; A6248; A6253 ==

== ENCOUNTER → 2024-01-22 15:35 | Outpatient (BNVA) | payer MEDICAID, SELFPAY | PROVIDERS: Visit Provider Thoracic Surgery (Cardiothoracic Vascular Surgery) | DX: I96 Gangrene, not elsewhere classified (principal); I87.2 Venous insufficiency (chronic) (peripheral); L97.821 Non-pressure chronic ulcer of other part of left lower leg limited to breakdown of skin | CPT/HCPCS: 99214 ==

== ENCOUNTER → 2024-01-24 10:45 | Outpatient (BNVA) | payer MEDICAID, SELFPAY | PROVIDERS: Visit Provider Thoracic Surgery (Cardiothoracic Vascular Surgery) | DX: I96 Gangrene, not elsewhere classified (principal); I87.2 Venous insufficiency (chronic) (peripheral); L97.821 Non-pressure chronic ulcer of other part of left lower leg limited to breakdown of skin | CPT/HCPCS: 97597; 97598; A6197; A6252 ==

== ENCOUNTER → 2024-02-14 10:10 | Outpatient (BNVA) | payer MEDICAID, SELFPAY | PROVIDERS: Visit Provider Thoracic Surgery (Cardiothoracic Vascular Surgery) | DX: I96 Gangrene, not elsewhere classified (principal); I87.2 Venous insufficiency (chronic) (peripheral); L97.822 Non-pressure chronic ulcer of other part of left lower leg with fat layer exposed | CPT/HCPCS: 97597; 97598 ==

== ENCOUNTER → 2024-02-20 13:45 | Outpatient (BNVA) | payer MEDICAID, SELFPAY | PROVIDERS: Visit Provider Thoracic Surgery (Cardiothoracic Vascular Surgery) | DX: I96 Gangrene, not elsewhere classified (principal); I87.2 Venous insufficiency (chronic) (peripheral); L97.821 Non-pressure chronic ulcer of other part of left lower leg limited to breakdown of skin | CPT/HCPCS: 97597; 97598; A6197; A6253 ==

== ENCOUNTER → 2024-02-27 13:45 | Outpatient (BNVA) | payer MEDICAID, SELFPAY | PROVIDERS: Visit Provider Thoracic Surgery (Cardiothoracic Vascular Surgery) | DX: I96 Gangrene, not elsewhere classified (principal); I87.2 Venous insufficiency (chronic) (peripheral); L97.821 Non-pressure chronic ulcer of other part of left lower leg limited to breakdown of skin | CPT/HCPCS: 29581; 97597; 97598; A6197; A6251; A6253 ==

== ENCOUNTER → 2024-03-12 14:20 | Outpatient (BNVA) | payer MEDICAID, SELFPAY | PROVIDERS: Visit Provider Thoracic Surgery (Cardiothoracic Vascular Surgery) | DX: I96 Gangrene, not elsewhere classified (principal); I87.2 Venous insufficiency (chronic) (peripheral); L97.822 Non-pressure chronic ulcer of other part of left lower leg with fat layer exposed; Z09 Encounter for follow-up examination after completed treatment for conditions other than malignant neoplasm | CPT/HCPCS: 11042; 11045; A6252 ==

== ENCOUNTER → 2024-03-19 14:23 | Outpatient (BNVA) | payer MEDICAID, SELFPAY | PROVIDERS: Visit Provider Thoracic Surgery (Cardiothoracic Vascular Surgery) | DX: I96 Gangrene, not elsewhere classified (principal); I87.2 Venous insufficiency (chronic) (peripheral); L97.821 Non-pressure chronic ulcer of other part of left lower leg limited to breakdown of skin | CPT/HCPCS: 11042; 11045; 87070; 87077; 87176; 87186; 87205 ==

== ENCOUNTER → 2024-03-26 14:05 | Outpatient (BNVA) | payer MEDICAID, SELFPAY | PROVIDERS: Visit Provider Thoracic Surgery (Cardiothoracic Vascular Surgery) | DX: I96 Gangrene, not elsewhere classified (principal); I87.2 Venous insufficiency (chronic) (peripheral); L97.822 Non-pressure chronic ulcer of other part of left lower leg with fat layer exposed | CPT/HCPCS: 11042; 11045 ==

== ENCOUNTER → 2024-04-09 15:45 | Outpatient (BNVA) | payer MEDICAID, SELFPAY | PROVIDERS: Visit Provider Thoracic Surgery (Cardiothoracic Vascular Surgery) | DX: I96 Gangrene, not elsewhere classified (principal); I87.2 Venous insufficiency (chronic) (peripheral); L97.822 Non-pressure chronic ulcer of other part of left lower leg with fat layer exposed | CPT/HCPCS: 11042; 11045; A6253 ==

== ENCOUNTER → 2024-04-16 15:15 | Outpatient (BNVA) | payer MEDICAID, SELFPAY | PROVIDERS: Visit Provider Thoracic Surgery (Cardiothoracic Vascular Surgery) | DX: I96 Gangrene, not elsewhere classified (principal); I87.2 Venous insufficiency (chronic) (peripheral); L97.822 Non-pressure chronic ulcer of other part of left lower leg with fat layer exposed | CPT/HCPCS: 11042; 11045 ==

== ENCOUNTER → 2024-04-23 15:28 | Outpatient (BNVA) | payer MEDICAID, SELFPAY | PROVIDERS: Visit Provider Thoracic Surgery (Cardiothoracic Vascular Surgery) | DX: I96 Gangrene, not elsewhere classified (principal); I87.2 Venous insufficiency (chronic) (peripheral); L97.822 Non-pressure chronic ulcer of other part of left lower leg with fat layer exposed | CPT/HCPCS: 11042; 11045; A6197; A6253 ==

== ENCOUNTER → 2024-04-30 15:09 | Outpatient (BNVA) | payer MEDICAID, SELFPAY | DX: I96 Gangrene, not elsewhere classified (principal); I87.2 Venous insufficiency (chronic) (peripheral); L97.822 Non-pressure chronic ulcer of other part of left lower leg with fat layer exposed | CPT/HCPCS: 11042; 11045 ==

== ENCOUNTER → 2024-05-07 14:05 | Outpatient (BNVA) | payer MEDICAID, SELFPAY | DX: I96 Gangrene, not elsewhere classified (principal); I87.2 Venous insufficiency (chronic) (peripheral); L97.822 Non-pressure chronic ulcer of other part of left lower leg with fat layer exposed | CPT/HCPCS: 11042; 11045 ==

== ENCOUNTER → 2024-05-14 15:05 | Outpatient (BNVA) | payer MEDICAID, SELFPAY | PROVIDERS: Visit Provider Thoracic Surgery (Cardiothoracic Vascular Surgery) | DX: I96 Gangrene, not elsewhere classified (principal); I87.2 Venous insufficiency (chronic) (peripheral); L97.821 Non-pressure chronic ulcer of other part of left lower leg limited to breakdown of skin | CPT/HCPCS: 11042; 11045; A6197; A6253 ==

== ENCOUNTER → 2024-05-20 14:12 | Outpatient (BNVA) | payer MEDICAID, SELFPAY | DX: I96 Gangrene, not elsewhere classified (principal); I87.2 Venous insufficiency (chronic) (peripheral); L97.822 Non-pressure chronic ulcer of other part of left lower leg with fat layer exposed | CPT/HCPCS: 11042; 11045; A6252 ==

== ENCOUNTER → 2024-06-03 14:45 | Outpatient (BNVA) | payer MEDICAID, SELFPAY | DX: I96 Gangrene, not elsewhere classified (principal); I87.2 Venous insufficiency (chronic) (peripheral); L97.822 Non-pressure chronic ulcer of other part of left lower leg with fat layer exposed | CPT/HCPCS: 11042; 11045; 29581; A6197; A6253 ==

== ENCOUNTER → 2024-06-10 14:20 | Outpatient (BNVA) | payer MEDICAID, SELFPAY | DX: I96 Gangrene, not elsewhere classified (principal); I87.2 Venous insufficiency (chronic) (peripheral); L97.822 Non-pressure chronic ulcer of other part of left lower leg with fat layer exposed | CPT/HCPCS: 11042; 29581 ==

== ENCOUNTER → 2024-06-17 15:27 | Outpatient (BNVA) | payer MEDICAID, SELFPAY | PROVIDERS: Visit Provider Thoracic Surgery (Cardiothoracic Vascular Surgery) | DX: I96 Gangrene, not elsewhere classified (principal); I87.2 Venous insufficiency (chronic) (peripheral); L97.822 Non-pressure chronic ulcer of other part of left lower leg with fat layer exposed | CPT/HCPCS: 11042; 29581; A6197; A6252 ==

== ENCOUNTER → 2024-06-24 15:18 | Outpatient (BNVA) | payer MEDICAID, SELFPAY | DX: I96 Gangrene, not elsewhere classified (principal); I87.2 Venous insufficiency (chronic) (peripheral); L97.822 Non-pressure chronic ulcer of other part of left lower leg with fat layer exposed | CPT/HCPCS: 11042; A6197; A6253 ==

== ENCOUNTER → 2024-07-01 15:48 | Outpatient (BNVA) | payer MEDICAID, SELFPAY | PROVIDERS: Visit Provider Thoracic Surgery (Cardiothoracic Vascular Surgery) | DX: I96 Gangrene, not elsewhere classified (principal); I87.2 Venous insufficiency (chronic) (peripheral); L97.821 Non-pressure chronic ulcer of other part of left lower leg limited to breakdown of skin | CPT/HCPCS: 29581; 97597 ==

== ENCOUNTER → 2024-07-08 15:20 | Outpatient (BNVA) | payer MEDICAID, SELFPAY | PROVIDERS: Visit Provider Thoracic Surgery (Cardiothoracic Vascular Surgery) | DX: I96 Gangrene, not elsewhere classified (principal); I87.2 Venous insufficiency (chronic) (peripheral); L97.821 Non-pressure chronic ulcer of other part of left lower leg limited to breakdown of skin | CPT/HCPCS: 97597; 97598; A6197; A6253 ==

== ENCOUNTER → 2024-07-15 15:45 | Outpatient (BNVA) | payer MEDICAID, SELFPAY | PROVIDERS: PCP Nurse Practitioner Family; Visit Provider Thoracic Surgery (Cardiothoracic Vascular Surgery) | DX: I96 Gangrene, not elsewhere classified (principal); I87.2 Venous insufficiency (chronic) (peripheral); L97.821 Non-pressure chronic ulcer of other part of left lower leg limited to breakdown of skin | CPT/HCPCS: 97597; 97598 ==

== ENCOUNTER → 2024-07-22 15:08 | Outpatient (BNVA) | payer MEDICAID, SELFPAY | PROVIDERS: PCP Nurse Practitioner Family | DX: E11.52 Type 2 diabetes mellitus with diabetic peripheral angiopathy with gangrene (principal); E11.622 Type 2 diabetes mellitus with other skin ulcer; L97.822 Non-pressure chronic ulcer of other part of left lower leg with fat layer exposed | CPT/HCPCS: 11042; 11045; A6197; A6253 ==

== ENCOUNTER → 2024-07-29 16:06 | Outpatient (BNVA) | payer MEDICAID, SELFPAY | PROVIDERS: PCP Nurse Practitioner Family; Visit Provider Thoracic Surgery (Cardiothoracic Vascular Surgery) | DX: I87.2 Venous insufficiency (chronic) (peripheral) (principal); L97.821 Non-pressure chronic ulcer of other part of left lower leg limited to breakdown of skin | CPT/HCPCS: 15271; 15272; A6250; A6253 ==

== ENCOUNTER → 2024-08-05 13:13 | Outpatient (BNVA) | payer MEDICAID, SELFPAY | PROVIDERS: PCP Nurse Practitioner Family; Visit Provider Thoracic Surgery (Cardiothoracic Vascular Surgery) | DX: I96 Gangrene, not elsewhere classified (principal); I87.2 Venous insufficiency (chronic) (peripheral); L97.821 Non-pressure chronic ulcer of other part of left lower leg limited to breakdown of skin | CPT/HCPCS: 15271; 15272; A6021; A6250; A6253 ==

== ENCOUNTER → 2024-08-07 11:47 | Outpatient (BNVA) | payer MEDICAID, SELFPAY | PROVIDERS: PCP Nurse Practitioner Family; Visit Provider Thoracic Surgery (Cardiothoracic Vascular Surgery) | DX: I96 Gangrene, not elsewhere classified (principal); I87.2 Venous insufficiency (chronic) (peripheral); L97.821 Non-pressure chronic ulcer of other part of left lower leg limited to breakdown of skin | CPT/HCPCS: 29581; A6253 ==

== ENCOUNTER → 2024-08-12 13:52 | Outpatient (BNVA) | payer MEDICAID, SELFPAY | PROVIDERS: PCP Nurse Practitioner Family; Visit Provider Thoracic Surgery (Cardiothoracic Vascular Surgery) | DX: I96 Gangrene, not elsewhere classified (principal); I87.2 Venous insufficiency (chronic) (peripheral); L97.821 Non-pressure chronic ulcer of other part of left lower leg limited to breakdown of skin | CPT/HCPCS: 15271; 15272; A6250; A6253 ==

== ENCOUNTER → 2024-08-19 13:36 | Outpatient (BNVA) | payer MEDICAID, SELFPAY | PROVIDERS: PCP Nurse Practitioner Family; Visit Provider Thoracic Surgery (Cardiothoracic Vascular Surgery) | DX: I96 Gangrene, not elsewhere classified (principal); I87.2 Venous insufficiency (chronic) (peripheral); L97.821 Non-pressure chronic ulcer of other part of left lower leg limited to breakdown of skin | CPT/HCPCS: 15271; 15272; Q4101 ==

== ENCOUNTER 2024-08-21 15:37 | Emergency (ER) | payer MEDICAID, SELFPAY ==
[2024-08-21] VITALS (9 sets, daily range): BP systolic 134–168; BP diastolic 72–86; PULSE 45–69; RESP 16–18; TEMP 36.7; O2SAT 97–100
[2024-08-21 17:01] LABS: Basophils # 0.1 10^3/uL (0.0-0.1); Eosinophils # 0.3 10^3/uL (0.0-0.8); Eosinophils % 4.3 %; Hematocrit 37.7 % (37-53); Lymphocytes # 1.5 10^3/uL (0.8-4.8); Lymphocytes % 24.3 %; Mean Corpuscular HGB Conc 32.1 g/dL (30-55); Mean Corpuscular Hemoglobin 30.9 pg (27-33); Mean Corpuscular Volume 96.2 fl (82-101); Monocytes # 0.6 10^3/uL (0.2-0.9); Monocytes % 10.6 %; Neutrophils # 3.57 10^3/uL (1.8-7.7); Neutrophils % 59.3 %; Nucleated Red Blood Cells % 0 %; Platelet Count 207 10^3/cmm (157-399); Red Blood Count 3.92 10^6/uL (3.85-5.65); White Blood Count 6.02 10^3/uL (3.29-11.43)
--- NOTE | 2024-08-21 17:10 | ED_ITS ---
HPI - Abdominal Pain 2 General: Chief Complaint: Abdominal Pain Stated Complaint: vomitting and abdominal area pain Time Seen by Provider: 08/21/24 16:34 History of Present Illness: Jose Weldon presents to the emergency department with a 6-month history of persistent vomiting and recent onset of hematemesis. The patient has a history of significant esophageal dysmotility and previous stomach ulcers. Mr. Weldon reports vomiting approximately 14 times every night for the past 6 months. He experiences emesis after consuming water, milk, or soda. Last night, he vomited a significant amount of blood for the first time, which prompted his visit to the ED. He has been unable to keep down any fluids, including water, soda, and milk. The patient also complains of severe abdominal pain, particularly when lying down. He finds some relief by holding his stomach while in bed. Mr. Weldon reports changes in his stool color, noting it is sometimes black or white. He struggles with constipation and uses stool softeners and laxatives to manage this issue. Mr. Weldon mentions a history of stomach ulcers, having had two large ulcers in the past. He has been under the care of Dr. Noland, who diagnosed him with significant esophageal dysmotility. The patient attempted a colonoscopy last year, which was unsuccessful. During that procedure, a polyp was found, and there was a concern for possible cancer. A follow-up screening was recommended in 5 years, but it has been longer than that timeframe. Related Data Home Medications ?Medication ?Instructions ?Recorded ?Confirmed aspirin 81 mg tablet,delayed 81 mg PO DAILY 05/11/20 0 08/21/24 release famotidine 20 mg tablet 20 mg PO BID 08/21/24 pantoprazole 40 mg tablet,delayed 40 mg PO DAILY 08/2108/21/24 release Allergies Allergy/AdvReac Type Severity Reaction Status Date / Time hydrocodone Allergy Unknown ADR/ALGY-Pa Verified 08/21/24 15:59 lpitations chlorpromazine (From Allergy ADR-Muscle Verified 08/21/24 15:59 Thorazine) Pain diazepam (From Valium) Allergy ALGY-Difficulty Verified 08/21/24 15:59 Swallowing zinc oxide Allergy RED/SWETS/SKIN Verified 08/21/24 15:59 IRRITATION Review of Systems 2 General: Reports: 10 or more systems reviewed and unremarkable except in HPI and below PFSH ED 2 PFSH: Medical History Abdominal wall hernia Bladder diverticulum Bladder stone History of MRSA infection Lipodermatosclerosis of left lower extremity Venous stasis of both lower extremities Surgical History History of surgery on arm Hx of cataract extraction RIGHT EYE Hx of hernia repair Hx of tonsillectomy Status post transurethral resection of prostate Family History Mother Cancer Father Cancer Other CAD (coronary artery disease) Diabetes Social History Smoking and tobacco/nicotine status: former use of tobacco/nicotine Second hand smoke exposure: Yes Alcohol intake: never Substance/Drug Use: never Physical Exam 2 Const: COMMON NORMALS: no acute distress, patient oriented x3, healthy appearing, alert and well nourished HENMT: COMMON NORMALS: normocephalic HEAD & SCALP: normocephalic Eye: COMMON NORMALS: EOMs intact bilaterally Neck/C-Spine: COMMON NORMALS: full ROM and supple Resp: COMMON NORMALS: normal respiratory effort, No retractions and clear to auscultation bilaterally AUSCULTATION: clear to auscultation bilaterally Cardio: COMMON NORMALS: regular rate, regular rhythm, No gallops present (Cardio) and No murmurs present (Cardio) RATE: regular rate RHYTHM: r egular rhythm GI: COMMON NORMALS: Soft to palpation; negative for non-tender (Diffuse tenderness without rebound or guarding) P ALPATION: Yes Soft to palpation Extremity: GENERAL: Yes normal exam except as noted Neuro: COMMON NORMALS: patient oriented x3 SENSORIUM/ORIENTATION: Yes alert Skin: COMMON NORMALS: no rashes or lesions noted GENERAL SKIN EXAM: no rashes or lesions noted Course 2 Vital Signs: Vital signs: Vital Signs Temperature 98.0 F 08/21/24 15:53 Pulse Rate 49 L 08/21/24 19:44 Respiratory Rate 16 08/21/24 19:44 Blood Pressure 162/82 08/21/24 19:44 Pulse Oximetry 99 08/21/24 19:44 Oxygen Delivery Me thod Room Air 08/21/24 15:53 MDM - Abdominal Pain Medical Decision Making 79-year-old male presents to the emergency department for evaluation of nausea, vomiting, and hematemesis. His nausea and vomiting has been going on for many many months. However, the hematemesis was new. He did not have any episodes of vomiting blood today. Patient's CT abdomen/pelvis with contrast is negative. His BUN was not elevated. His hemoglobin and hematocrit were normal. Vital signs were stable during his stay here with the exception of elevated blood pressure. Discussed with the patient that it is not likely that he has a significant bleeding ulcer or other intra-abdominal bleeding with the workup received here in the emergency department. Encouraged him to follow-up with GI for further management of his nausea and vomiting. Return precautions were discussed and the patient was discharged home in good condition. Lab Data 08/21/24 16:56 08/21/24 16:56 Labs/Radiology: Radiology Impressions Abdomen/Pelvis CT 08/21/24 17:28 IMPRESSION: There are no acute concerning abnormalities. COMMENTS: Consistent with the [employer]'s Incidental Findings Committee white paper (J Am Elizabeth Radiol 2018): Any incidental renal lesion less than 1 cm or classified as too small to characterize, or any incidental cystic renal lesion characterized as simple-appearing, is likely benign. No follow-up imaging is recommended for these lesions per consensus recommendations based on imaging criteria. Laboratory Results WBC 6.02 10^3/uL (3.29-11.43) 08/21/24 16:56 RBC 3.92 10^6/uL (3.85-5.65) 08/21/24 16:56 Hgb 12.10 g/dL (11.27-16.99) 08/21/24 16:56 Hct 37.7 % (37-53) 08/21/24 16:56 MCV 96.2 fl (82-101) 08/21/24 16:56 MCH 30.9 pg (27-33) 08/21/24 16:56 MCHC 32.1 g/dL (30-55) 08/21/24 16:56 RDW 14.0 % (12.1-15.1) 08/21/24 16:56 Plt Count 207 10^3/cmm (157-399) 08/21/24 16:56 MPV 10.0 fL (7.4-10.4) 08/21/24 16:56 Neut % (Auto) 59.3 % 08/21/24 16:56 Lymph % (Auto) 24.3 % 08/21/24 16:56 [place] % (Auto) 10.6 % 08/21/24 16:56 Eos % (Auto) 4.3 % 08/21/24 16:56 Baso % (Auto) 1.0 % 08/21/24 16:56 Neut # (Auto) 3.57 10^3/uL (1.8-7.7) 08/21/24 16:56 Lymph # (Auto) 1.5 10^3/uL (0.8-4.8) 08/21/24 16:56 [place] # (Auto) 0.6 10^3/uL (0.2-0.9) 08/21/24 16:56 Eos # (Auto) 0.3 10^3/uL (0.0-0.8) 08/21/24 16:56 Baso # (Auto) 0.1 10^3/uL (0.0-0.1) 08/21/24 16:56 Nucleated RBC % (auto) 0 % 08/21/24 16:56 Nucleated RBCs # 0.0 /100WBC 08/21/24 16:56 Sodium 145 mmol/L (136-145) 08/21/24 16:56 Potassium 4.1 mmol/L (3.5-5.1) 08/21/24 16:56 Chloride 108 mmol/L (98-107) H 08/21/24 16:56 Carbon Dioxide 27 mmol/L (22-29) 08/21/24 16:56 Anion Gap 14.1 (5-19) 08/21/24 16:56 BUN 14 mg/dL (8-23) 08/21/24 16:56 Creatinine 0.6 mg/dL (0.7-1.2) L 08/21/24 16:56 GFR Calculation Not Reportable 08/21/24 16:56 Glucose 82 mg/dL (65-115) 08/21/24 16:56 Calculated Osmolality 300 mOsm/kg (285-295) H 08/21/24 16:56 Calcium 8.5 mg/dL (8.5-10.5) 08/21/24 16:56 Total Bilirubin 0.5 mg/dL (0.15-1.2) 08/21/24 16:56 AST 17 U/L (0-40) 08/21/24 16:56 ALT 11 U/L (0-41) 08/21/24 16:56 Alkaline Phosphatase 118 U/L (40-130) 08/21/24 16:56 Total Protein 6.3 g/dL (6.6-8.7) L 08/21/24 16:56 Albumin 3.7 g/dL (3.5-5.2) 08/21/24 16:56 Globulin 2.6 g/dL (1.3-4.6) 08/21/24 16:56 All radiology interpretation(s) finalized by discharge Discharge Plan Discharge Patient Disposition: Home Clinical Impression: Nausea & vomiting Qualifiers: Vomiting type: unspecified Qualified Code(s): R11.2 - Nausea with vomiting, unspecified Hematemesis Qualifiers: Nausea presence: with nausea Qualified Code(s): K92.0 - Hematemesis Condition: Stable Prescriptions: No Action aspirin 81 mg tablet,delayed release (DR/EC) 81 mg PO DAILY famotidine 20 mg tablet 20 mg PO BID pantoprazole 40 mg tablet,delayed release (DR/EC) 40 mg PO DAILY Discharge Orders: Discharge ED (Routine); Ordered 08/21/24 Ordered By: Otilio Law Referrals: Shelbi Chaudhary FNP [Primary Care Provider, Unknown] Discharge Diet: Advance as tolerated Discharge Activity: Increase activity as tolerated Patient Instructions: Opioid Safety, Pain Management, Vomiting - Adult Activity Restrictions/Additional Instructions: Please return the emergency department with any new or worsening symptoms. Please follow-up with GI as we discussed for follow-up on chronic nausea and vomiting. Print Language: Citizen Of [place] Coding Level of Care Code ED [employer] Manager for Norah Martinez
--- NOTE | 2024-08-21 17:28 | CTR_ITS ---
PROCEDURE INFORMATION: Exam: CT Abdomen And Pelvis With Contrast Exam date and time: 08/21/2024 5:56 PM Age: 79 years old Clinical indication: Nausea and vomiting; Abdominal pain; Generalized; Prior surgery; Surgery date: 6+ months; Surgery type: Hernia repair. Prostate resection. Diffuse abd pain with n/v; Additional info: Diffuse abdominal pain with recent history of hematemesis, please wait for kidney function test to be complete TECHNIQUE: Imaging protocol: Computed tomography of the abdomen and pelvis with contrast. Radiation optimization: All CT scans at this facility use at least one of these dose optimization techniques: automated exposure control; mA and/or kV adjustment per patient size (includes targeted exams where dose is matched to clinical indication); or iterative reconstruction. Contrast material: OMNI 350; Contrast volume: 100 ml; Contrast route: INTRAVENOUS (IV); COMPARISON: CT abdomen pelvis w con* [id number] 01/29/2022 12:02 PM RADIATION DOSE METRICS: Total DLP (mGy-cm): 373.33 FINDINGS: Liver: Normal. No mass. Gallbladder and biliary ducts: Normal. No calcified stones. No ductal dilation. Pancreas: There are punctate calcifications in the pancreas. No acute pancreatitis. Spleen: Normal. No splenomegaly. Adrenal glands: Normal. No mass. Kidneys and ureters: There is calcification in the superior right kidney. No hydronephrosis. There are right renal cysts. Stomach and bowel: Unremarkable. No obstruction. No mucosal thickening. Appendix: No evidence of appendicitis. Intraperitoneal space: Unremarkable. No free air. No significant fluid collection. Vasculature: Unremarkable. No abdominal aortic aneurysm. Lymph nodes: Unremarkable. No enlarged lymph nodes. Urinary bladder: There is a posterior right bladder diverticulum. Reproductive: Unremarkable as visualized. Bones/joints: Degenerative change is identified in the spine. There is no evidence for acute fracture or malalignment. There is deformity of the right femoral head. 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 Soft tissues: Unremarkable. CT/CT abdomen pelvis w con* [id number] IMPRESSION: There are no acute concerning abnormalities. COMMENTS: Consistent with the [employer] [place]'s Incidental Findings Committee white paper (J Am Elizabeth Radiol 2018): Any incidental renal lesion less than 1 cm or classified as too small to characterize, or any incidental cystic renal lesion characterized as simple-appearing, is likely benign. No follow-up imaging is recommended for these lesions per consensus recommendations based on imaging criteria.
[2024-08-21 17:29] LABS: Alanine Aminotransferase 11 U/L (0-41); Albumin Level 3.7 g/dL (3.5-5.2); Alkaline Phosphatase 118 U/L (40-130); Anion Gap 14.1 (5-19); Aspartate Amino Transferase 17 U/L (0-40); Blood Urea Nitrogen 14 mg/dL (8-23); Calcium 8.5 mg/dL (8.5-10.5); Carbon Dioxide 27 mmol/L (22-29); Chloride 108 mmol/L (98-107); Creatinine Clr Calc Pharmacy 75.0342; Globulin 2.6 g/dL (1.3-4.6); Glucose 82 mg/dL (65-115); Osmolality Calculated 300 mOsm/kg (285-295); Potassium 4.1 mmol/L (3.5-5.1); Sodium 145 mmol/L (136-145); Total Bilirubin 0.5 mg/dL (0.15-1.2); Total Protein 6.3 g/dL (6.6-8.7)
[2024-08-21] MEDS: iohexol 350 mg/mL 500 mL Btl (per mL) IV (17:56)
== END 2024-08-21 20:02 | disposition home or self-care (01) ==
PROVIDERS: Emergency Provider General Practice; PCP Nurse Practitioner Family
DX: K92.0 Hematemesis (principal); Z79.82 Long term (current) use of aspirin; Z87.891 Personal history of nicotine dependence
CPT/HCPCS: 36415; 74177; 80053; 85025; 99285

== ENCOUNTER → 2024-08-26 14:36 | Outpatient (BNVA) | payer MEDICAID, SELFPAY | PROVIDERS: PCP Nurse Practitioner Family; Visit Provider Thoracic Surgery (Cardiothoracic Vascular Surgery) | DX: I96 Gangrene, not elsewhere classified (principal); I87.2 Venous insufficiency (chronic) (peripheral); L97.821 Non-pressure chronic ulcer of other part of left lower leg limited to breakdown of skin | CPT/HCPCS: 29581; A6253 ==

== ENCOUNTER → 2024-09-03 14:17 | Outpatient (BNVA) | payer MEDICAID, SELFPAY | PROVIDERS: PCP Nurse Practitioner Family; Visit Provider Thoracic Surgery (Cardiothoracic Vascular Surgery) | DX: I96 Gangrene, not elsewhere classified (principal); I87.2 Venous insufficiency (chronic) (peripheral); L97.821 Non-pressure chronic ulcer of other part of left lower leg limited to breakdown of skin | CPT/HCPCS: 15271; 15272; A6206; A6250; A6253 ==

== ENCOUNTER → 2024-09-09 15:12 | Outpatient (BNVA) | payer MEDICAID, SELFPAY | PROVIDERS: PCP Nurse Practitioner Family; Visit Provider Thoracic Surgery (Cardiothoracic Vascular Surgery) | DX: I87.2 Venous insufficiency (chronic) (peripheral) (principal); L97.822 Non-pressure chronic ulcer of other part of left lower leg with fat layer exposed | CPT/HCPCS: 29581 ==

== ENCOUNTER → 2024-09-16 14:31 | Outpatient (BNVA) | payer MEDICAID, SELFPAY | PROVIDERS: PCP Nurse Practitioner Family; Visit Provider Thoracic Surgery (Cardiothoracic Vascular Surgery) | DX: I96 Gangrene, not elsewhere classified (principal); I87.2 Venous insufficiency (chronic) (peripheral); L97.821 Non-pressure chronic ulcer of other part of left lower leg limited to breakdown of skin | CPT/HCPCS: 97597; A6021; A6251 ==

== ENCOUNTER → 2024-09-23 15:05 | Outpatient (BNVA) | payer MEDICAID, SELFPAY | PROVIDERS: PCP Nurse Practitioner Family; Visit Provider Thoracic Surgery (Cardiothoracic Vascular Surgery) | DX: I96 Gangrene, not elsewhere classified (principal); I87.2 Venous insufficiency (chronic) (peripheral); L97.821 Non-pressure chronic ulcer of other part of left lower leg limited to breakdown of skin | CPT/HCPCS: 97597; A6197; A6251 ==

== ENCOUNTER → 2024-09-30 15:40 | Outpatient (BNVA) | payer MEDICAID, SELFPAY | PROVIDERS: PCP Nurse Practitioner Family; Visit Provider Thoracic Surgery (Cardiothoracic Vascular Surgery) | DX: I96 Gangrene, not elsewhere classified (principal); I87.2 Venous insufficiency (chronic) (peripheral); L97.821 Non-pressure chronic ulcer of other part of left lower leg limited to breakdown of skin | CPT/HCPCS: 97597; A6197; A6253 ==

== ENCOUNTER → 2024-10-07 15:28 | Outpatient (BNVA) | payer MEDICAID, SELFPAY | PROVIDERS: PCP Nurse Practitioner Family; Visit Provider Thoracic Surgery (Cardiothoracic Vascular Surgery) | DX: I96 Gangrene, not elsewhere classified (principal); I87.2 Venous insufficiency (chronic) (peripheral); L97.821 Non-pressure chronic ulcer of other part of left lower leg limited to breakdown of skin | CPT/HCPCS: 97597 ==

== ENCOUNTER → 2024-10-14 14:47 | Outpatient (BNVA) | payer MEDICAID, SELFPAY | PROVIDERS: PCP Nurse Practitioner Family; Visit Provider Thoracic Surgery (Cardiothoracic Vascular Surgery) | DX: I96 Gangrene, not elsewhere classified (principal); I87.2 Venous insufficiency (chronic) (peripheral); L97.821 Non-pressure chronic ulcer of other part of left lower leg limited to breakdown of skin | CPT/HCPCS: A6197; A6253 ==

== ENCOUNTER → 2024-10-21 15:10 | Outpatient (BNVA) | payer MEDICAID, SELFPAY | PROVIDERS: PCP Nurse Practitioner Family; Visit Provider Thoracic Surgery (Cardiothoracic Vascular Surgery) | DX: I96 Gangrene, not elsewhere classified (principal); I87.2 Venous insufficiency (chronic) (peripheral); L97.821 Non-pressure chronic ulcer of other part of left lower leg limited to breakdown of skin | CPT/HCPCS: 97597; A6197; A6252 ==

== ENCOUNTER → 2024-10-28 14:41 | Outpatient (BNVA) | payer MEDICAID, SELFPAY | PROVIDERS: PCP Nurse Practitioner Family; Visit Provider Thoracic Surgery (Cardiothoracic Vascular Surgery) | DX: I96 Gangrene, not elsewhere classified (principal); I87.2 Venous insufficiency (chronic) (peripheral); L97.821 Non-pressure chronic ulcer of other part of left lower leg limited to breakdown of skin | CPT/HCPCS: 97597; A6197; A6252 ==

== ENCOUNTER → 2024-11-04 14:50 | Outpatient (BNVA) | payer MEDICAID, SELFPAY | PROVIDERS: PCP Nurse Practitioner Family; Visit Provider Thoracic Surgery (Cardiothoracic Vascular Surgery) | DX: E11.52 Type 2 diabetes mellitus with diabetic peripheral angiopathy with gangrene (principal); E11.622 Type 2 diabetes mellitus with other skin ulcer; L97.821 Non-pressure chronic ulcer of other part of left lower leg limited to breakdown of skin | CPT/HCPCS: 97597; A6197; A6253 ==

== ENCOUNTER → 2024-11-11 15:17 | Outpatient (BNVA) | payer MEDICAID, SELFPAY | PROVIDERS: PCP Nurse Practitioner Family; Visit Provider Thoracic Surgery (Cardiothoracic Vascular Surgery) | DX: I96 Gangrene, not elsewhere classified (principal); I87.2 Venous insufficiency (chronic) (peripheral); L97.821 Non-pressure chronic ulcer of other part of left lower leg limited to breakdown of skin | CPT/HCPCS: 97597; A6197; A6252 ==

== ENCOUNTER → 2024-11-18 14:17 | Outpatient (BNVA) | payer MEDICAID, SELFPAY | PROVIDERS: PCP Nurse Practitioner Family; Visit Provider Thoracic Surgery (Cardiothoracic Vascular Surgery) | DX: I96 Gangrene, not elsewhere classified (principal); I87.2 Venous insufficiency (chronic) (peripheral); L97.821 Non-pressure chronic ulcer of other part of left lower leg limited to breakdown of skin | CPT/HCPCS: 97597; A6021; A6253 ==

== ENCOUNTER → 2024-11-25 15:03 | Outpatient (BNVA) | payer MEDICAID, SELFPAY | PROVIDERS: PCP Nurse Practitioner Family; Visit Provider Thoracic Surgery (Cardiothoracic Vascular Surgery) | DX: I96 Gangrene, not elsewhere classified (principal); I87.2 Venous insufficiency (chronic) (peripheral); L97.821 Non-pressure chronic ulcer of other part of left lower leg limited to breakdown of skin | CPT/HCPCS: 97597 ==

== ENCOUNTER → 2024-12-02 15:14 | Outpatient (BNVA) | payer MEDICAID, SELFPAY | PROVIDERS: PCP Nurse Practitioner Family; Visit Provider Thoracic Surgery (Cardiothoracic Vascular Surgery) | DX: I96 Gangrene, not elsewhere classified (principal); I87.2 Venous insufficiency (chronic) (peripheral); L97.821 Non-pressure chronic ulcer of other part of left lower leg limited to breakdown of skin | CPT/HCPCS: 97597; A6197; A6253 ==

== ENCOUNTER → 2024-12-09 15:09 | Outpatient (BNVA) | payer MEDICAID, SELFPAY | PROVIDERS: PCP Nurse Practitioner Family; Visit Provider Thoracic Surgery (Cardiothoracic Vascular Surgery) | DX: I96 Gangrene, not elsewhere classified (principal); I87.2 Venous insufficiency (chronic) (peripheral); L97.821 Non-pressure chronic ulcer of other part of left lower leg limited to breakdown of skin | CPT/HCPCS: 97597; A6021 ==

== ENCOUNTER → 2024-12-16 14:53 | Outpatient (BNVA) | payer MEDICAID, SELFPAY | PROVIDERS: PCP Nurse Practitioner Family; Visit Provider Thoracic Surgery (Cardiothoracic Vascular Surgery) | DX: I96 Gangrene, not elsewhere classified (principal); I87.2 Venous insufficiency (chronic) (peripheral); L97.821 Non-pressure chronic ulcer of other part of left lower leg limited to breakdown of skin | CPT/HCPCS: 97597; A6021; A6252 ==

== ENCOUNTER → 2024-12-23 14:46 | Outpatient (BNVA) | payer MEDICAID, SELFPAY | PROVIDERS: PCP Nurse Practitioner Family; Visit Provider Thoracic Surgery (Cardiothoracic Vascular Surgery) | DX: I96 Gangrene, not elsewhere classified (principal); I87.2 Venous insufficiency (chronic) (peripheral); L97.821 Non-pressure chronic ulcer of other part of left lower leg limited to breakdown of skin | CPT/HCPCS: 97597; A6021 ==

== ENCOUNTER → 2024-12-30 14:48 | Outpatient (BNVA) | payer MEDICAID, SELFPAY | PROVIDERS: PCP Nurse Practitioner Family; Visit Provider Thoracic Surgery (Cardiothoracic Vascular Surgery) | DX: I96 Gangrene, not elsewhere classified (principal); I87.2 Venous insufficiency (chronic) (peripheral); L97.821 Non-pressure chronic ulcer of other part of left lower leg limited to breakdown of skin | CPT/HCPCS: 97597; A6021; A6251 ==

== ENCOUNTER → 2025-01-06 14:50 | Outpatient (BNVA) | payer MEDICAID, SELFPAY | PROVIDERS: PCP Nurse Practitioner Family; Visit Provider Thoracic Surgery (Cardiothoracic Vascular Surgery) | DX: I96 Gangrene, not elsewhere classified (principal); I87.2 Venous insufficiency (chronic) (peripheral); L97.821 Non-pressure chronic ulcer of other part of left lower leg limited to breakdown of skin | CPT/HCPCS: 97597; A6253 ==

== ENCOUNTER → 2025-01-13 14:57 | Outpatient (BNVA) | payer MEDICAID, SELFPAY | PROVIDERS: PCP Nurse Practitioner Family; Visit Provider Thoracic Surgery (Cardiothoracic Vascular Surgery) | DX: I96 Gangrene, not elsewhere classified (principal); I87.2 Venous insufficiency (chronic) (peripheral); L97.821 Non-pressure chronic ulcer of other part of left lower leg limited to breakdown of skin | CPT/HCPCS: 97597; A6021; A6252 ==

== ENCOUNTER → 2025-01-20 14:58 | Outpatient (BNVA) | payer MEDICAID, SELFPAY | PROVIDERS: PCP Nurse Practitioner Family; Visit Provider Thoracic Surgery (Cardiothoracic Vascular Surgery) | DX: I96 Gangrene, not elsewhere classified (principal); I87.2 Venous insufficiency (chronic) (peripheral); L97.821 Non-pressure chronic ulcer of other part of left lower leg limited to breakdown of skin | CPT/HCPCS: 97597 ==

== ENCOUNTER → 2025-02-10 14:58 | Outpatient (BNVA) | payer MEDICAID, SELFPAY | PROVIDERS: PCP Nurse Practitioner Family; Visit Provider Thoracic Surgery (Cardiothoracic Vascular Surgery) | DX: I96 Gangrene, not elsewhere classified (principal); I87.2 Venous insufficiency (chronic) (peripheral); L97.821 Non-pressure chronic ulcer of other part of left lower leg limited to breakdown of skin | CPT/HCPCS: 97597; A6021; A6252 ==

== ENCOUNTER → 2025-02-24 15:10 | Outpatient (BNVA) | payer MEDICAID, SELFPAY | PROVIDERS: PCP Nurse Practitioner Family; Visit Provider Thoracic Surgery (Cardiothoracic Vascular Surgery) | DX: I96 Gangrene, not elsewhere classified (principal); I87.2 Venous insufficiency (chronic) (peripheral); L97.821 Non-pressure chronic ulcer of other part of left lower leg limited to breakdown of skin | CPT/HCPCS: 97597 ==

== ENCOUNTER → 2025-03-10 14:52 | Outpatient (BNVA) | payer MEDICAID, SELFPAY | PROVIDERS: PCP Nurse Practitioner Family; Visit Provider Thoracic Surgery (Cardiothoracic Vascular Surgery) | DX: I96 Gangrene, not elsewhere classified (principal); I87.2 Venous insufficiency (chronic) (peripheral); L97.821 Non-pressure chronic ulcer of other part of left lower leg limited to breakdown of skin | CPT/HCPCS: 97597; A6021; A6252 ==

== ENCOUNTER → 2025-03-17 14:45 | Outpatient (BNVA) | payer MEDICAID, SELFPAY | PROVIDERS: PCP Nurse Practitioner Family; Visit Provider Thoracic Surgery (Cardiothoracic Vascular Surgery) | DX: I96 Gangrene, not elsewhere classified (principal); I87.2 Venous insufficiency (chronic) (peripheral); L97.821 Non-pressure chronic ulcer of other part of left lower leg limited to breakdown of skin | CPT/HCPCS: 97597; A6252 ==

== ENCOUNTER → 2025-03-24 14:53 | Outpatient (BNVA) | payer MEDICAID, SELFPAY | PROVIDERS: PCP Nurse Practitioner Family; Visit Provider Thoracic Surgery (Cardiothoracic Vascular Surgery) | DX: I96 Gangrene, not elsewhere classified (principal); I87.2 Venous insufficiency (chronic) (peripheral); L97.821 Non-pressure chronic ulcer of other part of left lower leg limited to breakdown of skin | CPT/HCPCS: 97597 ==

== ENCOUNTER → 2025-03-30 14:56 | Outpatient (BNVA) | payer MEDICAID, SELFPAY | PROVIDERS: PCP Nurse Practitioner Family; Visit Provider Thoracic Surgery (Cardiothoracic Vascular Surgery) | DX: I96 Gangrene, not elsewhere classified (principal); I87.2 Venous insufficiency (chronic) (peripheral); L97.821 Non-pressure chronic ulcer of other part of left lower leg limited to breakdown of skin | CPT/HCPCS: 97597; A6252 ==